=== PATIENT | male | born 1965 | race Caucasian/White ===

== ENCOUNTER → 2018-05-17 14:05 | Outpatient (CLI) | payer OTHER, MEDICAID, SELFPAY ==
--- NOTE | 2018-05-17 | DI.RAD.S_ITS ---
PROCEDURE: XR KNEE RT 3V INDICATIONS: R KNEE EFFUSION TECHNIQUE: 3 views of the knee were acquired. COMPARISON: None. FINDINGS: Bones: No fractures or dislocations. No suspicious bony lesions. Posterior patellar marginal spurs. Soft tissues: Mild joint effusion. No suspicious soft tissue calcifications. IMPRESSION: 1. Early degenerative changes femoral patellar joint. 2. Small knee joint effusion. Dictated by: Álvaro Blanton M.D. on 05/17/2018 at 15:03 Approved by: Álvaro Blanton M.D. on 05/17/2018 at 15:04
== END ==
PROVIDERS: Visit Provider Nurse Practitioner
DX: M25.461 Effusion, right knee (principal)
CPT/HCPCS: 73562

== ENCOUNTER → 2018-06-08 15:26 | Outpatient (CLI) | payer OTHER, MEDICAID, SELFPAY ==
--- NOTE | 2018-06-08 | DI.RAD.S_ITS ---
PROCEDURE: XR KNEE LT 3V INDICATIONS: LEFT KNEE PAIN TECHNIQUE: 3 views of the knee were acquired. COMPARISON: None. FINDINGS: Bones: No fractures or dislocations. No suspicious bony lesions. Soft tissues: Possible small joint effusion. No suspicious soft tissue calcifications. IMPRESSION: Possible small knee joint effusion. Dictated by: Cuco Rene M.D. on 06/08/2018 at 16:13 Approved by: Cuco Rene M.D. on 06/08/2018 at 16:15
== END ==
PROVIDERS: Family Provider Physical Medicine & Rehabilitation; PCP Physical Medicine & Rehabilitation; Visit Provider Nurse Practitioner
DX: M25.562 Pain in left knee (principal)
CPT/HCPCS: 73562

== ENCOUNTER → 2020-01-30 11:02 | Outpatient (CLI) | payer OTHER, MEDICAID, SELFPAY ==
--- NOTE | 2020-01-30 11:06 | DIET.PN ---
Dietary Progress Note Assessment: 54y M here for 50# wt gain over past year and concerns for preDM wanting nutrition advice to lose weight and lower A1c. 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 Labs/meds: pre-DM, takes testosterone, once daily protonix, HTN med BP reported as 120/70 HT: 5'11 WT: 310# UBW: gained 40-50# in past year BMI: 43.2 Usual Day: wakes 4-7am-doesn't sleep well B: [employer] Energy drink (Bang-apple, rain) 930: grape nuts c 2% and banana, Lithuanian muffin c butter or bagel sandwich c thai, ham 2pm: Progresso soup c saltines, aged cheddar, or bagel sandwich 6pm: Has dinner c Mom: homemade pizza on naan, split pea soup, chicken soup, freezer chicken pot pie evening snack: ice cream- Breyers vanilla villar c a cookie (4-5 servings out of a quart) avoids high fructose corn syrup Physical Activity: currently no planned activity, wants to start swimming once he gets a job and a regular schedule. Impression: Pt hx includes competitive athletic training c ability to consume thousands of calories per day. Pt diet is carbohydrate heavy (~90g for breakfast) with moderate protein and low in fruits and veggies along with large portion size. This disproportion along with sedentary lifestyle has led to accelerated weight gain along with aggravation of LE edema, sleep apnea, poor sleep, and GERD breakthrough sx. Nutrition Diagnosis:obesity r/t undesirable food choices and physical inactivity aeb pt food recall shows high carb, low F/V, and excessive kcals, pt has no current planned physical activity, weight gain of 50# in past year, and BMI 43.2. Interventions: 1. Discussed overall diet imbalance, brain stormed strategies to balance meals and snacks. 2. Discussed weight loss options including carb controlled diet, intermittent fasting, ketogenic diet, [employer], and bariatric surgery with a focus on lifestyle change being a consistent factor in being able to sustain weight loss. Pt expressed frustration in wanting to lose weight but not wanting to do the work to get there, hoping a quick fix diet would cause sustained weight loss. Pt interested in meal delivery system like [employer], however, this RD expressed portions were small and overall food quality low. Pt received carb counting information and recc limiting carbs to 45g per meal and 30g per snack as well as a food group balance sheet to encourage pt to increase F/V. Monitoring/Evaluations: Pt may schedule f/u once he is employed and has started working out
== END ==
PROVIDERS: Family Provider Physical Medicine & Rehabilitation; PCP Nurse Practitioner Family; Referring Provider Nurse Practitioner Family; Visit Provider Nurse Practitioner Family
DX: E66.9 Obesity, unspecified (principal); Z68.41 Body mass index [BMI] 40.0-44.9, adult; Z71.3 Dietary counseling and surveillance
CPT/HCPCS: 97802

== ENCOUNTER 2020-10-01 09:04 | Outpatient (RCR) | payer OTHER, MEDICAID, SELFPAY ==
--- NOTE | 2020-10-01 09:28 | PT-OP ANOTE ---
Pt arrives late to evaluation. Upon bringing pt back to room, he reports agitation about having to wear mask. He states that he cannot tolerate wearing a mask and asks to leave. Will d/c PT eval and appointments.
--- NOTE | 2020-10-01 09:37 | PT.OPDS ---
Pt does not tolerate mask wearing and states that he cannot do PT if he has to wear a mask, leaves clinic. Current Diagnoses Low back pain (10/01/20) Other symptoms and signs involving the musculoskeletal system (10/01/20) Visit Care Team Role Provider Type ALEKS Darling Family Provider Non-Staff Specialty: Medical Address: [address] [place] [address] [place], [address] Email: Cristian Landon MD Attending Provider Non-Staff Primary Care Provider Referring Provider Specialty: General Surgery Address: [address] [place] [address], [id number] Email:
== END 2020-10-06 08:37 ==
LOC: PHYS 09:04
PROVIDERS: Family Provider Nurse Practitioner Family; PCP Surgery; Referring Provider Surgery; Visit Provider Surgery
DX: M54.5 Low back pain (principal); R29.898 Other symptoms and signs involving the musculoskeletal system

== ENCOUNTER → 2020-10-01 09:47 | Outpatient (CLI) | payer OTHER, MEDICAID, SELFPAY ==
[2020-10-01 11:34] LABS: Prostate Specific Antigen 3.45 ng/mL (0.10-4.00)
== END ==
PROVIDERS: Family Provider Nurse Practitioner Family; PCP Nurse Practitioner Family; Referring Provider Urology; Visit Provider Urology
DX: Z12.5 Encounter for screening for malignant neoplasm of prostate (principal)
CPT/HCPCS: 36415; 84153

== ENCOUNTER 2021-03-10 09:44 | Emergency (ER) | payer OTHER, MEDICAID, SELFPAY ==
[2021-03-10 09:45] VITALS: BP 140/68; PULSE 98; RESP 18; TEMP 36.6; O2SAT 100; BMI 18.8
--- NOTE | 2021-03-10 09:47 | ED_ITS ---
HPI - SOB/Dyspnea General Chief Complaint: Chest Pain Stated Complaint: See if he has Blood clots in lungs, per his DR. Time Seen by Provider: 03/10/21 09:47 Source: patient Mode of arrival: Ambulatory Limitations: no limitations History of Present Illness HPI Narrative: 55-year-old male nonsmoker with history of BPH presents with a chief complaint of a reproducible sharp and stabbing area of pain in his right lateral chest. He states it started a few days ago when he was bending over lifting something. His pain is worse with motion and palpation. He denies any squeezing, heaviness or exertional component. Denies shortness of breath, nausea, vomiting or unexplained diaphoresis. He denies worsening with short of breath and no cough or hemoptysis. He denies any history of cancer or blood clot nor any recent travel. MD Complaint: chest pain Onset (ago): day(s) Context: other Severity: mild Consistency/Duration: intermittent Relieving factors: rest Exacerbating factors: movement Associated symptoms: denies other symptoms Treatment prior to arrival: none Related Data Home oxygen amount: none Home Medications Medication Instructions Recorded Confirmed doxazosin 8 mg tablet 8 mg PO DAILY 12/12/20 12/17/20 losartan 100 mg tablet 100 mg PO DAILY 12/12/20 12/17/20 pantoprazole 20 mg tablet,delayed 20 mg PO DAILY 12/12/20 12/17/20 release testosterone 50 mg/5 gram (1 %) 1 packet TRANSDERMAL DAILY 12/12/20 12/17/20 transdermal gel Previous Rx's Medication Instructions Recorded ketorolac 10 mg PO Q6H PRN #14 tab 03/10/21 lidocaine [Lidoderm] 1 patch TOP DAILY #15 each 03/10/21 Allergies Allergy/AdvReac Type Severity Reaction Status Date / Time No Known Drug Allergies Allergy Verified 03/10/21 10:02 Review of Systems Constitutional Constitutional: Denies chills, Denies fatigue, Denies fever(s), Denies frequent falls, Denies lethargy and Denies weakness Eyes Eyes: Denies change in vision, Denies eye discharge, Denies irritation and Denie s loss of vision ENT Ears, Nose, Mouth, and Throat: Denies change in voice, Denies dizziness, Denies neck pain, Denies sore throat and Denies throat swelling Cardiovascular Cardiovascular: Denies chest pain, Denies irregular heart rhythm, Denies lightheadedness, Denies palpitations, Denies dyspnea, Denies dyspnea on exertion and Denies orthopnea Comments: Sharp and stabbing reproducible chest pain right lateral ribs Respiratory Respiratory: Denies cough, Denies dyspnea, Denies dyspnea on exertion and Denies wheezing Gastrointestinal Gastrointestinal: Denies abdominal pain, Denies change in bowel habits, Denies diarrhea, Denies nausea and Denies vomiting Musculoskeletal Musculoskeletal: Denies neck pain and Denies numbness Integumentary/Breasts Skin/Breast: Denies pruritus, Denies erythema, Denies rash and Denies wounds Neurologic Neurologic: Denies behavioral changes, Denies confusion, Denies dizziness, Denies frequent falls, Denies loss of vision, Denies numbness and Denies weakness Psychiatric Psychiatric: Denies anxiety, Denies behavioral changes, Denies confusion, Denies depression, Denies homicidal ideation and Denies suicidal ideation Endocrine Endocrine: Denies fatigue, Denies flushing and Denies palpitations Hematologic/Lymphatic Hematologic/Lymphatic: Denies easy bruising Allergic/Immunologic Allergic/Immunologic: Denies urticaria, Denies throat swelling and Denies wheezing Patient History Medical History (Updated 03/10/21 @ 11:22 by Alvarez Elizalde DO) BPH w urinary obs/LUTS GERD (gastroesophageal reflux disease) Hypertension Surgical History History of carpal tunnel surgery History of knee replacement History of lumbar discectomy History of tonsillectomy Social History marital status: occupational status: employed Smoking Status: Never smoker alcohol intake: never caffeine: Yes Smoking Status: Never smoker Exam Narrative Exam Narrative: GENERAL: [55] year old patient appears stated age. Well- nourished, well-developed patient, in mild distress. HEAD: Atraumatic. Normocephalic. EYES: Pupils equal round and reactive. Extraocular motions intact. No scleral icterus. No injection or drainage. ENT: Nose without bleeding, purulent drainage. Throat without erythema, tonsillar hypertrophy or exudate. Airway patent. NECK: Trachea midline. Non tender CARDIOVASCULAR: Regular rate and rhythm without murmurs, gallops, or rubs. Reproducible, pinpoint tenderness on the right lateral rib worse with palpation and range of motion of right upper extremity. This is the pain that brought him in. Skin is exposed and no erythema, vesicles or other abnormal finding RESPIRATORY: Clear to auscultation. Breath sounds equal bilaterally. No wheezes, rales, or rhonchi. GASTROINTESTINAL: Abdomen soft, non-tender, nondistended. EXTREMITIES: No edema or joint tenderness. BACK: Nontender without deformity or crepitance. No flank tenderness. NEURO: AOx3. SKIN: No rash or erythema of visible areas Initial Vital Signs Initial Vital Signs: Vital Signs Temperature 97.9 F 03/10/21 09:45 Pulse Rate 98 H 03/10/21 09:45 Respiratory Rate 18 03/10/21 09:45 Blood Pressure 140/68 03/10/21 09:45 Pulse Oximetry 100 03/10/21 09:45 Scores HEART Score Heart Score history: Slightly Suspicious Heart Score EKG: Normal Heart Score Age: 45-64 years old Heart Score risk factors: No known risk factors Heart Score troponin: < or = to normal limit Heart Score Total: 1 Course Orders Ordered: ED Orders 03/10/21 09:50 XR chest 1V Stat EKG-12 Lead Stat 03/10/21 10:18 Complete Blood Count AUTO DIFF Stat Comprehensive Metabolic Panel Stat D Dimer Stat Lipase Stat NT-proBNP (BNP-Adult 18+) Stat Troponin & CK Cardiac Panel Stat Discontinued Medications Sodium Chloride (Normal Saline 0.9%) 1,000 mls @ 150 mls/hr IV CONT REGGIE Last Admin: 03/10/21 11:16 Dose: 150 mls/hr Documented by: CRUZ Ketorolac Tromethamine (Ketorolac 60 Mg/2 Ml Vial) 15 mg IV NOW ONE Stop: 03/10/21 11:21 Last Admin: 03/10/21 11:31 Dose: 15 mg Documented by: CRUZ Vital Signs Vital signs: Vital Signs - 8 hr 03/10/21 09:45 03/10/21 11:52 Temperature 97.9 F Pulse Rate 98 H 75 Respiratory Rate 18 18 Blood Pressure 140/68 145/77 H Pulse Oximetry 100 95 MDM - SOB/Dyspnea Lab Data Result diagrams: 03/10/21 10:18 03/10/21 10:18 Labs: Lab Results 03/10/21 03/10/21 03/10/21 Range/Units 10:18 10:18 10:18 WBC 8.9 (4.5-11.0) X10^3/uL RBC 5.01 (4.5-5.9) X10^6/uL Hgb 14.3 (13.5-17.5) g/dL Hct 44.1 (41-53) % MCV 88.1 (80-100) fL MCH 28.6 (26-34) PG MCHC 32.5 (30-36) % RDW 15.1 H (11.6-14.8) % Plt Count 187 (150-400) X10^3/uL Neut % (Auto) 80.1 H (50-75) % Lymph % (Auto) 8.0 L (25-40) % [place] % (Auto) 8.9 (3-14) % Eos % (Auto) 2.1 (2-4) % Baso % (Auto) 0.9 (0-2) % Neut # (Auto) 7100 H (4039-0442) /uL Lymph # (Auto) 700 L (0093-4985) /uL [place] # (Auto) 800 (0-900) /uL Eos # (Auto) 200 (0-450) /uL Baso # (Auto) 100 (0-100) /uL D-Dimer 383 H (<230) ng/mL Sodium (137-145) mmol/L Potassium (3.4-5.1) mmol/L Chloride (98-107) mmol/L Carbon Dioxide (22-32) mmol/L BUN (9-20) mg/dL Creatinine (0.66-1.25) mg/dL Estimated GFR (>60) mL/min BUN/Creatinine Ratio (6-22) Glucose (70-100) mg/dL Calcium (8.4-10.2) mg/dL Total Bilirubin (0.2-1.3) mg/dL AST (17-59) IU/L ALT (<50) IU/L Alkaline Phosphatase (38-126) U/L Total Creatine Kinase (55-170) U/L CK-MB (CK-2) (<2.37) ng/mL CK-MB (CK-2) Rel Index (1.5-5.0) % Troponin I (0.01-0.034) ng/mL NT-Pro-B Natriuret Pep 39 (<125) pg/mL Total Protein (6.3-8.2) g/dL Albumin (3.5-5.0) g/dL Globulin (1.7-4.1) g/dL Albumin/Globulin Ratio (1.0-2.8) Lipase (23-300) U/L 03/10/ Range/Units 10:18 WBC (4.5-11.0) X10^3/uL RBC (4.5-5.9) X10^6/uL Hgb (13.5-17.5) g/dL Hct (41-53) % MCV (80-100) fL MCH (26-34) PG MCHC (30-36) % RDW (11.6-14.8) % Plt Count (150-400) X10^3/uL Neut % (Auto) (50-75) % Lymph % (Auto) (25-40) % [place] % (Auto) (3-14) % Eos % (Auto) (2-4) % Baso % (Auto) (0-2) % Neut # (Auto) (9405-4093) /uL Lymph # (Auto) (2167-3028) /uL [place] # (Auto) (0-900) /uL Eos # (Auto) (0-450) /uL Baso # (Auto) (0-100) /uL D-Dimer (<230) ng/mL Sodium 138 (137-145) mmol/L Potassium 4.1 (3.4-5.1) mmol/L Chloride 100 (98-107) mmol/L Carbon Dioxide 30 (22-32) mmol/L BUN 16 (9-20) mg/dL Creatinine 0.88 (0.66-1.25) mg/dL Estimated GFR > 60.0 (>60) mL/min BUN/Creatinine Ratio 18.2 (6-22) Glucose 157 H (70-100) mg/dL Calcium 9.2 (8.4-10.2) mg/dL Total Bilirubin 0.5 (0.2-1.3) mg/dL AST 30 (17-59) IU/L ALT 36 (<50) IU/L Alkaline Phosphatase 75 (38-126) U/L Total Creatine Kinase 308 H (55-170) U/L CK-MB (CK-2) 7.20 H (<2.37) ng/mL CK-MB (CK-2) Rel Index 2.3 (1.5-5.0) % Troponin I < 0.012 (0.01-0.034) ng/mL NT-Pro-B Natriuret Pep (<125) pg/mL Total Protein 6.5 (6.3-8.2) g/dL Albumin 3.9 (3.5-5.0) g/dL Globulin 2.6 (1.7-4.1) g/dL Albumin/Globulin Ratio 1.5 (1.0-2.8) Lipase 33 (23-300) U/L MDM Narrative Medical decision making narrative: Multiple causes of chest pain considered including KS, PE, pneumothorax, pneumonia, aortic dissection, and pleurisy. Patient reports no radiation, no diaphoresis, no provocation with exertion, and no vomiting Patient's symptoms improved over duration of stay with above-stated therapies. Findings and discharge diagnosis discussed with patient/family followed by verbalization of understanding Return precautions discussed with patient/family whom verbalize understanding. Discharge Plan Departure Patient Disposition: Home Clinical Impression: Atypical chest pain Instructions: DI for Atypical Chest Pain Activity Restrictions/Additional Instructions: *You have been diagnosed with [chest wall pain consistent with inflammation or spasm. Your lab work, EKG, chest x-ray are very reassuring] *What to do: *Take medications as directed *Follow up with your primary care provider in 2-3 days, call for an appointment. Let them know you were seen in the Emergency Department and that we ask that you be seen in follow up *Return to ER if you should have any new, worsening or concerning symptoms, such as [increasing pain, shortness of breath, fever greater than 101 or other bothersome symptoms] Prescriptions: New ketorolac 10 mg tablet 10 mg PO Q6H PRN (Reason: pain) Qty: 14 RF: 0 lidocaine [Lidoderm] 5 % adhesive patch,medicated 1 patch TOP DAILY Qty: 15 RF: 0 No Action doxazosin 8 mg tablet 8 mg PO DAILY RF: 0 testosterone 50 mg/5 gram (1 %) gel 1 packet transdermal DAILY RF: 0 pantoprazole 20 mg tablet,delayed release (DR/EC) 20 mg PO DAILY RF: 0 losartan 100 mg tablet 100 mg PO DAILY RF: 0 Referrals: [place],Jennifer, GARMENT PRESSER [Primary Care Provider] -
--- NOTE | 2021-03-10 09:50 | DI.RAD.S_ITS ---
PROCEDURE: XR CHEST 1V INDICATIONS: severe right sided chest pain TECHNIQUE: One view of the chest was acquired. COMPARISON: None. FINDINGS: Surgical changes and devices: None. Lungs and pleura: Lungs are clear. No pleural effusions or pneumothorax. Mediastinum: Mediastinal contours appear normal. Heart size is normal. Bones and chest wall: No suspicious bony lesions. Overlying soft tissues appear unremarkable. IMPRESSION: No acute cardiopulmonary disease process. Dictated by: Debbi Barnhart MD, PhD on 03/10/2021 at 10:42 Approved by: Debbi Barnhart MD, PhD on 03/10/2021 at 10:43
[2021-03-10 10:31] LABS: Add Manual Diff / Slide Review NO; Basophils Absolute Auto 100 /uL (0-100); Basophils Percent Auto 0.9 % (0-2); Eosinophils Absolute Auto 200 /uL (0-450); Eosinophils Percent Auto 2.1 % (2-4); Hematocrit 44.1 % (41-53); Hemoglobin 14.3 g/dL (13.5-17.5); Lymphocytes Absolute Auto 700 /uL (1100-4500); Mean Corpuscular HGB Conc 32.5 % (30-36); Mean Corpuscular Hemoglobin 28.6 PG (26-34); Mean Corpuscular Volume 88.1 fL (80-100); Monocytes Absolute Auto 800 /uL (0-900); Monocytes Percent Auto 8.9 % (3-14); Neutrophils Absolute Auto 7100 /uL (1500-7000); Neutrophils Percent Auto 80.1 % (50-75); Platelet Count 187 X10^3/uL (150-400); Red Blood Cell Count 5.01 X10^6/uL (4.5-5.9); Red Cell Distribution Width 15.1 % (11.6-14.8); White Blood Cell Count 8.9 X10^3/uL (4.5-11.0)
[2021-03-10 10:42] LABS: Alanine Aminotransferase 36 IU/L (<50); Albumin 3.9 g/dL (3.5-5.0); Albumin Globulin Ratio 1.5 (1.0-2.8); Alkaline Phosphatase 75 U/L (38-126); Aspartate Aminotransferase 30 IU/L (17-59); BUN Creatinine Ratio 18.2 (6-22); Bilirubin Total 0.5 mg/dL (0.2-1.3); Blood Urea Nitrogen 16 mg/dL (9-20); Calcium 9.2 mg/dL (8.4-10.2); Carbon Dioxide 30 mmol/L (22-32); Chloride 100 mmol/L (98-107); Creatine Kinase 308 U/L (55-170); Estimated Glomerular Filt Rate > 60.0 mL/min (>60); Globulin 2.6 g/dL (1.7-4.1); Glucose 157 mg/dL (70-100); HEMOLYSIS < 15 (0-50); Lipase 33 U/L (23-300); Potassium 4.1 mmol/L (3.4-5.1); Sodium 138 mmol/L (137-145); Total Protein 6.5 g/dL (6.3-8.2)
[2021-03-10 10:44] LABS: D Dimer 383 ng/mL (<230)
[2021-03-10 10:51] LABS: NT-proBNP (BNP-Adult 18+) 39 pg/mL (<125)
[2021-03-10 10:54] LABS: Troponin I < 0.012 ng/mL (0.01-0.034)
[2021-03-10 10:57] LABS: CKMB % Relative Index 2.3 % (1.5-5.0)
[2021-03-10] MEDS: SODIUM CHLORIDE 0.9% 1,000 ML 150 ML IV (11:16)
[2021-03-10] MEDS: KETOROLAC 60 MG/2 ML VIAL 15 MG IV (11:31)
[2021-03-10 11:52] VITALS: BP 145/77; PULSE 75; RESP 18; O2SAT 95
--- NOTE | 2021-03-16 09:25 | PC.NURSE ---
IV NS d/c at 1140 hrs.
--- NOTE | 2022-05-27 16:18 | PC.NURSE ---
Late entry: IV fluids/ NACL stopped at 1152 (03/10/21)
== END 2021-03-10 11:54 | disposition home or self-care (01) ==
PROVIDERS: Emergency Provider Emergency Medicine; Family Provider Nurse Practitioner Family; PCP Nurse Practitioner Family; Referring Provider Emergency Medicine
DX: R07.89 Other chest pain (principal)
CPT/HCPCS: 36415; 71045; 80053; 82550; 82553; 83690; 83880; 84484; 85025; 85379; 93005; 93010; 96374; 99284; J1885

== ENCOUNTER → 2021-06-23 12:08 | Outpatient (CLI) | payer OTHER, MEDICAID, SELFPAY ==
--- NOTE | 2021-06-23 | DI.RAD.S_ITS ---
PROCEDURE: XR RIBS RT 2V INDICATIONS: RIGHT SIDED CHEST WALL PAIN AT MIDAXILLARY LINE TECHNIQUE: 2 views of the right lower lateral ribs were acquired. COMPARISON: None. FINDINGS: Surgical changes and devices: None. Bones and chest wall: No dislocations. There are a total of 2 lateral rib fracture, 8 and 9th rib area. No suspicious bony lesions. Overlying soft tissues appear unremarkable. Lungs and pleura: The visualized lung appears clear. No pleural effusions or pneumothorax are visible. IMPRESSION: Lateral right 8th and 9th rib fractures. The clinical history indicates no known trauma. Nuclear medicine bone scan may be warranted to determine whether additional osseous lesions are present elsewhere. Dictated by: Jonathan James M.D. on 06/23/2021 at 15:14 Approved by: Jonathan James M.D. on 06/23/2021 at 15:17
== END ==
PROVIDERS: Family Provider Nurse Practitioner Family; PCP Nurse Practitioner Family; Referring Provider Nurse Practitioner Family; Visit Provider Nurse Practitioner Family
DX: R07.89 Other chest pain (principal); S22.41XA Multiple fractures of ribs, right side, initial encounter for closed fracture
CPT/HCPCS: 71100

== ENCOUNTER → 2021-07-21 08:29 | Outpatient (CLI) | payer OTHER, MEDICAID, SELFPAY ==
[2021-07-21 09:40] LABS: Prostate Specific Antigen 3.84 ng/mL (0.10-4.00)
== END ==
PROVIDERS: Family Provider Nurse Practitioner Family; PCP Nurse Practitioner Family; Referring Provider Specialist; Visit Provider Specialist
DX: R97.20 Elevated prostate specific antigen [PSA] (principal)
CPT/HCPCS: 36415; 84153

== ENCOUNTER → 2021-09-14 10:23 | Outpatient (CLI) | payer OTHER, MEDICAID, SELFPAY ==
[2021-09-14 11:48] LABS: Prostate Specific Antigen 3.15 ng/mL (0.10-4.00)
== END ==
PROVIDERS: Family Provider Nurse Practitioner Family; PCP Nurse Practitioner Family; Referring Provider Specialist; Visit Provider Specialist
DX: N40.1 Benign prostatic hyperplasia with lower urinary tract symptoms (principal); N13.8 Other obstructive and reflux uropathy
CPT/HCPCS: 36415; 84153

== ENCOUNTER → 2021-11-05 08:16 | Outpatient (CLI) | payer OTHER, MEDICAID, SELFPAY | PROVIDERS: Family Provider Nurse Practitioner Family; PCP Nurse Practitioner Family; Referring Provider Nurse Practitioner Family; Visit Provider Nurse Practitioner Family | DX: M25.531 Pain in right wrist (principal) | CPT/HCPCS: 95886; 95909 ==

== ENCOUNTER → 2022-04-21 12:42 | Outpatient (CLI) | payer OTHER, MEDICAID, SELFPAY ==
--- NOTE | 2022-04-21 | DI.RAD.S_ITS ---
PROCEDURE: XR LUMBAR SPINE 2-3V INDICATIONS: Low back pain, unspecified TECHNIQUE: 3 views of the lumbar spine were acquired. COMPARISON: None. FINDINGS: Bones: There are 5 [id number] lumbar vertebral bodies. There is loss of the expected lumbar lordosis. There is diffuse intervertebral disc space narrowing, endplate sclerosis, osteophytosis, and facet sclerosis throughout the lumbar spine. Mild anterior wedging is present throughout the lumbar spine. Soft tissues: Overlying bowel gas pattern is normal. No suspicious soft tissue calcifications. IMPRESSION: Severe degenerative change throughout the lumbar spine. Mild anterior wedging is likely chronic in nature. Dictated by: Carmen Junior M.D. on 04/21/2022 at 17:10 Approved by: Carmen Junior M.D. on 04/21/2022 at 17:12
== END ==
PROVIDERS: Family Provider Nurse Practitioner Family; PCP Nurse Practitioner Family; Referring Provider Naturopath; Visit Provider Naturopath
DX: M47.816 Spondylosis without myelopathy or radiculopathy, lumbar region (principal); M54.50 Low back pain, unspecified
CPT/HCPCS: 72100

== ENCOUNTER → 2022-09-14 09:08 | Outpatient (CLI) | payer OTHER, MEDICAID, SELFPAY ==
[2022-09-14 11:13] LABS: Prostate Specific Antigen 2.41 ng/mL (0.10-4.00)
== END ==
PROVIDERS: Family Provider Nurse Practitioner Family; PCP Nurse Practitioner Family; Referring Provider Specialist; Visit Provider Specialist
DX: N13.8 Other obstructive and reflux uropathy (principal); N40.1 Benign prostatic hyperplasia with lower urinary tract symptoms
CPT/HCPCS: 36415; 84153

== ENCOUNTER → 2023-01-05 11:37 | Outpatient (CLI) | payer OTHER, SELFPAY ==
--- NOTE | 2023-01-05 11:41 | DI.RAD.S_ITS ---
PROCEDURE: XR LUMBAR SPINE 2-3V INDICATIONS: OTHER INTERVERTEBRAL DISC DEGENERATION TECHNIQUE: 3 views of the lumbar spine were acquired. COMPARISON: [facility], CR, XR CHEST 1V, 03/10/2021, 10:26. [facility], CR, XR LUMBAR SPINE 2-3V, 04/21/2022, 12:50. FINDINGS: Bones: 5 [id number] vertebrae are present. There is a transitional S1. There is mild levoscoliosis. Grade 1 anterolisthesis of L5 on S1. No vertebral body compression fractures. No suspicious bony lesions. Degenerative disc disease is present, severe at L3-L4 and L4-L5, moderate at L1-L2, L2-L3 and L5-S1. Severe facet arthropathy at L4-L5 and L5-S1. Soft tissues: Overlying bowel gas pattern is normal. No suspicious soft tissue calcifications. IMPRESSION: 1. Scoliosis and severe degenerative disc and facet disease in lumbar spine. 2. Transitional anatomy is present. Dictated by: Cuco Rene M.D. on 01/05/2023 at 16:46 Approved by: Cuco Rene M.D. on 01/05/2023 at 16:50
--- NOTE | 2023-01-05 11:42 | DI.RAD.S_ITS ---
PROCEDURE: XR KNEE RT 3V INDICATIONS: PAIN IN RIGHT HIP TECHNIQUE: 3 views of the knee were acquired. COMPARISON: [facility], , XR KNEE RT 3V, 05/17/2018, 14:24. FINDINGS: Bones: No fractures or dislocations. No suspicious bony lesions. Mild tricompartmental osteoarthritic changes. Soft tissues: Trace joint effusion. No suspicious soft tissue calcifications. IMPRESSION: 1. Mild osteoarthritis. 2. Trace knee joint effusion. Dictated by: Cuco Rene M.D. on 01/05/2023 at 16:43 Approved by: Cuco Rene M.D. on 01/05/2023 at 16:44
--- NOTE | 2023-01-05 11:42 | DI.RAD.S_ITS ---
PROCEDURE: XR HIP W PEL IF DONE RT 2V INDICATIONS: PAIN TECHNIQUE: AP pelvis with lateral view(s) of the right hip(s). COMPARISON: [facility], , XR LUMBAR SPINE 2-3V, 01/05/2023, 11:57. FINDINGS: Bones: No fractures or dislocations. Pelvic ring appears intact. No suspicious bony lesions. Severe osteoarthritis of the right hip with joint space narrowing and subchondral cyst formation. There is deformity of the right femoral head. Mild arthritic changes are seen in left hip and both sacroiliac joints. [id number] degenerative disc disease in the lower lumbar spine. There is transitional anatomy with partial sacralization of L5. Soft tissues: The visualized bowel gas pattern is normal. No suspicious soft tissue calcifications. IMPRESSION: Severe osteoarthritis. Dictated by: Cuco Rene M.D. on 01/05/2023 at 16:38 Approved by: Cuco Rene M.D. on 01/05/2023 at 16:39
== END ==
PROVIDERS: Family Provider Nurse Practitioner Family; PCP Nurse Practitioner Family; Referring Provider Nurse Practitioner Family; Visit Provider Nurse Practitioner Family
DX: M51.36 Other intervertebral disc degeneration, lumbar region (principal); M47.817 Spondylosis without myelopathy or radiculopathy, lumbosacral region; M47.816 Spondylosis without myelopathy or radiculopathy, lumbar region; M51.37 Other intervertebral disc degeneration, lumbosacral region; M16.11 Unilateral primary osteoarthritis, right hip; M17.11 Unilateral primary osteoarthritis, right knee; M25.551 Pain in right hip
CPT/HCPCS: 72100; 73502; 73562

== ENCOUNTER 2024-01-29 17:11 | Observation (INO) | payer OTHER, MEDICAID, SELFPAY ==
[2024-01-29] VITALS (32 sets, daily range): BP systolic 87–178; BP diastolic 53–123; PULSE 61–114; RESP 0–38; TEMP 35.7–37.5; O2SAT 90–97; BMI 41.3
--- NOTE | 2024-01-29 17:15 | DI.RAD.S_ITS ---
PROCEDURE: XR CHEST 1V INDICATIONS: respiratory failure TECHNIQUE: One view of the chest was acquired. COMPARISON: [facility], CR, XR CHEST 1V, 03/10/2021, 10:26. FINDINGS: Surgical changes and devices: None. Lungs and pleura: Elevated left hemidiaphragm. Left basilar atelectasis. Mediastinum: Mediastinal contours appear normal. Heart size is normal. Bones and chest wall: No suspicious bony lesions. Overlying soft tissues appear unremarkable. IMPRESSION: No acute cardiopulmonary abnormality is seen. Approved by: Charanjit Oakes M.D. on 01/29/2024 at 17:30
--- NOTE | 2024-01-29 17:16 | ED.GENADULT ---
HPI - General Adult <Maxwell Mesa MD - Last Filed: 01/29/24 19:17> General Chief complaint: Shortness of Breath/Dyspnea Stated complaint: SOB Time Seen by Provider: 01/29/24 17:15 History of Present Illness HPI narrative: 58-year-old male with history of diabetes, BPH, substance use presents with shortness of breath. Patient arrives critically ill, in substantial respiratory distress in setting of reported COPD. He states he has been getting more short of breath for 2 days, with no fever or pain but with cough, though has difficulty providing history beyond this due to shortness of breath. EMS gave nebs which appeared to be starting to help. Patient is also able to note he smokes opiates, though additional history limited at this time. Related Data Home Medications Medication Instructions Recorded Confirmed losartan 100 mg tablet 100 mg PO DAILY 12/12/20 11/15/23 testosterone 50 mg/5 gram (1 %) 1 packet transdermal DAILY 12/12/20 11/15/23 transdermal gel acetylcysteine 600 mg capsule (NAC) 600 mg PO BID 11/15/23 11/15/23 metformin 500 mg tablet,extended 500 mg PO DAILY 11/15/23 11/15/23 release 24 hr Previous Rx's Medication Instructions Recorded doxazosin 8 mg tablet 8 mg PO BEDTIME #90 tabs 09/03/22 Allergies Allergy/AdvReac Type Severity Reaction Status Date / Time No Known Drug Allergies Allergy Verified 01/29/24 17:27 Review of Systems <Maxwell Mesa MD - Last Filed: 01/29/24 19:17> Review of Systems Narrative: Available history as above. Patient critically ill. Patient History <Maxwell Mesa MD - Last Filed: 01/29/24 19:17> Medical History (Updated 01/29/24 @ 22:39 by Miguel Angel Bland DO) Nocturia Diabetes Obesity BPH w urinary obs/LUTS Hypertension GERD (gastroesophageal reflux disease) Surgical History History of lumbar discectomy History of tonsillectomy History of carpal tunnel surgery History of knee replacement Social History marital status: occupational status: employed Smoking Status: Never smoker alcohol intake: never caffeine: Yes Smoking Status: Never smoker alcohol intake frequency: 0-2 drinks per day Substance Use Type: does not use Exam <Maxwell Mesa MD - Last Filed: 01/29/24 19:17> Narrative Exam Narrative: Const: Patient in severe respiratory distress, able to hold the fingers to answer questions and speak in one-word intermittently; he appears nontoxic Eyes: PERRLA, EOMI ENT: mucous membranes moist Neck: supple, non-tender Resp: Poor aeration bilaterally with faint expiratory wheezes Card: regular rate and rhythm, no murmurs Abd: non tender diffusely, no rigidity or rebound or guarding Back: no T or L spine tenderness, no CVA tenderness bilaterally Extrem: no deformities, no swelling bilateral lower extremities, 2+ distal pulses all extremities Neuro: ANOx4, voice professor grossly intact, grossly intact sensation and strength all extremities Skin: no rash, warm and dry Initial Vital Signs Initial Vital Signs: Vital Signs Pulse Rate 114 H 01/29/24 17:15 Pulse Oximetry 97 01/29/24 17:15 Oxygen Delivery Method Nasal Cannula 01/29/24 17:15 Oxygen Flow Rate 5 01/29/24 17:15 <Miguel Angel Bland DO - Last Filed: 01/29/24 23:14> Initial Vital Signs Initial Vital Signs: Vital Signs Pulse Rate 114 H 01/29/24 17:15 Pulse Oximetry 97 01/29/24 17:15 Oxygen Delivery Method Nasal Cannula 01/29/24 17:15 Oxygen Flow Rate 5 01/29/24 17:15 Course <Maxwell Mesa MD - Last Filed: 01/29/24 19:17> Course Course Narrative: This patient presents critically ill with what seems most consistent with respiratory failure from COPD, and I am immediately initiating broad and aggressive treatment and workup with BiPAP, Versed 2 mg IV for anxiety during this, steroids, nebulizers, broad-spectrum antibiotics. We are obtaining blood cultures, VBG, respiratory swab, CBC, CMP, EKG, labs as above, chest x-ray and closely reassessing. CBC with leukocytosis, no anemia or thrombocytopenia. Chemistry grossly reassuring. EKG shows sinus tachycardia without acute ischemia or immediately concerning interval prolongation. VBG does not currently show respiratory acidosis, however this is after substantial treatment. Patient's respiratory function is clearly improving, with improved aeration and now more clear wheezing, consistent with improvement. He refused further BiPAP though appears to be tolerating nasal cannula and is now speaking in full sentences. Preceding aspiration is also possible. Regardless, he is receiving antibiotics, aggressive care here and will be admitted pending remainder of workup. Radiology review of CXR below, which I agree with on my independent review: FINDINGS: Surgical changes and devices: None. Lungs and pleura: Elevated left hemidiaphragm. Left basilar atelectasis. Mediastinum: Mediastinal contours appear normal. Heart size is normal. Bones and chest wall: No suspicious bony lesions. Overlying soft tissues appear unremarkable. IMPRESSION: No acute cardiopulmonary abnormality is seen. Approved by: Charanjit Oakes M.D. on 01/29/2024 at 17:30 At this juncture, while I think COPD is most likely, I do feel patient now merits CT angio chest to rule out pulmonary embolism or assess for pneumonia or aspiration. I am signing out to Dr. Bland with plan to follow up this CT then admit. Patient continues to improve, though remains on nasal cannula. He has been updated and agrees with plan. CRITICAL CARE: I spent 45min minutes assessing, resuscitating, reassessing this patient, interpreting studies, speaking with family consultants, outside of procedures, in the setting of respiratory failure requiring BiPAP. Orders Ordered: ED Orders 01/29/24 17:15 XR chest 1V Stat EKG-12 Lead Stat 01/29/24 17:20 CBC Auto Diff [Complete Blood Count AUTO DIFF] Stat CMP [Comprehensive Metabolic Panel] Stat Troponin I Stat 01/29/24 17:30 Covid-19 + FLU A/B + RSV - PCR Stat 01/29/24 18:05 Blood Culture Stat 01/29/24 18:09 VBG [Venous Blood Gas] Stat 01/29/24 18:58 CT angio chest PE protocol Stat Albuterol (Albuterol 2.5 Mg/3 Ml Neb (Adult)) 2.5 mg INH [id number] PRN PRN Reason: Shortness Of Breath Albuterol/Ipratropium (Albuterol/Ipratropium 3 Ml Ampul) 3 ml INH RTQ4HR PRN PRN Reason: Shortness Of Breath Last Admin: 01/29/24 17:47 Dose: 3 ml Documented By: DUNG Discontinued Medications Piperacillin Sod/Tazobactam (Sod 4.5 gm/ Sodium Chloride) 100 mls @ 200 mls/hr IV NOW ONE Stop: 01/29/24 17:21 Last Infusion: 01/29/24 18:22 Dose: Infused Documented By: Admin: 01/29/24 17:48 Dose: 200 mls/hr Documented By: DUNG Lorazepam (Lorazepam 2 Mg/Ml Inj) 1 mg IV NOW ONE Stop: 01/29/24 20:08 Last Admin: 01/29/24 20:10 Dose: 1 mg Documented By: TANA Methylprednisolone (Methylprednisolone 125 Mg/2 Ml Vial) 125 mg IV NOW ONE Stop: 01/29/24 17:21 Last Admin: 01/29/24 17:48 Dose: 125 mg Documented By: DUNG Midazolam HCl (Midazolam 2 Mg/2 Ml Vial) 2 mg IV NOW ONE Stop: 01/29/24 17:30 Last Admin: 01/29/24 19:05 Dose: Not Given Documented By: DUNG Vital Signs Vital signs: Vital Signs - 8 hr 01/29/24 17:15 01/29/24 17:18 01/29/24 17:18 Temperature Pulse Rate 114 H 109 H Respiratory Rate 38 H Blood Pressure 178/123 H Pulse Oximetry 97 95 Oxygen Delivery Method Nasal Cannula Nasal Cannula Nasal Cannula Oxygen Flow Rate 5 5 5 01/29/24 17:20 01/29/24 17:23 01/29/24 17:23 Temperature 99.5 F Pulse Rate 113 H 109 H Respiratory Rate 30 H 31 H Blood Pressure 178/123 H 160/73 H Pulse Oximetry 97 93 Oxygen Delivery Method Aerosol Mask Nasal Cannula Nasal Cannula Oxygen Flow Rate 5 5 01/29/24 17:30 01/29/24 17:31 01/29/24 17:31 Temperature Pulse Rate 107 H 102 H Respiratory Rate 31 H 36 H Blood Pressure 157/67 H Pulse Oximetry 96 94 Oxygen Delivery Method Nasal Cannula Nasal Cannula Oxygen Flow Rate 5 5 01/29/24 17:46 01/29/24 17:46 01/29/24 18:00 Temperature Pulse Rate 100 H 101 H Respiratory Rate 31 H 33 H Blood Pressure 129/58 L Pulse Oximetry 93 93 Oxygen Delivery Method Nasal Cannula Nasal Cannula Oxygen Flow Rate 5 5 01/29/24 18:11 01/29/24 18:11 01/29/24 18:15 Temperature Pulse Rate 100 H Respiratory Rate 27 H Blood Pressure 104/59 L 87/53 L Pulse Oximetry 91 Oxygen Delivery Method Nasal Cannula Oxygen Flow Rate 5 01/29/24 18:15 01/29/24 18:17 01/29/24 18:17 Temperature Pulse Rate 101 H 99 H Respiratory Rate 24 22 Blood Pressure 110/67 Pulse Oximetry 93 94 Oxygen Delivery Method Nasal Cannula Nasal Cannula Oxygen Flow Rate 5 5 01/29/24 18:30 01/29/24 18:30 01/29/24 18:41 Temperature Pulse Rate 99 H 107 H Respiratory Rate 24 20 Blood Pressure 110/62 Pulse Oximetry 94 93 Oxygen Delivery Method Nasal Cannula Nasal Cannula Oxygen Flow Rate 5 5 01/29/24 18:45 01/29/24 18:45 01/29/24 19:00 Temperature Pulse Rate 100 H 98 H Respiratory Rate 30 H 30 H Blood Pressure 111/63 Pulse Oximetry 94 94 Oxygen Delivery Method Nasal Cannula Nasal Cannula Oxygen Flow Rate 5 5 01/29/24 19:01 01/29/24 19:01 01/29/24 19:16 Temperature Pulse Rate 98 H Respiratory Rate 25 H Blood Pressure 111/72 116/63 Pulse Oximetry 94 Oxygen Delivery Method Nasal Cannula Oxygen Flow Rate 5 01/29/24 19:16 01/29/24 19:30 01/29/24 19:31 Temperature Pulse Rate 93 H 87 Respiratory Rate 20 30 H Blood Pressure 143/90 H Pulse Oximetry 93 91 Oxygen Delivery Method Nasal Cannula Nasal Cannula Oxygen Flow Rate 5 5 01/29/24 19:31 01/29/24 19:46 01/29/24 20:01 Temperature Pulse Rate 85 96 H Respiratory Rate 30 H 20 Blood Pressure 164/75 H Pulse Oximetry 91 92 Oxygen Delivery Method Nasal Cannula Nasal Cannula Oxygen Flow Rate 5 5 01/29/24 20:01 01/29/24 20:30 01/29/24 20:54 Temperature Pulse Rate 87 Respiratory Rate Blood Pressure 161/89 H 130/69 Pulse Oximetry 90 L Oxygen Delivery Method Oxygen Flow Rate 01/29/24 20:54 01/29/24 21:00 01/29/24 21:00 Temperature Pulse Rate 84 83 Respiratory Rate 0 L 34 H Blood Pressure 137/65 Pulse Oximetry 93 91 Oxygen Delivery Method Oxygen Flow Rate 01/29/24 21:15 01/29/24 21:15 01/29/24 21:30 Temperature Pulse Rate 81 Respiratory Rate 23 Blood Pressure 144/86 H 143/80 H Pulse Oximetry 92 Oxygen Delivery Method Oxygen Flow Rate 01/29/24 21:30 01/29/24 21:46 01/29/24 21:46 Temperature Pulse Rate 76 79 Respiratory Rate 11 L 24 Blood Pressure 152/76 H Pulse Oximetry 91 94 Oxygen Delivery Method Oxygen Flow Rate 01/29/24 21:59 01/29/24 22:00 01/29/24 22:00 Temperature Pulse Rate 61 85 Respiratory Rate 18 24 Blood Pressure 177/79 H Pulse Oximetry 94 90 L Oxygen Delivery Method Nasal Cannula Oxygen Flow Rate 5 01/29/24 22:16 01/29/24 22:16 01/29/24 22:30 Temperature Pulse Rate 88 Respiratory Rate 16 Blood Pressure 138/67 149/85 H Pulse Oximetry 94 Oxygen Delivery Method Nasal Cannula Oxygen Flow Rate 5 01/29/24 22:30 Temperature Pulse Rate 82 Respiratory Rate 20 Blood Pressure Pulse Oximetry Oxygen Delivery Method Oxygen Flow Rate <Miguel Angel Bland, DO - Last Filed: 01/29/24 23:14> Orders Ordered: ED Orders 01/29/24 17:15 XR chest 1V Stat EKG-12 Lead Stat 01/29/24 17:20 CBC Auto Diff [Complete Blood Count AUTO DIFF] Stat CMP [Comprehensive Metabolic Panel] Stat Troponin I Stat 01/29/24 17:30 Covid-19 + FLU A/B + RSV - PCR Stat 01/29/24 18:05 Blood Culture Stat 01/29/24 18:09 VBG [Venous Blood Gas] Stat 01/29/24 18:58 CT angio chest PE protocol Stat Albuterol (Albuterol 2.5 Mg/3 Ml Neb (Adult)) 2.5 mg INH [id number] PRN PRN Reason: Shortness Of Breath Albuterol/Ipratropium (Albuterol/Ipratropium 3 Ml Ampul) 3 ml INH RTQ4HR PRN PRN Reason: Shortness Of Breath Last Admin: 01/29/24 17:47 Dose: 3 ml Documented By: DUNG Discontinued Medications Piperacillin Sod/Tazobactam (Sod 4.5 gm/ Sodium Chloride) 100 mls @ 200 mls/hr IV NOW ONE Stop: 01/29/24 17:21 Last Infusion: 01/29/24 18:22 Dose: Infused Documented By: Admin: 01/29/24 17:48 Dose: 200 mls/hr Documented By: DUNG Lorazepam (Lorazepam 2 Mg/Ml Inj) 1 mg IV NOW ONE Stop: 01/29/24 20:08 Last Admin: 01/29/24 20:10 Dose: 1 mg Documented By: TANA Methylprednisolone (Methylprednisolone 125 Mg/2 Ml Vial) 125 mg IV NOW ONE Stop: 01/29/24 17:21 Last Admin: 01/29/24 17:48 Dose: 125 mg Documented By: DUNG Midazolam HCl (Midazolam 2 Mg/2 Ml Vial) 2 mg IV NOW ONE Stop: 01/29/24 17:30 Last Admin: 01/29/24 19:05 Dose: Not Given Documented By: DUNG Vital Signs Vital signs: Vital Signs - 8 hr 01/29/24 17:15 01/29/24 17:18 01/29/24 17:18 Temperature Pulse Rate 114 H 109 H Respiratory Rate 38 H Blood Pressure 178/123 H Pulse Oximetry 97 95 Oxygen Delivery Method Nasal Cannula Nasal Cannula Nasal Cannula Oxygen Flow Rate 5 5 5 01/29/24 17:20 01/29/24 17:23 01/29/24 17:23 Temperature 99.5 F Pulse Rate 113 H 109 H Respiratory Rate 30 H 31 H Blood Pressure 178/123 H 160/73 H Pulse Oximetry 97 93 Oxygen Delivery Method Aerosol Mask Nasal Cannula Nasal Cannula Oxygen Flow Rate 5 5 01/29/24 17:30 01/29/24 17:31 01/29/24 17:31 Temperature Pulse Rate 107 H 102 H Respiratory Rate 31 H 36 H Blood Pressure 157/67 H Pulse Oximetry 96 94 Oxygen Delivery Method Nasal Cannula Nasal Cannula Oxygen Flow Rate 5 5 01/29/24 17:46 01/29/24 17:46 01/29/24 18:00 Temperature Pulse Rate 100 H 101 H Respiratory Rate 31 H 33 H Blood Pressure 129/58 L Pulse Oximetry 93 93 Oxygen Delivery Method Nasal Cannula Nasal Cannula Oxygen Flow Rate 5 5 01/29/24 18:11 01/29/24 18:11 01/29/24 18:15 Temperature Pulse Rate 100 H Respiratory Rate 27 H Blood Pressure 104/59 L 87/53 L Pulse Oximetry 91 Oxygen Delivery Method Nasal Cannula Oxygen Flow Rate 5 01/29/24 18:15 01/29/24 18:17 01/29/24 18:17 Temperature Pulse Rate 101 H 99 H Respiratory Rate 24 22 Blood Pressure 110/67 Pulse Oximetry 93 94 Oxygen Delivery Method Nasal Cannula Nasal Cannula Oxygen Flow Rate 5 5 01/29/24 18:30 01/29/24 18:30 01/29/24 18:41 Temperature Pulse Rate 99 H 107 H Respiratory Rate 24 20 Blood Pressure 110/62 Pulse Oximetry 94 93 Oxygen Delivery Method Nasal Cannula Nasal Cannula Oxygen Flow Rate 5 5 01/29/24 18:45 01/29/24 18:45 01/29/24 19:00 Temperature Pulse Rate 100 H 98 H Respiratory Rate 30 H 30 H Blood Pressure 111/63 Pulse Oximetry 94 94 Oxygen Delivery Method Nasal Cannula Nasal Cannula Oxygen Flow Rate 5 5 01/29/24 19:01 01/29/24 19:01 01/29/24 19:16 Temperature Pulse Rate 98 H Respiratory Rate 25 H Blood Pressure 111/72 116/63 Pulse Oximetry 94 Oxygen Delivery Method Nasal Cannula Oxygen Flow Rate 5 01/29/24 19:16 01/29/24 19:30 01/29/24 19:31 Temperature Pulse Rate 93 H 87 Respiratory Rate 20 30 H Blood Pressure 143/90 H Pulse Oximetry 93 91 Oxygen Delivery Method Nasal Cannula Nasal Cannula Oxygen Flow Rate 5 5 01/29/24 19:31 01/29/24 19:46 01/29/24 20:01 Temperature Pulse Rate 85 96 H Respiratory Rate 30 H 20 Blood Pressure 164/75 H Pulse Oximetry 91 92 Oxygen Delivery Method Nasal Cannula Nasal Cannula Oxygen Flow Rate 5 5 01/29/24 20:01 01/29/24 20:30 01/29/24 20:54 Temperature Pulse Rate 87 Respiratory Rate Blood Pressure 161/89 H 130/69 Pulse Oximetry 90 L Oxygen Delivery Method Oxygen Flow Rate 01/29/24 20:54 01/29/24 21:00 01/29/24 21:00 Temperature Pulse Rate 84 83 Respiratory Rate 0 L 34 H Blood Pressure 137/65 Pulse Oximetry 93 91 Oxygen Delivery Method Oxygen Flow Rate 01/29/24 21:15 01/29/24 21:15 01/29/24 21:30 Temperature Pulse Rate 81 Respiratory Rate 23 Blood Pressure 144/86 H 143/80 H Pulse Oximetry 92 Oxygen Delivery Method Oxygen Flow Rate 01/29/24 21:30 01/29/24 21:46 01/29/24 21:46 Temperature Pulse Rate 76 79 Respiratory Rate 11 L 24 Blood Pressure 152/76 H Pulse Oximetry 91 94 Oxygen Delivery Method Oxygen Flow Rate 01/29/24 21:59 01/29/24 22:00 01/29/24 22:00 Temperature Pulse Rate 61 85 Respiratory Rate 18 24 Blood Pressure 177/79 H Pulse Oximetry 94 90 L Oxygen Delivery Method Nasal Cannula Oxygen Flow Rate 5 01/29/24 22:16 01/29/24 22:16 01/29/24 22:30 Temperature Pulse Rate 88 Respiratory Rate 16 Blood Pressure 138/67 149/85 H Pulse Oximetry 94 Oxygen Delivery Method Nasal Cannula Oxygen Flow Rate 5 01/29/24 22:30 Temperature Pulse Rate 82 Respiratory Rate 20 Blood Pressure Pulse Oximetry Oxygen Delivery Method Oxygen Flow Rate Medical Decision Making <Maxwell Mesa MD - Last Filed: 01/29/24 19:17> Lab Data 01/29/24 17:20 01/29/24 17:20 Labs: Lab Results 01/29/24 01/29/24 01/29/24 Range/Units 17:20 17:30 18:09 WBC 12.1 H (4.5-11.0) X10^3/uL RBC 4.91 (4.5-5.9) X10^6/uL Hgb 14.3 (13.5-17.5) g/dL Hct 43.2 (41-53) % MCV 88.1 (80-100) fL MCH 29.2 (26-34) PG MCHC 33.1 (30-36) % RDW 14.0 (11.6-14.8) % Plt Count 256 (150-400) X10^3/uL Neut % (Auto) 59.7 (50-75) % Lymph % (Auto) 15.7 L (25-40) % Barton % (Auto) 7.3 (3-14) % Eos % (Auto) 16.2 H (2-4) % Baso % (Auto) 1.1 (0-2) % Neut # (Auto) 7200 H (1993-5436) /uL Lymph # (Auto) 1900 (0316-7298) /uL Barton # (Auto) 900 (0-900) /uL Eos # (Auto) 2000 H (0-450) /uL Baso # (Auto) 100 (0-100) /uL VBG pH 7.38 (7.33-7.43) VBG pCO2 43.1 L (45-50) mmHg VBG pO2 44 (35-45) mmHg VBG HCO3 25 (24-28) mmol/L VBG Total CO2 27 (24-29) mmol/L VBG O2 Saturation 78 H (70-75) % VBG Base Excess 0.0 (0-4) mmol/L FiO2 32 Sodium 139 (137-145) mmol/L Potassium 4.0 (3.4-5.1) mmol/L Chloride 103 (98-107) mmol/L Carbon Dioxide 30 (22-32) mmol/L BUN 23 H (9-20) mg/dL Creatinine 0.97 (0.66-1.25) mg/dL Estimated GFR > 60 (>60) mL/min BUN/Creatinine Ratio 23.7 H (6-22) Glucose 107 (80-110) mg/dL Calcium 9.5 (8.4-10.2) mg/dL Total Bilirubin 0.6 (0.2-1.3) mg/dL AST 33 (17-59) IU/L ALT 39 (<50) IU/L Alkaline Phosphatase 90 (38-126) U/L Troponin I < 0.012 (0.01-0.034) ng/mL Total Protein 7.9 (6.3-8.2) g/dL Albumin 4.4 (3.5-5.0) g/dL Globulin 3.5 (1.7-4.1) g/dL Albumin/Globulin Ratio 1.3 (1.0-2.8) SARS-CoV-2 (PCR) Negative (Negative) Influenza A (RT-PCR) Flu a negative (NEGATIVE) Influenza B (RT-PCR) Flu b negative (NEGATIVE) RSV (PCR) Negative (Negative) <Miguel Angel Bland, - Last Filed: 01/29/24 23:14> Lab Data Labs: Lab Results 01/29/24 01/29/24 01/29/24 Range/Units 17:20 17:30 18:09 WBC 12.1 H (4.5-11.0) X10^3/uL RBC 4.91 (4.5-5.9) X10^6/uL Hgb 14.3 (13.5-17.5) g/dL Hct 43.2 (41-53) % MCV 88.1 (80-100) fL MCH 29.2 (26-34) PG MCHC 33.1 (30-36) % RDW 14.0 (11.6-14.8) % Plt Count 256 (150-400) X10^3/uL Neut % (Auto) 59.7 (50-75) % Lymph % (Auto) 15.7 L (25-40) % Barton % (Auto) 7.3 (3-14) % Eos % (Auto) 16.2 H (2-4) % Baso % (Auto) 1.1 (0-2) % Neut # (Auto) 7200 H (3634-6720) /uL Lymph # (Auto) 1900 (6324-0596) /uL Barton # (Auto) 900 (0-900) /uL Eos # (Auto) 2000 H (0-450) /uL Baso # (Auto) 100 (0-100) /uL VBG pH 7.38 (7.33-7.43) VBG pCO2 43.1 L (45-50) mmHg VBG pO2 44 (35-45) mmHg VBG HCO3 25 (24-28) mmol/L VBG Total CO2 27 (24-29) mmol/L VBG O2 Saturation 78 H (70-75) % VBG Base Excess 0.0 (0-4) mmol/L FiO2 32 Sodium 139 (137-145) mmol/L Potassium 4.0 (3.4-5.1) mmol/L Chloride 103 (98-107) mmol/L Carbon Dioxide 30 (22-32) mmol/L BUN 23 H (9-20) mg/dL Creatinine 0.97 (0.66-1.25) mg/dL Estimated GFR > 60 (>60) mL/min BUN/Creatinine Ratio 23.7 H (6-22) Glucose 107 (80-110) mg/dL Calcium 9.5 (8.4-10.2) mg/dL Total Bilirubin 0.6 (0.2-1.3) mg/dL AST 33 (17-59) IU/L ALT 39 (<50) IU/L Alkaline Phosphatase 90 (38-126) U/L Troponin I < 0.012 (0.01-0.034) ng/mL Total Protein 7.9 (6.3-8.2) g/dL Albumin 4.4 (3.5-5.0) g/dL Globulin 3.5 (1.7-4.1) g/dL Albumin/Globulin Ratio 1.3 (1.0-2.8) SARS-CoV-2 (PCR) Negative (Negative) Influenza A (RT-PCR) Flu a negative (NEGATIVE) Influenza B (RT-PCR) Flu b negative (NEGATIVE) RSV (PCR) Negative (Negative) Imaging Data CT scan - chest: Radiologist's Impression: PROCEDURE: CT ANGIO CHEST PE PROTOCOL INDICATIONS: rule out PE, PNA; possible COPD TECHNIQUE: After the administration of intravenous contrast, 2 mm thick sections acquired from the pulmonary apices to the posterior costophrenic angles. 3-dimensional maximum intensity projection (MIP) coronal and sagittal reformats were then acquired through the thorax. For radiation dose reduction, the following was used: automated exposure control, adjustment of mA and/or kV according to patient size. COMPARISON: None. FINDINGS: Image quality: Diagnostic. Pulmonary arteries: Pulmonary arteries are normal in size, and demonstrate no intraluminal filling defects to suggest central pulmonary embolism. Lower Neck: No enlarged lymph nodes. Thyroid: No thyroid nodules which require sonographic follow up, per consensus guidelines. Axillae: No enlarged lymph nodes. Chest Wall: Unremarkable. Bones: Subacute to chronic appearing right lateral 9th and 10th rib fractures are seen. Lungs and Pleura: No pneumothorax or pleural effusions. No consolidation or suspicious nodules. Heart: Heart size is normal. No pericardial effusion. Thoracic Vessels: No aortic aneurysm. 2 vessel coronary artery atherosclerotic calcifications are seen. Mediastinum and Rosa: No enlarged lymph nodes. Small lymph nodes are seen scattered in mediastinum measures up to 7 mm in size in right paratracheal space. Esophagus: No wall thickening. There is a small hiatal hernia. Upper Abdomen: Visualized upper abdomen solid organs and bowel loops appear normal. IMPRESSION: 1. No pulmonary embolus. 2. No focal infiltrate, pleural effusion or pneumothorax. 3. No mediastinal or hilar lymphadenopathy. 2 vessel coronary artery calcifications. 4. Subacute to chronic appearing right lateral 9th and 10th rib fractures MDM Narrative Medical decision making narrative: Dr bland: Received turned over. Review patient's history and physical. Patient is still requiring oxygen to maintain saturations greater than 90%. This is achieved by nasal cannula. CT scan of the chest shows no pulmonary embolism. Does not appear to be an infectious source. He was received antibiotics and steroids nebulizers. Given his need for oxygen does require admission to the hospital. Discussed the case with Dr. Dash hospitalist on-call who will admit for further evaluation and treatment. Discharge Plan Departure Patient Disposition: Admitted As Inpatient Clinical Impression: Respiratory failure, COPD (chronic obstructive pulmonary disease), Hypoxia Admit Date/Time: 01/29/24 22:39 Admit Provider: Luis Dash
[2024-01-29 17:30] LABS: Add Manual Diff / Slide Review NO; Basophils Absolute Auto 100 /uL (0-100); Basophils Percent Auto 1.1 % (0-2); Eosinophils Absolute Auto 2000 /uL (0-450); Eosinophils Percent Auto 16.2 % (2-4); Hematocrit 43.2 % (41-53); Hemoglobin 14.3 g/dL (13.5-17.5); Lymphocytes Absolute Auto 1900 /uL (1100-4500); Lymphocytes Percent Auto 15.7 % (25-40); Mean Corpuscular HGB Conc 33.1 % (30-36); Mean Corpuscular Hemoglobin 29.2 PG (26-34); Mean Corpuscular Volume 88.1 fL (80-100); Monocytes Absolute Auto 900 /uL (0-900); Monocytes Percent Auto 7.3 % (3-14); Neutrophils Absolute Auto 7200 /uL (1500-7000); Neutrophils Percent Auto 59.7 % (50-75); Platelet Count 256 X10^3/uL (150-400); Red Blood Cell Count 4.91 X10^6/uL (4.5-5.9); White Blood Cell Count 12.1 X10^3/uL (4.5-11.0)
[2024-01-29 17:47] LABS: Alanine Aminotransferase 39 IU/L (<50); Albumin 4.4 g/dL (3.5-5.0); Albumin Globulin Ratio 1.3 (1.0-2.8); Alkaline Phosphatase 90 U/L (38-126); Aspartate Aminotransferase 33 IU/L (17-59); BUN Creatinine Ratio 23.7 (6-22); Bilirubin Total 0.6 mg/dL (0.2-1.3); Blood Urea Nitrogen 23 mg/dL (9-20); Calcium 9.5 mg/dL (8.4-10.2); Carbon Dioxide 30 mmol/L (22-32); Chloride 103 mmol/L (98-107); Estimated Glomerular Filt Rate > 60 mL/min (>60); Globulin 3.5 g/dL (1.7-4.1); Glucose 107 mg/dL (80-110); HEMOLYSIS < 15 (0-50); Sodium 139 mmol/L (137-145); Total Protein 7.9 g/dL (6.3-8.2)
[2024-01-29] MEDS: ALBUTEROL/IPRATROPIUM 3 ML AMPUL INH (17:47)
[2024-01-29] MEDS: methylPREDNISolone 125 MG/2 ML VIAL IV (17:48)
[2024-01-29] MEDS: PIPERACILLIN/TAZO 4.5 GM in SODIUM CHLORIDE 0.9% 100 ML IV (17:48)
--- NOTE | 2024-01-29 17:56 | PC.NURSE ---
Addendum entered by Karina Lindquist R.N. 01/29/24 19:14: Pt on 5L O2 @ 94%. Physician and charge aware. Original Note: Patient reports he smokes street opioids regularly. Arrives EMS, SOB, bi-pap ordered and set up by RT. Pt refused to use/wear the bi-pap machine that the physician ordered. Physician aware. Breathing tx given by RT. Pt on 4L nasal cannula. ABX running and solumedrol given.
[2024-01-29 17:59] LABS: Troponin I < 0.012 ng/mL (0.01-0.034)
[2024-01-29 18:13] LABS: Influenza A - CEPHEID Flu A NEGATIVE (NEGATIVE); Influenza B - CEPHEID Flu B NEGATIVE (NEGATIVE); Respiratory Syncytial Virus Negative (Negative)
[2024-01-29 18:53] LABS: Fractionated Inspired Oxygen 32; HCO3 VBG 25 mmol/L (24-28); Oxygen Saturation VBG 78 % (70-75); PCO2 VBG 43.1 mmHg (45-50); PO2 VBG 44 mmHg (35-45); Total CO2 VBG 27 mmol/L (24-29); pH VBG 7.38 (7.33-7.43)
[2024-01-29 18:57] LABS: COVID-19 CEPHEID 4-PLEX PCR Negative (Negative)
--- NOTE | 2024-01-29 18:58 | DI.CT.S_ITS ---
PROCEDURE: CT ANGIO CHEST PE PROTOCOL INDICATIONS: rule out PE, PNA; possible COPD TECHNIQUE: After the administration of intravenous contrast, 2 mm thick sections acquired from the pulmonary apices to the posterior costophrenic angles. 3-dimensional maximum intensity projection (MIP) coronal and sagittal reformats were then acquired through the thorax. For radiation dose reduction, the following was used: automated exposure control, adjustment of mA and/or kV according to patient size. COMPARISON: None. FINDINGS: Image quality: Diagnostic. Pulmonary arteries: Pulmonary arteries are normal in size, and demonstrate no intraluminal filling defects to suggest central pulmonary embolism. Lower Neck: No enlarged lymph nodes. Thyroid: No thyroid nodules which require sonographic follow up, per consensus guidelines. Axillae: No enlarged lymph nodes. Chest Wall: Unremarkable. Bones: Subacute to chronic appearing right lateral 9th and 10th rib fractures are seen. Lungs and Pleura: No pneumothorax or pleural effusions. No consolidation or suspicious nodules. Heart: Heart size is normal. No pericardial effusion. Thoracic Vessels: No aortic aneurysm. 2 vessel coronary artery atherosclerotic calcifications are seen. Mediastinum and Rosa: No enlarged lymph nodes. Small lymph nodes are seen scattered in mediastinum measures up to 7 mm in size in right paratracheal space. Esophagus: No wall thickening. There is a small hiatal hernia. Upper Abdomen: Visualized upper abdomen solid organs and bowel loops appear normal. IMPRESSION: 1. No pulmonary embolus. 2. No focal infiltrate, pleural effusion or pneumothorax. 3. No mediastinal or hilar lymphadenopathy. 2 vessel coronary artery calcifications. 4. Subacute to chronic appearing right lateral 9th and 10th rib fractures. Dictated by: Kev Frausto M.D. on 01/29/2024 at 21:16 Approved by: Kev Frausto M.D. on 01/29/2024 at 21:24
[2024-01-29] MEDS: LORazepam 2 MG/ML INJ 1 MG IV (20:10)
[2024-01-30 04:01] VITALS: BP 178/88; PULSE 80; RESP 17; TEMP 36.6; O2SAT 96
--- NOTE | 2024-01-30 04:07 | P.HP_ITS ---
History of Present Illness History of Present Illness Date Patient Seen: 01/29/24 Time Patient Seen: 23:40 Chief complaint: SOB Narrative: 58 years old male with a past medical history of hypertension, diabetes, BPH, chronic hip pain smoking opiates and other medical issues presented emergency room for worsening shortness of breath with cough activities for the past 2 days. Not sure if she had fever but denies any chest pain palpitation dizziness. Does appear to be short of breath even while speaking with active wheezing. Noted to be hypoxic and EMS gave nebulizers with some relief but he had persistent shortness of breath. Denies any nausea vomiting or abdominal pain. Noted to be tachycardic and tachypneic in the ED with respirations in the 30s. Subsequent workup showed a white count of 12.1 with a hemoglobin of 14.3 VBG showed a pH of 7.38 with a pCO2 of 43.1. Sodium was 139. Influenza RSV and COVID was negative. CT angio was negative for pulm embolism and no acute infiltrate. Chronic appearing rib fractures noted on the ninth and 10th ribs right side. Patient was persistently hypoxemic needing 5 L of oxygen compared to no oxygen requirement at his baseline. He was admitted for further evaluation [facility] Medical History (Updated 01/29/24 @ 22:39 by Miguel Angel Bland DO) Nocturia Diabetes Obesity BPH w urinary obs/LUTS Hypertension GERD (gastroesophageal reflux disease) Surgical History History of lumbar discectomy History of tonsillectomy History of carpal tunnel surgery History of knee replacement Social History marital status: household members: family occupational status: employed Smoking Status: Never smoker alcohol intake: never caffeine: Yes Meds Home Medications and Allergies Home Medications Medication Instructions Recorded Confirmed Type testosterone 50 mg/5 gram (1 %) 1 packet transdermal DAILY 12/12/20 01/29/24 History transdermal gel metformin 500 mg tablet,extended 500 mg PO DAILY 11/15/23 01/29/24 History release 24 hr exenatide microspheres 2 mg/0.85 2 mg SUBCUT QWEEK 01/29/24 01/29/24 History mL subcutaneous auto-injector ([employer] olmesartan 20 mg tablet 20 mg PO DAILY 01/29/24 01/29/24 History Allergies Allergy/AdvReac Type Severity Reaction Status Date / Time No Known Drug Allergies Allergy Verified 01/29/24 17:27 Review of Systems Review of Systems Narrative: 12 point review of system is negative unless otherwise stated in the history of present illness Exam Vital Signs (past 8 hours): - 01/29/24 20:30 01/29/24 20:54 01/29/24 20:54 Temperature Pulse Rate 87 84 Respiratory Rate 0 L Blood Pressure 130/69 Pulse Oximetry 90 L 93 Oxygen Delivery Method Oxygen Flow Rate 01/29/24 21:00 01/29/24 21:00 01/29/24 21:15 Temperature Pulse Rate 83 Respiratory Rate 34 H Blood Pressure 137/65 144/86 H Pulse Oximetry 91 Oxygen Delivery Method Oxygen Flow Rate 01/29/24 21:15 01/29/24 21:30 01/29/24 21:30 Temperature Pulse Rate 81 76 Respiratory Rate 23 11 L Blood Pressure 143/80 H Pulse Oximetry 92 91 Oxygen Delivery Method Oxygen Flow Rate 01/29/24 21:46 01/29/24 21:46 01/29/24 21:59 Temperature Pulse Rate 79 61 Respiratory Rate 24 18 Blood Pressure 152/76 H Pulse Oximetry 94 94 Oxygen Delivery Method Oxygen Flow Rate 01/29/24 22:00 01/29/24 22:00 01/29/24 22:16 Temperature Pulse Rate 85 Respiratory Rate 24 Blood Pressure 177/79 H 138/67 Pulse Oximetry 90 L Oxygen Delivery Method Nasal Cannula Oxygen Flow Rate 5 01/29/24 22:16 01/29/24 22:30 01/29/24 22:30 Temperature Pulse Rate 88 82 Respiratory Rate 16 20 Blood Pressure 149/85 H Pulse Oximetry 94 Oxygen Delivery Method Nasal Cannula Oxygen Flow Rate 5 01/29/24 22:51 01/29/24 22:51 01/30/24 00:00 Temperature 96.2 F L Pulse Rate 99 H 66 Respiratory Rate 22 17 Blood Pressure 151/82 H 131/79 Pulse Oximetry 93 95 Oxygen Delivery Method Nasal Cannula Nasal Cannula Oxygen Flow Rate 5 5 Oxygen Delivery Method Nasal Cannula Oxygen Flow Rate 5 Narrative Exam Narrative: Patient appears to be short of breath. Air entry decreased bilaterally at the midlung region and at the base Objective Labs 01/29/24 17:20 01/29/24 17:20 Labs: Laboratory Results - last 24 hr 01/29/24 01/29/24 01/29/24 17:20 17:30 18:09 WBC 12.1 H RBC 4.91 Hgb 14.3 Hct 43.2 MCV 88.1 MCH 29.2 MCHC 33.1 RDW 14.0 Plt Count 256 Neut % (Auto) 59.7 Lymph % (Auto) 15.7 L [place] % (Auto) 7.3 Eos % (Auto) 16.2 H Baso % (Auto) 1.1 Neut # (Auto) 7200 H Lymph # (Auto) 1900 [place] # (Auto) 900 Eos # (Auto) 2000 H Baso # (Auto) 100 VBG pH 7.38 VBG pCO2 43.1 L VBG pO2 44 VBG HCO3 25 VBG Total CO2 27 VBG O2 Saturation 78 H VBG Base Excess 0.0 FiO2 32 Sodium 139 Potassium 4.0 Chloride 103 Carbon Dioxide 30 BUN 23 H Creatinine 0.97 Estimated GFR > 60 BUN/Creatinine Ratio 23.7 H Glucose 107 Calcium 9.5 Total Bilirubin 0.6 AST 33 ALT 39 Alkaline Phosphatase 90 Troponin I < 0.012 Total Protein 7.9 Albumin 4.4 Globulin 3.5 Albumin/Globulin Ratio 1.3 SARS-CoV-2 (PCR) Negative Influenza A (RT-PCR) Flu a negative Influenza B (RT-PCR) Flu b negative RSV (PCR) Negative Assessment & Plan Assessment & Plan narrative: 58 years old male with a past medical history of hypertension, diabetes, BPH, chronic hip pain smoking opiates and other medical issues presented emergency room for worsening shortness of breath with cough activities for the past 2 days. Not sure if she had fever but denies any chest pain palpitation dizziness. Does appear to be short of breath even while speaking with active wheezing. Noted to be hypoxic and EMS gave nebulizers with some relief but he had persistent shortness of breath. Denies any nausea vomiting or abdominal pain. Noted to be tachycardic and tachypneic in the ED with respirations in the 30s. Subsequent workup showed a white count of 12.1 with a hemoglobin of 14.3 VBG showed a pH of 7.38 with a pCO2 of 43.1. Sodium was 139. Influenza RSV and COVID was negative. CT angio was negative for pulm embolism and no acute infiltrate. Chronic appearing rib fractures noted on the ninth and 10th ribs right side. Patient was persistently hypoxemic needing 5 L of oxygen compared to no oxygen requirement at his baseline. He was admitted for further evaluation 1. Acute hypoxemic respiratory failure likely secondary to acute COPD exacerbation with chronic smoking. Maintain the oxygen supplementation to keep the O2 saturation above 89% with nebulizers and IV Solu-Medrol. Advised to quit smoking and trend closely. Did receive a dose of IV Zosyn in the ED but will hold off on further IV antibiotics for now. Trend closely 2 diabetes mellitus type 2. Watch the blood sugar ACHS with insulin sliding scale. Hold metformin for the next 24 hours given the recent use of contrast 3 hypertension resume the home olmesartan and watch the blood pressure closely 4 GI prophylaxis will be with Protonix 5 DVT prophylaxis will be with Lovenox 6 chronic smoker of opiates. Advised to quit smoking. Declined patch for now since not smoking nicotine at this time Patient is a full code for now Patient will be admitted under inpatient status. Given the concern for acute hypoxemic respiratory failure in the setting of acute COPD exacerbation needing IV steroids/oxygen supplementation, patient meets criteria for inpatient with expected length of stay greater than 2 midnights
[2024-01-30 05:08] LABS: Add Manual Diff / Slide Review NO; Basophils Absolute Auto 100 /uL (0-100); Basophils Percent Auto 0.9 % (0-2); Eosinophils Absolute Auto 0 /uL (0-450); Eosinophils Percent Auto 0.1 % (2-4); Hematocrit 42.3 % (41-53); Hemoglobin 14.1 g/dL (13.5-17.5); Lymphocytes Absolute Auto 500 /uL (1100-4500); Lymphocytes Percent Auto 6.3 % (25-40); Mean Corpuscular HGB Conc 33.4 % (30-36); Mean Corpuscular Hemoglobin 29.2 PG (26-34); Mean Corpuscular Volume 87.4 fL (80-100); Monocytes Absolute Auto 300 /uL (0-900); Monocytes Percent Auto 3.6 % (3-14); Neutrophils Absolute Auto 6700 /uL (1500-7000); Neutrophils Percent Auto 89.1 % (50-75); Platelet Count 226 X10^3/uL (150-400); Red Blood Cell Count 4.84 X10^6/uL (4.5-5.9); Red Cell Distribution Width 13.9 % (11.6-14.8); White Blood Cell Count 7.5 X10^3/uL (4.5-11.0)
[2024-01-30 05:23] LABS: Lactate (Lactic Acid) 1.9 mmol/L (0.7-2.1)
[2024-01-30 05:24] LABS: Alanine Aminotransferase 36 IU/L (<50); Albumin 4.1 g/dL (3.5-5.0); Albumin Globulin Ratio 1.3 (1.0-2.8); Alkaline Phosphatase 76 U/L (38-126); Aspartate Aminotransferase 28 IU/L (17-59); BUN Creatinine Ratio 30.3 (6-22); Bilirubin Total 0.4 mg/dL (0.2-1.3); Blood Urea Nitrogen 23 mg/dL (9-20); Calcium 9.8 mg/dL (8.4-10.2); Carbon Dioxide 29 mmol/L (22-32); Chloride 103 mmol/L (98-107); Estimated Glomerular Filt Rate > 60 mL/min (>60); Globulin 3.1 g/dL (1.7-4.1); Glucose 171 mg/dL (80-110); HEMOLYSIS < 15 (0-50); Magnesium 1.9 mg/dL (1.6-2.3); Phosphorous 3.4 mg/dL (2.3-3.7); Potassium 4.9 mmol/L (3.4-5.1); Sodium 139 mmol/L (137-145); Total Protein 7.2 g/dL (6.3-8.2)
[2024-01-30 05:33] LABS: NT-proBNP (BNP-Adult 18+) 64 pg/mL (<125)
[2024-01-30 05:35] LABS: Troponin I < 0.012 ng/mL (0.01-0.034)
[2024-01-30 05:55] LABS: TSH w/ Reflex to FT4 0.44 uIU/mL (0.47-4.68)
[2024-01-30] MEDS: PANTOPRAZOLE DR 40 MG TABLET PO (06:12)
--- NOTE | 2024-01-30 06:35 | PC.NURSE ---
Pt admitted with shortness of breath, wheezing throughout, unable to ambulate to the bathroom. Using the bedside commode to stand and urinate. Pt on 5 L NC, pt states he smokes Opiates, when this nurse asked him to clarify he said I smoke opium not fentanyl. Pt is hoping to go home today, this nurse tried to explain to pt that it would not be in his interest to go home when he is still using oxygen and short of breath with any activity.
[2024-01-30 06:56] LABS: Free T4, Direct Thyroxine 1.26 ng/dL (0.78-2.19)
--- NOTE | 2024-01-30 07:23 | PM.PN.1 ---
Exam Vital Signs (past 8 hours): - 01/30/24 00:00 01/30/24 04:01 Temperature 97.8 F Pulse Rate 80 Respiratory Rate 17 Blood Pressure 178/88 H Pulse Oximetry 96 Oxygen Delivery Method Nasal Cannula Oxygen Flow Rate 5 Oxygen Delivery Method Nasal Cannula Oxygen Flow Rate 5 Narrative Exam Narrative: GEN: no acute distress HEENT: moist mucous membranes, PERRL NECK: trachea midline, no JVD CV: regular rate and rhythm, no murmurs PULM: clear bilaterally ABD: soft, nontender, nondistended, no organomegaly EXT: warm and well perfused with no edema NEURO: awake, alert, oriented, no focal deficits Objective Labs 01/30/24 04:45 01/30/24 04:45 Labs: Laboratory Results - last 24 hr 01/29/24 01/29/24 01/29/24 17:20 17:30 18:09 WBC 12.1 H RBC 4.91 Hgb 14.3 Hct 43.2 MCV 88.1 MCH 29.2 MCHC 33.1 RDW 14.0 Plt Count 256 Neut % (Auto) 59.7 Lymph % (Auto) 15.7 L [place] % (Auto) 7.3 Eos % (Auto) 16.2 H Baso % (Auto) 1.1 Neut # (Auto) 7200 H Lymph # (Auto) 1900 [place] # (Auto) 900 Eos # (Auto) 2000 H Baso # (Auto) 100 VBG pH 7.38 VBG pCO2 43.1 L VBG pO2 44 VBG HCO3 25 VBG Total CO2 27 VBG O2 Saturation 78 H VBG Base Excess 0.0 FiO2 32 Sodium 139 Potassium 4.0 Chloride 103 Carbon Dioxide 30 BUN 23 H Creatinine 0.97 Estimated GFR > 60 BUN/Creatinine Ratio 23.7 H Glucose 107 Hemoglobin A1c Lactate Calcium 9.5 Phosphorus Magnesium Total Bilirubin 0.6 AST 33 ALT 39 Alkaline Phosphatase 90 Troponin I < 0.012 NT-Pro-B Natriuret Pep Total Protein 7.9 Albumin 4.4 Globulin 3.5 Albumin/Globulin Ratio 1.3 TSH Free T4 SARS-CoV-2 (PCR) Negative Influenza A (RT-PCR) Flu a negative Influenza B (RT-PCR) Flu b negative RSV (PCR) Negative 01/30/24 04:45 WBC 7.5 RBC 4.84 Hgb 14.1 Hct 42.3 MCV 87.4 MCH 29.2 MCHC 33.4 RDW 13.9 Plt Count 226 Neut % (Auto) 89.1 H D Lymph % (Auto) 6.3 L [place] % (Auto) 3.6 Eos % (Auto) 0.1 L Baso % (Auto) 0.9 Neut # (Auto) 6700 Lymph # (Auto) 500 L [place] # (Auto) 300 Eos # (Auto) 0 Baso # (Auto) 100 VBG pH VBG pCO2 VBG pO2 VBG HCO3 VBG Total CO2 VBG O2 Saturation VBG Base Excess FiO2 Sodium 139 Potassium 4.9 Chloride 103 Carbon Dioxide 29 BUN 23 H Creatinine 0.76 Estimated GFR > 60 BUN/Creatinine Ratio 30.3 H Glucose 171 H Hemoglobin A1c 6.0 Lactate 1.9 Calcium 9.8 Phosphorus 3.4 Magnesium 1.9 Total Bilirubin 0.4 AST 28 ALT 36 Alkaline Phosphatase 76 Troponin I < 0.012 NT-Pro-B Natriuret Pep 64 Total Protein 7.2 Albumin 4.1 Globulin 3.1 Albumin/Globulin Ratio 1.3 TSH 0.44 L Free T4 1.26 SARS-CoV-2 (PCR) Influenza A (RT-PCR) Influenza B (RT-PCR) RSV (PCR) [facility] Medical History (Updated 01/29/24 @ 22:39 by Miguel Angel Bland DO) Nocturia Diabetes Obesity BPH w urinary obs/LUTS Hypertension GERD (gastroesophageal reflux disease) Surgical History History of lumbar discectomy History of tonsillectomy History of carpal tunnel surgery History of knee replacement Social History marital status: household members: family occupational status: employed Smoking Status: Never smoker alcohol intake: never caffeine: Yes Assessment & Plan Assessment & Plan narrative: 1. Acute hypoxemic respiratory failure likely secondary to acute COPD exacerbation with chronic smoking. Maintain the oxygen supplementation to keep the O2 saturation above 89% with nebulizers and IV Solu-Medrol. Advised to quit smoking and trend closely. Did receive a dose of IV Zosyn in the ED but will hold off on further IV antibiotics for now. Trend closely 2 diabetes mellitus type 2. Watch the blood sugar ACHS with insulin sliding scale. Hold metformin for the next 24 hours given the recent use of contrast 3 hypertension resume the home olmesartan and watch the blood pressure closely 4 GI prophylaxis will be with Protonix 5 DVT prophylaxis will be with Lovenox 6 chronic smoker of opiates. Advised to quit smoking. Declined patch for now since not smoking nicotine at this time Patient is a full code
[2024-01-30 08:00] VITALS: BP 118/95; PULSE 64; RESP 18; TEMP 36.4; O2SAT 93
[2024-01-30 08:50] VITALS: BP 118/95; PULSE 64
[2024-01-30] MEDS: LOSARTAN 50 MG TABLET PO (08:50)
[2024-01-30] MEDS: ENOXAPARIN 40 MG/0.4 ML SYRINGE SUBCUT (08:52)
[2024-01-30] MEDS: SODIUM CHLORIDE 0.9% FLUSH 10 ML IV (08:53)
[2024-01-30] MEDS: BUDESONIDE 0.5 MG/2 ML NEB INH (09:09)
[2024-01-30] MEDS: ALBUTEROL 2.5 MG/3 ML NEB (ADULT) INH (09:09)
[2024-01-30 09:12] VITALS: O2SAT 92
--- NOTE | 2024-01-30 09:40 | P.DS_ITS ---
History of Present Illness History of Present Illness Chief complaint: SOB Narrative: 58 years old male with a past medical history of hypertension, diabetes, BPH, chronic hip pain smoking opiates and other medical issues presented emergency room for worsening shortness of breath with cough activities for the past 2 days. Not sure if she had fever but denies any chest pain palpitation dizziness. Does appear to be short of breath even while speaking with active wheezing. Noted to be hypoxic and EMS gave nebulizers with some relief but he had persistent shortness of breath. Denies any nausea vomiting or abdominal pain. Noted to be tachycardic and tachypneic in the ED with respirations in the 30s. Subsequent workup showed a white count of 12.1 with a hemoglobin of 14.3 VBG showed a pH of 7.38 with a pCO2 of 43.1. Sodium was 139. Influenza RSV and COVID was negative. CT angio was negative for pulm embolism and no acute infiltrate. Chronic appearing rib fractures noted on the ninth and 10th ribs right side. Patient was persistently hypoxemic needing 5 L of oxygen compared to no oxygen requirement at his baseline. He was admitted for further evaluation Discharge Providers Provider Date of admission: 01/29/24 22:39 Discharge Date: 01/30/24 Primary care physician: LIAM Darling- Consults: 01/29/24 23:31 Consult to [employer] Person Routine Comment: using opiates to help with pain management Discharge provider: Sarath Fernández DO Summary Hospital Course Discharge Diagnosis: 1. Acute hypoxemic respiratory failure likely secondary to acute COPD vs ashtma exacerbation. 2. diabetes mellitus type 2. A1c 6%. 3. hypertension. Continue olmesartan. 4. Morbid obesity. BMI 41. Hospital Course: Patient admitted for hypoxia, shortness of breath and wheezing due to likely asthma versus COPD exacerbation. However he denies any history of cigarette use making COPD less likely. He IV Solu-Medrol, nebulizer treatments and was weaned off oxygen to room air. He was sent home on 40 mg prednisone x5 days, albuterol inhaler and Singulair nightly. He will follow up with PCP PFT testing and pulmonology referral. Exam Vital Signs (past 8 hours): - 01/30/24 04:01 01/30/24 07:11 01/30/24 08:00 Temperature 97.8 F 97.5 F L Pulse Rate 80 64 Respiratory Rate 17 18 Blood Pressure 178/88 H 118/95 H Pulse Oximetry 96 93 Oxygen Delivery Method Nasal Cannula Oxygen Flow Rate 5 5 5 Fraction of Inspired Oxygen 40 01/30/24 08:50 01/30/24 09:12 Temperature Pulse Rate 64 Respiratory Rate Blood Pressure 118/95 H Pulse Oximetry 92 Oxygen Delivery Method Room Air Oxygen Flow Rate Fraction of Inspired Oxygen Fraction of Inspired Oxygen 40 Oxygen Delivery Method Room Air Oxygen Flow Rate 5 Narrative Exam Narrative: GEN: no acute distress, obese HEENT: moist mucous membranes, PERRL NECK: trachea midline, no JVD CV: regular rate and rhythm, no murmurs PULM: Diffuse expiratory wheezes ABD: soft, nontender, nondistended, no organomegaly EXT: warm and well perfused with no edema NEURO: awake, alert, oriented, no focal deficits Objective Labs 01/30/24 04:45 01/30/24 04:45 Labs: Laboratory Results - last 24 hr 01/29/24 01/29/24 01/29/24 17:20 17:30 18:09 WBC 12.1 H RBC 4.91 Hgb 14.3 Hct 43.2 MCV 88.1 MCH 29.2 MCHC 33.1 RDW 14.0 Plt Count 256 Neut % (Auto) 59.7 Lymph % (Auto) 15.7 L [place] % (Auto) 7.3 Eos % (Auto) 16.2 H Baso % (Auto) 1.1 Neut # (Auto) 7200 H Lymph # (Auto) 1900 [place] # (Auto) 900 Eos # (Auto) 2000 H Baso # (Auto) 100 VBG pH 7.38 VBG pCO2 43.1 L VBG pO2 44 VBG HCO3 25 VBG Total CO2 27 VBG O2 Saturation 78 H VBG Base Excess 0.0 FiO2 32 Sodium 139 Potassium 4.0 Chloride 103 Carbon Dioxide 30 BUN 23 H Creatinine 0.97 Estimated GFR > 60 BUN/Creatinine Ratio 23.7 H Glucose 107 Hemoglobin A1c Lactate Calcium 9.5 Phosphorus Magnesium Total Bilirubin 0.6 AST 33 ALT 39 Alkaline Phosphatase 90 Troponin I < 0.012 NT-Pro-B Natriuret Pep Total Protein 7.9 Albumin 4.4 Globulin 3.5 Albumin/Globulin Ratio 1.3 TSH Free T4 SARS-CoV-2 (PCR) Negative Influenza A (RT-PCR) Flu a negative Influenza B (RT-PCR) Flu b negative RSV (PCR) Negative 01/30/24 04:45 WBC 7.5 RBC 4.84 Hgb 14.1 Hct 42.3 MCV 87.4 MCH 29.2 MCHC 33.4 RDW 13.9 Plt Count 226 Neut % (Auto) 89.1 H D Lymph % (Auto) 6.3 L [place] % (Auto) 3.6 Eos % (Auto) 0.1 L Baso % (Auto) 0.9 Neut # (Auto) 6700 Lymph # (Auto) 500 L [place] # (Auto) 300 Eos # (Auto) 0 Baso # (Auto) 100 VBG pH VBG pCO2 VBG pO2 VBG HCO3 VBG Total CO2 VBG O2 Saturation VBG Base Excess FiO2 Sodium 139 Potassium 4.9 Chloride 103 Carbon Dioxide 29 BUN 23 H Creatinine 0.76 Estimated GFR > 60 BUN/Creatinine Ratio 30.3 H Glucose 171 H Hemoglobin A1c 6.0 Lactate 1.9 Calcium 9.8 Phosphorus 3.4 Magnesium 1.9 Total Bilirubin 0.4 AST 28 ALT 36 Alkaline Phosphatase 76 Troponin I < 0.012 NT-Pro-B Natriuret Pep 64 Total Protein 7.2 Albumin 4.1 Globulin 3.1 Albumin/Globulin Ratio 1.3 TSH 0.44 L Free T4 1.26 SARS-CoV-2 (PCR) Influenza A (RT-PCR) Influenza B (RT-PCR) RSV (PCR) [facility] Medical History (Updated 01/29/24 @ 22:39 by Miguel Angel Bland DO) Nocturia Diabetes Obesity BPH w urinary obs/LUTS Hypertension GERD (gastroesophageal reflux disease) Surgical History History of lumbar discectomy History of tonsillectomy History of carpal tunnel surgery History of knee replacement Social History marital status: household members: family occupational status: employed Smoking Status: Never smoker alcohol intake: never caffeine: Yes Discharge Plan Discharge Plan Patient Disposition: Home Provider Discharge Comment: You were admitted for likely asthma exacerbation. This improved with steroids and nebulizer treatments. I've sent prednisone, an inhaler and a pill at night to help with asthma. Please see your PCP for a PFT test to confirm asthma and pulmonology referral. Discharge orders & Medications Prescriptions: New prednisone 20 mg tablet 40 mg PO DAILY 5 Days Qty: 10 0RF albuterol sulfate 90 mcg/actuation HFA aerosol inhaler 1 inh inhalation QID PRN (Reason: shortness of breath or wheezing) Qty: 8.5 0RF montelukast [Singulair] 10 mg tablet 10 mg PO BEDTIME Qty: 30 0RF Continued testosterone 50 mg/5 gram (1 %) gel 1 packet transdermal DAILY olmesartan 20 mg tablet 20 mg PO DAILY Bydureon BCise 2 mg/0.85 mL auto-injector 2 mg SUBCUT QWEEK metformin 500 mg tablet extended release 24 hr 500 mg PO DAILY Follow up/Referrals: Ann Campbell FNP-BC [Primary Care Provider] - 1 Week Visit Report/Discharge Packet Stand Alone Forms: Patient Portal/API, Stroke Signs & Symptoms Discharge Data Primary Care Provider: Ann Campbell
--- NOTE | 2024-01-30 10:23 | CM.DANOTE ---
Patient is a 58 yo male who was admitted on 01/29/24 for SOB. Pt has [employer] for insurance and his PCP is Paola Garcia at [facility]. EMR was reviewed. Per MD, pt with hx of diabetes and chronic back and hip pain and admits to self medicating with smoking opium. Pt admitted for Respiratory Failure secondary to COPD exac and on 5LO2. Per RT, pt non compliant with oxygen but was able to tolerate room air and given breathing treatment which helped to improve his wheezing. SW met bedside with pt and explained role and pt confirms he lives in [place] with his mom and family and works at [employer] at baseline and is independent with ADLs. Pt stating that he wants to discharge today and inquired about AMA pwk. Pt willing to stay to discuss medical recommendations from MD. SW updated MD who met bedside with pt and willing to discharge pt with outpt meds and recommendations and pt appreciative. SW met bedside with pt again and he confirms his preference is to discharge home today and states he has family that can transport him at any time, could arrive within five minutes of him calling them. SW provided MAT [facility]ESS resources to review for medication assisted tx to get off Opium and pt confirms that he has a long hx of chronic pain and has been established with a Pain Clinic in the past with success for his back but then states the Opioid Crisis hit and he found many barriers to getting his pain needs met. Pt then also developed hip pain and also attempted Opiate Assisted Tx without success of adequately managing his pain needs. Pt states he has used the same dealer for years for my Opium, he is very reliable and safe and a secure source and pt states he plans to continue self medicating at this time as it has been meeting his chronic pain needs. Pt declines any other resourced at this time. RN updated and will get pt's discharge instructions ready to present to the patient for discharge this morning. Plan: Patient to d/c home today with new Rx and outpt f/u and pt declines any further resources at this time and no further SW needs. ALBIN Irwin Discharge Planning/Care Management CM Discharge Assessment Start: 01/30/24 09:30 Freq: Status: Active Protocol: Document 01/30/24 09:30 BF (Rec: 01/30/24 09:38 BF [id number]) Discharge Planning Assessment Assigned Orthopedic Assistant ALBIN Prasad DPOA/Assigned Designee Name informally mother Chloe Contact Information [phone] Advance Directives? No Advance Directives on File No History Provided By Patient,Medical Record Has Patient been admitted in last 30 No days? Prior Living Arrangements House Household Members family Comment Lives with mother Type of transporation used prior to Drives own vehicle admit Independent with ADL's Yes Is patient alert and oriented? Yes Caregiver for Another No Barriers to Discharge Yes Comment Considering leaving AMA, opiate abuse at baseline Discharge Plan Drug Rehabilitation Transportation Arrangement Pt has been on the phone with his mom, she can likely transport Referrals Initiated Other Additional Comment Pt could benefit from NESS resources but likely will decline resources Whiteboard Updated in Patient Room with Yes name and ext. # of Orthopedic Assistant Review Status In Process Please Provide Date Initial DC 01/30/24 Assessment Was Performed Next Review Type Continued Stay Review
--- NOTE | 2024-01-30 10:36 | PC.NURSE ---
Patient is A&OX4, VSS, afebrile. He takes his 02 off this a.m. and on RA is 89-90% berfore neb treatment. He tolerates breakfast well and calls for assistance appropriately. Noted expiratory wheezes and chest congestion as well as SOB with exertion and activity intolerance. He continues to repeat that he is going home today. MD evaluated and discussed plan of care with patient and clears him to discharge home today. He verbalizes understanding of medications, and follow up recommendations. He is escorted by [employer] to private vehicle with a friend for discharge at 1030 a.m.
== END 2024-01-30 10:30 | disposition home or self-care (01) ==
LOC: ED 22:39 → AC 01-30 07:38
PROVIDERS: Emergency Medicine; Admitting Provider Internal Medicine; Emergency Provider Emergency Medicine; Family Provider Nurse Practitioner Family; PCP Nurse Practitioner Family; Referring Provider Emergency Medicine; Visit Provider Internal Medicine
DX: J96.01 Acute respiratory failure with hypoxia (principal); J44.1 Chronic obstructive pulmonary disease with (acute) exacerbation; E11.9 Type 2 diabetes mellitus without complications; I10 Essential (primary) hypertension; E66.01 Morbid (severe) obesity due to excess calories; Z68.41 Body mass index [BMI] 40.0-44.9, adult; F11.10 Opioid abuse, uncomplicated; Z79.84 Long term (current) use of oral hypoglycemic drugs; Z11.52 Encounter for screening for COVID-19
CPT/HCPCS: 0241U; 36415; 71045; 71275; 80053; 82805; 82962; 83036; 83605; 83735; 83880; 84100; 84439; 84443; 84484; 85025; 87040; 93005; 93010; 94640; 96365; 96372; 96375; 96376; 99285; G0378; J1650; J1815; J2060; J2543; J2919; J7613; Q9967

== ENCOUNTER → 2024-02-23 10:30 | Outpatient (CLI) | payer OTHER, MEDICAID, SELFPAY ==
[2024-01-29 23:16] VITALS: BMI 41.3
== END ==
PROVIDERS: Family Provider Nurse Practitioner Family; PCP Registered Nurse; Referring Provider Internal Medicine Critical Care Medicine; Visit Provider Internal Medicine Critical Care Medicine
DX: R06.02 Shortness of breath (principal); J98.8 Other specified respiratory disorders
CPT/HCPCS: 94060; 94726; 94729

== ENCOUNTER 2024-05-03 08:47 | Day surgery (SDC) | payer OTHER, MEDICAID, SELFPAY ==
[2024-01-29 23:16] VITALS: BMI 41.3
[2024-04-25 09:29] VITALS: BMI 39.3
[2024-05-03] VITALS (12 sets, daily range): BP systolic 94–136; BP diastolic 55–92; PULSE 55–91; RESP 12–26; TEMP 36.1–36.8; O2SAT 93–99; BMI 39.4; BMI 40.8
--- NOTE | 2024-05-03 | DI.RAD.S_ITS ---
PROCEDURE: XR PELVIS 1-2V INDICATIONS: intra op right hip TECHNIQUE: Intra-operative view of the pelvis and hip acquired. COMPARISON: None. FINDINGS: Bones: Intraoperative devices prior to placement of arthroplasty prostheses are in expected positions. No fractures or suspicious bony lesions. Soft tissues: Overlying surgical retractors are present, along with other intraoperative changes. IMPRESSION: Intraoperative support for right total hip arthroplasty. Please see separate procedure note for further details. Dictated by: Ashutosh Mcguire M.D. on 05/03/2024 at 15:22 Approved by: Ashutosh Mcguire M.D. on 05/03/2024 at 15:22
[2024-05-03] MEDS: LACTATED RINGERS 1,000 ML 42 ML IV ×2 (09:21→12:19)
[2024-05-03] MEDS: ACETAMINOPHEN 325 MG TABLET 975 MG PO (09:21)
[2024-05-03] MEDS: VANCOMYCIN 1,000 MG/200 ML PIGGYBACK 200 MG IV ×2 (09:52→10:55)
--- NOTE | 2024-05-03 09:52 | DI.RAD.S_ITS ---
PROCEDURE: XR HIP W PEL IF DONE RT 2V INDICATIONS: zeny right TECHNIQUE: AP pelvis and lateral view of the hip acquired. COMPARISON: [facility], CR, XR HIP W PEL IF DONE RT 2V, 01/05/2023, 11:57. FINDINGS: Bones: Patient is status post right hip arthroplasty, with hardware components in expected positions. The hip joint appears congruent. The visualized bony structures appear intact. Soft tissues: Overlying postoperative changes are noted. No suspicious soft tissue densities. IMPRESSION: Expected post-operative appearance of a hip arthroplasty. Dictated by: Carmen Junior M.D. on 05/03/2024 at 14:57 Approved by: Carmen Junior M.D. on 05/03/2024 at 14:57
--- NOTE | 2024-05-03 09:52 | PM.PREOP ---
Pre-operative Note Interval Note History & Physical reviewed/Exam performed by Physician: Yes Changes to H&P: No
--- NOTE | 2024-05-03 09:53 | PM.OP.1 ---
Operative Date/Time/Diagnoses Date of procedure: 05/03/24 Time of procedure: 10:30 Pre-op diagnosis: Severe right hip avascular necrosis Post-op diagnosis: same Procedure & Clinicians Procedure: Right total hip arthroplasty posterior approach Same procedure as scheduled: Yes Indications: The patient has had progressively worsening right hip pain with radiographic changes consistent with right hip avascular necrosis and hip arthritis. Non-operative management has failed and the patient has requested total hip replacement. The risks, benefits and alternatives to surgery were discussed with the patient prior to proceeding. Risks discussed included, but were not limited to, failure to relieve pain, leg length discrepancy, dislocation, stiffness, infection, nerve damage, deep venous thrombosis, pulmonary embolism, stroke, coma, heart attack, permanent paralysis and , as well as the potential need for eventual revision of the prosthetic. Surgeon: Katerin Chen Media Planner / Buyer: Marty Galvin Anesthesia Type: General and Spinal Operative Notes Findings: Severe right hip about gross and osteoarthritis, adequate stability Closure Type: primary Specimen(s): none sent Prosthetic devices, grafts, tissues, transplants, or devices: Chen and Nephew R3 size 56, neutral poly liner, two 6.5 mm screw, Synergy high offset size 12, 36 by +4 Oxinium femoral head Estimated Blood Loss (mL): 250 Blood products transfused: none Procedure in detail: The patient was seen in the pre-operative area, where the patient identified the right hip as the operative site and this was marked with my initials. The patient received pre-operative antibiotics and was taken to the operating room and placed on the operative table in the left lateral decubitus position after satisfactory anesthesia. A multimedia technician out was performed. The right leg was prepared from the ankle to the iliac crest with ChloroPrep in the usual fashion and draped through sterile drapes. A PA was used during the procedure was essential for in the upper intraoperative retraction and safe implantation of the components. Extra effort was required for intraoperative retraction due to the patient's anatomy and high BMI. The hip was approached through an approximately 24 cm incision centered over the greater trochanter and curving gently posteriorly as it went proximally. This was carried sharply to the fascia garth, which was divided and retracted with a self retaining retractor. The trochanteric bursa was excised with care being taken to avoid the sciatic nerve, which was identified and protected throughout the case. The short external rotators were incised and the capsulomuscular flap was raised and tagged for later repair. The hip was dislocated, and a femoral neck osteotomy performed approximately 15 mm above the lesser trochanter. Retractors were placed around the femur. The canal was opened with a box cutting osteotome, followed by a T handled reamer and a lateralizing reamer. The chili pepper broach was then used, followed by sequential broaching until there was good stability of the broach in the femur. Retractors were placed to expose the acetabulum. The labrum and central soft tissues were removed. Reaming was performed initially going up in 2 mm increments, then 1 mm increments until good bite was obtained with an odd sized reamer. The cup 1 mm larger than the last reamer was then inserted using the appropriate anteversion guides. It was further stabilized with two screws. A trial neutral liner was placed. The broach was placed in the canal. A trial head and neck were then placed and the hip relocated and checked for leg length and stability. An intraoperative film confirmed the component position and no evidence of fracture. The patient had less than optimal stability. Even with a high offset the hip was initially only stable to about 40? of internal rotation. I meticulously checked the positioning of the cup and the x-rays and felt that I should adjust the cup position. The trial components were removed. The screws were removed and the cup was repositioned with slightly more anteversion and initially it was a little bit too horizontal. A better position was achieved. New screws were placed. Neutral poly liner was placed. And a repeat trial reduction with a high offset size 12 and a +4 head showed better range motion and stability. The patient was stable in the position of sleep, of squatting, and could be put through a range of motion with 45 degrees internal rotation without dislocation. At 90 degrees flexion, internal rotation to 60-70 was possible before dislocation. An additional x-ray was taken. This was felt to be satisfactory and the appropriate components were opened, and the trials were removed. The acetabular liner was impacted into position. I meticulously also checked along the anterior rim and did remove some soft tissue and a little bit of osteophyte. The final stem was then impacted into the prepared femoral canal. A brief Betadine soak was performed while trialing with head options. The hip was meticulously irrigated with normal saline. Finally the femoral head was impacted onto the stem. The acetabulum was cleared of all material and the hip relocated one final time. The capsulomuscular flap was then repaired to the greater trochanter though an awl hole using the tag sutures. The short external rotators were repaired with a nonabsorbable suture. The fascia garth was closed with Vicryl. The subcutaneous layer was closed with barbed sutures and skin dennis. A washington dressing was applied and the patient was taken to recovery having tolerated the procedure well. Complications: none Post-operative Condition: stable Disposition: Acute Care Plan for aftercare: The patient will be maintained on a standard total hip replacement protocol with weight bearing as tolerated and posterior hip precautions. The patient will receive Aspirin and sequential compression devices for DVT prophylaxis. The patient will be discharged home when safe for the home environment.
[2024-05-03] MEDS: CEFAZOLIN VIAL 3 GM in SODIUM CHLORIDE 0.9% 100 ML IV ×2 (10:30→19:01)
--- NOTE | 2024-05-03 10:51 | SUR.OPER ---
Lateral on padded OR bed. Gel axillary roll. Arms secured on padded armboard with pillow supporting top arm. Padded hip positioner braces x4 - anterior and posterior chest and pelvis. Additional gel pad used anterior pelvis. Gel pad under bottom leg from knee to foot and secured with tape over sheet.
[2024-05-03] MEDS: BUPIVACAINE LIPOSOME 266 MG/20 ML VIAL INJ (10:56)
[2024-05-03] MEDS: TRANEXAMIC ACID 1,000 MG VIAL 1000 MG INJ ×2 (10:56→13:45)
[2024-05-03] MEDS: BUPIVACAINE 0.25% (PF) 60 ML, EPINEPHrine 0.3 MG INJ (10:57)
[2024-05-03] MEDS: SODIUM CHLORIDE IRRIG SOLUTION 250 ML, EPINEPHrine 1 MG IRR (11:27)
[2024-05-03] MEDS: LACTATED RINGERS 1,000 ML 100 ML IV ×2 (14:30→20:16)
--- NOTE | 2024-05-03 16:48 | OT.IP.EVAL ---
Current Diagnoses Idiopathic aseptic necrosis of right femur (05/03/24) Surgery Performed Operation Date: 05/03/24 10:45 Actual Procedures p Total Hip Arthroplasty(Right) - Katerin Chen MD Past Medical History (Last Reviewed 05/03/24 @ 09:31 by Kirstie Funes, RN) BPH w urinary obs/LUTS Diabetes GERD (gastroesophageal reflux disease) History of COVID-19 (2020) Hypertension Idiopathic aseptic necrosis of femur Nocturia Obesity SUNDAY (obstructive sleep apnea) Surgical History (Last Reviewed 05/03/24 @ 09:31 by Kirstie Funes, RN) History of carpal tunnel surgery History of lumbar discectomy History of tonsillectomy Hx of arthroscopy of right knee Hx of hernia repair Occupational Therapy Inpatient Evaluation/Re-Eval M1 PT/OT-IP Prior Functional Status Start: 05/03/24 17:05 Freq: NEEDED Status: Active Protocol: Document 05/03/24 17:05 [facility] (Rec: 05/03/24 17:22 [facility] [id number]) Medical Review Prior Functional Status Medical History Reviewed Yes Communication Independent Mobility and Gait Pt used a FWW inside and 4ww outside. Activities of Daily Living and IADL's Pt's elderly mom assist to help with his socks and shoes. Prior Functional Level (Other details) Pt states his sister to come and stay with him for a few days. Social History Household Members family Living Arrangements House Number of Floors (Floors) Two Floors Number of Stairs To Enter/Railing? No steps to enter to the main floor. The kitchen is up 7 steps with left rail and right wall, landing and another 8 steps with left rail and 1/2 right wall. Home Environment High Toilet,Tub/Shower Home Equipment Front Wheel Walker,Four Wheel Walker,Shower Seat with Backrest,Hand Held Shower,Sock Aid,Grab Bars Near Toilet, Grab Bars In Shower M2 OT-IP Current Condition Start: 05/03/24 17:05 Freq: Status: Active Protocol: Document 05/03/24 17:05 [facility] (Rec: 05/03/24 17:22 [facility] [id number]) Occupational Therapy Current Condition Current Condition Evaluation Date 05/03/24 Treatment Diagnosis S/P R MARIAM posterior approach Diagnosis Onset Date 05/03/24 Post Operative Precautions Posterior Hip Precautions No Hip Flexion > 90 degrees,No Hip Internal Rotation,No Hip Adduction M3 OT- IP Subjective and Pain Start: 05/03/24 17:05 Freq: Status: Active Protocol: Document 05/03/24 17:05 [facility] (Rec: 05/03/24 17:22 [facility] [id number]) OT- Subjective Occupational Therapy Visit Type Type Initial Evaluation Visit Start Time 16:08 Visit Stop Time 16:48 Occupational Therapy Visit Comments Patient Comments Pt agreed to try to get up. Patient/Caregiver Goals To go home. OT Pain Assessment Pain When Pain Assessed During Mobility Pain Present Pain Present Pain Reported Location hip Intensity 6 Scale Used Numeric (0 - 10) M4 OT- IP ADL's Start: 05/03/24 17:05 Freq: Status: Active Protocol: Document 05/03/24 17:05 [facility] (Rec: 05/03/24 17:22 [facility] [id number]) OT [id number] Comments OT Self-Feeding Comments Not at meal time. OT ADL-Grooming Comments OT Grooming Comments Not performed. OT ADL-Oral Care Comments Oral Care Comments Not performed. OT ADL-Dressing General Eval Lower Body Dressing Ability Maximum Assistance Areas Needing Assistance Socks OT ADL-Toileting Comments OT Toileting Comments Pt able to urinate a little after assist to get to the edge of the bed. OT ADL-Bathing Comments OT Bathing Comments Pt will benefit from a tub bench to use at home. Pt states uses the tub bench in front of the sink at this time and shower chair for inside the tub. Educated best to use the tub bench for showering needs to best follow his hip precautions. M5 OT- IP IADL's Start: 05/03/24 17:05 Freq: Status: Active Protocol: Document 05/03/24 17:05 [facility] (Rec: 05/03/24 17:22 [facility] [id number]) OT-Instrumental Activities of Daily Living Deficits IADL Deficits Identified Deficits Home Safety Awareness Awareness of Need for Assistance at Home Good Awareness Home Safety Comments Pt a bit groggy at this time and will need assist for most ADl and mobility needs at this time. Meal Preparation Meal Preparation Caregiver Provides Assist Tobacco Dipper Tobacco Dipper Caregiver Provides Assist M6 OT- IP Functional Cognition Start: 05/03/24 17:05 Freq: Status: Active Protocol: Document 05/03/24 17:05 [facility] (Rec: 05/03/24 17:22 [facility] [id number]) Cognitive Factors Limiting Selfcare Function Cognitive Ability Level of Alertness Alert,Drowsy Patient Orientation Name,Place,Situation Attention Span Ability Capable of Focused Attention, Capable of Sustained Attention Ability to Follow Commands Able to Follow One Step Commands with Increased Time, Able to Follow One Step Commands with Repetition Safety Awareness Decreased Ability to Apply Precautions Cognitive Comments Cognitive Assessment Comments Pt did not have any PT prior to surgery and also no outpt PT appointment set-up at this time. Pt having to be educated about his hip precautions. At this time pt needing step by step commands to follow as still groggy from just having surgery earlier. OT- Vision and Hearing OT- Hearing Assessment OT- Hearing Assessment WFL OT- Vision Assessment Visual Acuity Glasses All The Time Visual Attentiveness WFL Occular Pursuits WFL M7 OT- IP Mobility and Balance Start: 05/03/24 17:05 Freq: Status: Active Protocol: Document 05/03/24 17:05 [facility] (Rec: 05/03/24 17:22 [facility] [id number]) OT- Bed Mobility Assessment Rolling Level of Assistance Moderate Assistance,Bedrails Supine to Sit Supine to Sit Assist Moderate Assistance,Bedrails Sit to Supine Sit to Supine Assist Moderate Assistance,Bedrails OT-Transfer Assessment Sit to and From Stand Sit to and from Stand Moderate Assistance,Maximum Assistance,2 Person Assistance Technique Transfer Destination Bed Transfer Technique Stand Step Pivot Devices Transfer Assistive Devices Gait Belt,Front Wheeled Walker Comments Mobility Comments Assist to help move his RLE to the edge of the bed as pt gets in and out of bed on the left side at home. Able to educate use of gait belt to assist with his RLE. Spoke on sleeping positioning while following his hip precautions. MOD/MAX A x2 to stand. Pt needing cues to tighten his right quads and noted buckling and able to take a couple side steps with MAX AX 2 and heavy use of his hands on the FWW to move. OT- Balance Assessment Sitting Balance and Reactions Static Sitting Balance Ability Good Dynamic Sitting Balance Ability Fair Standing Balance and Reactions Static Standing Balance Ability Poor Dynamic Standing Balance Ability Poor M8 OT- IP Objective Assessments Start: 05/03/24 17:05 Freq: Status: Active Protocol: Document 05/03/24 17:05 [facility] (Rec: 05/03/24 17:22 [facility] [id number]) OT Gross Range of Motion Upper Extremity Range of Motion Assessment Within Functional Limits OT Strength Upper Extremity Strength Assessment Within Functional Limits M9 OT- IP Assessment and Plan Start: 05/03/24 17:05 Freq: Status: Active Protocol: Document 05/03/24 17:05 [facility] (Rec: 05/03/24 17:22 [facility] [id number]) OT Summary Assessment and Plan Potential Rehabilitation Potential Good Analytic Complexity at Evaluation Low Summary OT Impairments Pain,Strength,Balance, Functional Mobility,Grooming, Dressing,Toileting,Bathing, Toilet Transfers,Shower Transfers,Activity Tolerance Progress Towards Goals Slow Progress due to Pain,Slow Progress due to Medical Issues Assessment Summary Pt low complexity and main barriers are pain, still numb from surgery and having difficulty to keep his right leg from buckling while standing. Pt lives with an elderly mom at home and able to assist for socks/shoes and meals. Pt 's sister to come and stay for a few days. Pending progress and recover , at this time of OT eval, pt would benefit from skilled rehab. However, as pt progresses and recover, hopeful that pt will be moving better . Pt therefore would benefit from 20/06 assist and home health. Goals Grooming Goal Independent Dressing Goal Minimal Assistance,Long Handled Shoe Horn,Project Control Officer,Sock Aid Toileting Goal Independent Bathing Goal Minimal Assistance Toilet Transfer Goal Independent Shower Transfer Goal Contact Guard Assistance Days to Meet Goals 10 Frequency of Treatment Frequency Of Treatment Once a Day Treatment Plan OT Treatment Plan ADL Training,Functional Mobility,Patient/Family Education,Discharge Planning Other Treatment Recommendations and Next Practice equipment for ADL Treatment Focus needs. Discharge Recommendations OT Discharge Recommendations SNF as of current level right after OT eval. Home with / Assist Available,Home Health,SNF Rehab,Home vs SNF Home Equipment Needs LB dressing equipment Transportation Needs at Discharge Wheelchair/Cabulance
[2024-05-03] MEDS: OXYCODONE IR 5 MG TABLET PO ×2 (16:57→16:59)
--- NOTE | 2024-05-03 18:56 | PC.NURSE ---
Dayshift: Pain not adequately managed with 10mg of oxycodone. Pt reports taking 15mg of oxy TID at home. Notified MD Chen at 1845 who stated she will update pain medication orders. OOB with Ness WYNNE, legs buckled and pt unable to ambulate safely. For now pt remains in bed or 2PA/FWW to stand only. Will continue to monitor.
[2024-05-03] MEDS: hydrOXYzine HCL 25 MG TABLET PO (19:27)
[2024-05-03] MEDS: HYDROMORPHONE 2 MG TABLET PO ×2 (19:27→21:58)
[2024-05-03] MEDS: OXYCODONE IR 10 MG TABLET PO (20:11)
[2024-05-03] MEDS: ASPIRIN EC 81 MG TABLET PO (20:11)
[2024-05-03] MEDS: DOCUSATE 100 MG CAPSULE PO (20:11)
[2024-05-03] MEDS: IBUPROFEN 400 MG TABLET PO (21:52)
[2024-05-03] MEDS: ACETAMINOPHEN 325 MG TABLET 650 MG PO (21:59)
[2024-05-04] MEDS: CEFAZOLIN VIAL 3 GM in SODIUM CHLORIDE 0.9% 100 ML IV (01:47)
[2024-05-04] MEDS: HYDROMORPHONE 2 MG TABLET PO ×5 (06:37→22:09)
--- NOTE | 2024-05-04 07:11 | PM.PNPO.1 ---
Subjective Subjective Date Patient Seen: 05/04/24 Time Patient Seen: 07:11 Interval history: Pt awake in bed, has not been OOB yet. Pain about 6/10 w/ oral meds and IV dilaudid. Voiding without difficulty, denies N/V. Exam Vital Signs (past 8 hours): Oxygen Delivery Method Room Air Oxygen Flow Rate 0 Narrative Exam Narrative: 3/5 strength in hip flexors, quadriceps, hamstrings; 5/5 DF, PF, EHL on right. Sensation to light touch intact throughout RLE; calf soft and compressible. MAURO functioning, CDI. Objective Labs 05/04/24 06:45 [facility] Medical History History of COVID-19 (2020) Idiopathic aseptic necrosis of femur SUNDAY (obstructive sleep apnea) Nocturia Diabetes Obesity BPH w urinary obs/LUTS Hypertension GERD (gastroesophageal reflux disease) Surgical History (Updated 05/04/24 @ 07:12 by Connie Nichols PA-C) Hx of hernia repair Hx of arthroscopy of right knee History of lumbar discectomy History of tonsillectomy History of carpal tunnel surgery Social History marital status: household members: family occupational status: employed Smoking Status: Never smoker alcohol intake: former caffeine: Yes Assessment & Plan Post-op Assessment and plan (1) S/P total hip arthroplasty: Assessment and Plan narrative: Pt denies need for SNF rehab; has older sister and 91 yo mother who says will help care for him at home. Possible d/c home today pending PT eval and pain control with oral meds only. WBAT to RLE; posterior hip precautions. Good glycemic control; fingersticks < 200 since admission. Postoperative Procedures: Procedures Operation Date: 05/03/24 10:45 Actual Procedure Side Surgeon p Total Hip Arthroplasty Right Katerin Chen MD Postoperative day: 1 Quality VTE Deep Vein Thrombosis/Pulmonary Embolism Present on Admission: No
[2024-05-04 07:13] LABS: Hematocrit 38.7 % (41-53); Hemoglobin 12.8 g/dL (13.5-17.5)
[2024-05-04] MEDS: IBUPROFEN 400 MG TABLET PO ×2 (07:57→14:56)
[2024-05-04] MEDS: ASPIRIN EC 81 MG TABLET PO ×2 (07:57→20:37)
[2024-05-04] MEDS: hydrOXYzine HCL 25 MG TABLET PO ×2 (07:58→14:57)
[2024-05-04] MEDS: OXYCODONE IR 10 MG TABLET PO ×4 (07:58→20:37)
[2024-05-04] MEDS: ACETAMINOPHEN 325 MG TABLET 650 MG PO ×2 (07:58→14:56)
[2024-05-04 08:00] VITALS: BP 118/65; PULSE 93; RESP 19; TEMP 36.1; O2SAT 97
[2024-05-04] MEDS: METFORMIN XR 500 MG TABLET 1000 MG PO (09:48)
[2024-05-04] MEDS: LOSARTAN 50 MG TABLET PO (09:49)
[2024-05-04] MEDS: DOCUSATE 100 MG CAPSULE PO (09:49)
--- NOTE | 2024-05-04 11:00 | CM.DANOTE ---
DCP Assessment Note: Pt is a 58yo male, resident of [place], is here POD1 Right MARIAM. Pt lives in a house with his 91yo mother, Chloe. Pt has support from his sister, Rayna, who lives in [place]. Pt's sister is able to support pt and mother over the weekend. Pt's Primary Care Provider is Dr. Paola Vargas and insurance is [employer] and Medicaid. Reviewed chart and team rounds for pt's medical status and initial discharge needs. DCP met w/patient at bedside; introduced self and role. Present in the room is pt's sister, Rayna. Pt was found in bed, alert and oriented, cooperative with assessment. Pt confirmed living situation and slight anxiety around dispo. Pt reports that he was told at pre-op that he would most likely be denied for SNF placement due to his insurance. Pt expressed preference in SNF placement for rehab as he has very little physical support at home (mom is older and frail and sister is only visiting and has her own medical issues). SECURITY INCIDENT HANDLER discussed plan of care and that this is all pending pt's evaluation with therapies. Pt verbalized understanding that his insurance limits his options for SNF placement. SECURITY INCIDENT HANDLER discussed two plans pending therapy recommendations -- Plan A) SNF Rehab placement at [facility] or [facility] [only SNF confirmed to accept pt's insurance] Plan B) Home with home health [would need special authorizations with home health agencies], pt requests that if this were the plan, that he dc when he is able to ambulate 15-20feet from his bedroom to the bathroom. Plan: Awaiting PT/OT evaluations and recommendation for evolving discharge plans. CM team will plan to follow clinical course closely for assessment of need and coordination of discharge plan. LIDYA Lagunas Discharge Planning/Care Management CM Discharge Assessment Start: 05/04/24 10:55 Freq: Status: Active Protocol: Document 05/04/24 10:55 MW (Rec: 05/04/24 11:00 [facility] [id number]) Discharge Planning Assessment Assigned Lye Treater ALBIN Andrews DPOA/Assigned Designee Name Mother Corona Contact Information [phone] Advance Directives? No Advance Directives on File No History Provided By Patient,Family Member,Medical Record Has Patient been admitted in last 30 No days? Prior Living Arrangements House Comment Pt lives in a two story house with two flights of stairs. Pt 's bedroom is on the first floor but kitchen and main living area is on the second floor. Household Members family Comment Pt lives with his 91yo mother. Pt's sister, Rayna, is here for the weekend, to assist with cooking, cleaning if pt were to dc home over the weekend. Type of transporation used prior to Drives own vehicle admit Independent with ADL's Yes Is patient alert and oriented? Yes Caregiver for Another No DME Already Rented / Owned FWW / Walker Patient/Family Preference Shelter Facility Comment Pt is hoping to be admitted at SNF at discharge from hospital. Barriers to Discharge Yes Comment Pt's insurance limits referrals to SNF. Pt's Medicaid insurance is only [facility] at [facility]. Discharge Plan Shelter Facility Transportation Arrangement Mom or sister will be able to transport. Has Agency SNF been contacted Yes Comment This DCP confirmed pt can be [facility] at [facility]. Referral pending PT/OT recommendations. Whiteboard Updated in Patient Room with Yes name and ext. # of Lye Treater Comment [phone] Please Provide Date Initial DC 05/04/24 Assessment Was Performed Next Review Type Continued Stay Review
--- NOTE | 2024-05-04 11:30 | PT.IIE ---
Current Diagnoses Idiopathic aseptic necrosis of right femur (05/03/24) Presence of unspecified artificial hip joint (05/03/24) Surgery Performed Operation Date: 05/03/24 10:45 Actual Procedures p Total Hip Arthroplasty(Right) - Katerin Chen MD Surgical History (Last Reviewed 05/03/24 @ 09:31 by Kirstie Funes, RN) History of carpal tunnel surgery History of lumbar discectomy History of tonsillectomy Hx of arthroscopy of right knee Hx of hernia repair Medical History (Last Reviewed 05/03/24 @ 09:31 by Kirstie Funes, CARLOS) BPH w urinary obs/LUTS Diabetes GERD (gastroesophageal reflux disease) History of COVID-19 (2020) Hypertension Idiopathic aseptic necrosis of femur Nocturia Obesity SUNDAY (obstructive sleep apnea) Physical Therapy Inpatient Evaluation/Re-Eval M1 PT/OT-IP Prior Functional Status Start: 05/04/24 09:42 Freq: NEEDED Status: Active Protocol: Document 05/04/24 11:30 AB (Rec: 05/04/24 12:58 AB [id number]) Medical Review Prior Functional Status Medical History Reviewed Yes Communication able to make needs known Mobility and Gait pt stated that he was modified independent with all mobilities and ambulation wusing a 4WW Social History Household Members family Living Arrangements House Number of Floors (Floors) Two Floors Number of Stairs To Enter/Railing? no steps to enter the house but has 7 steps L rail + landing + 8 steps L rail to get to kitchen/dining room area ( pt usually uses L rail + tripod cane with stairs) Home Environment High Toilet,Tub/Shower Home Equipment Front Wheel Walker,Four Wheel Walker,Tub Transfer Bench,Hand Held Shower,Grab Bars Near Toilet,Grab Bars In Shower Additional Social History Comment pt lives with his 90 y/o mom and will not be able to assist him much at home; pt's sister plans to stay with them for 2 days to assist pt has a tripod cane M2 PT-IP Current Condition Start: 05/04/24 09:42 Freq: NEEDED Status: Active Protocol: Document 05/04/24 11:30 AB (Rec: 05/04/24 12:58 AB [id number]) Physical Therapy Current Condition Current Condition Evaluation Date 05/04/24 Treatment Diagnosis s/p R MARIAM posterior; difficulty in walking Onset Date 05/03/24 M3 PT-IP Subjective Start: 05/04/24 09:42 Freq: NEEDED Status: Active Protocol: Document 05/04/24 11:30 AB (Rec: 05/04/24 12:58 AB [id number]) Subjective Physical Therapy Visit Type Type Initial Evaluation Visit Start Time 11:30 Visit Stop Time 12:35 Number of CHRISTIAN SCIENCE READER Visits 0 Physical Therapy Visit Comments Patient Comments c/o increase pain; agreed to do PT Therapy Pain Assessment Pain When Pain Assessed At Rest Pain Present Pain Present Pain Reported Location hip Intensity 6 Scale Used 7/10 with mobility Description Pulling,Sharp Pain Behaviors Calling Out,Facial Grimacing, Guarding,Holding Area,Wincing Pain Management Techniques Apply Cold,Distraction, Modification of Treatment,Re- positioning,Timing of Activity with Medications M4 PT-IP Mobility and Gait Start: 05/04/24 09:42 Freq: NEEDED Status: Active Protocol: Document 05/04/24 11:30 AB (Rec: 05/04/24 12:58 AB [id number]) PT-Bed Mobility Assessment Supine to Sit Supine to Sit Maximum Assistance,1 Person Assistance,2 Person Assistance ,Head of Bed Elevated,Bedrails Sit to Supine Sit to Supine Maximum Assistance,2 Person Assistance,Bedrails PT-Transfer Assessment Sit to and From Stand Sit to and from Stand Maximum Assistance,1 Person Assistance,2 Person Assistance ,Use of Upper Extremities Equipment Transfer Assistive Device Gait Belt,Front Wheeled Walker Orthotic/Prosthetic Devices or Brace: No Comments Mobility Comments pt supine in bed and agreeable to do PT. obtained pLOF and home set up from pt. reviewed R hip posterior precautions with pt. pt requiring cues to recall. BP in supien: 137/78. completed supine to sit max Ax 1-2 and max cues. initially attempted to get up from a flat surface but pt unable and c/o increase R hip pain. elevated HOB up to assist and pt completed supine to sit max A x 1-2 and max cues. pt able to sit on EOB min A and cues. completed sit to stand max A x 1-2 and max cues. refused to transfer to the chair. instructed to take steps towards HOB and completed 2 steps using FWW max A x 1-2 and max cues and pt sat down on EOB. c/o increase pain. informed pt importance of getting out of the bed but c/o increase pain and stated that he needs the pain under control. nurse in room and is aware. pt agreed to stand again and completed requiring max A x1-2 and max cues. pt again refused to transfer to the chair. instructed to take side steps again towards HOB and completed requirind max A x 1- 2 and max cues using fWW. pt requires max cues to adhere to hip precautions. pt completed sit to supine max A x 2 and max cues positioned pt in bed . call light and table placed within reach. informed pt regarding current assistance level and recommendation for SNF rehab and pt agreed. Gait Assessment Comments Gait Comments able to take side steps towards HOB using FWW max A x 1-2 and max cues. PT-Balance Assessment Sitting Balance and Reactions Static Sitting Balance Ability Good Dynamic Sitting Balance Ability Fair Standing Balance and Reactions Static Standing Balance Ability Poor Dynamic Standing Balance Ability Poor Device Used FWW M5 PT-IP Objective Assessments Start: 05/04/24 09:42 Freq: NEEDED Status: Active Protocol: Document 05/04/24 11:30 AB (Rec: 05/04/24 12:58 [id number]) Orientation Orientation/Cognition Level of Alertness Alert Orientation Name,Place,Situation Language Function Ability No Deficits Noted Safety Awareness Decreased Safety Awareness Memory Description Short Term Impaired Gross Range of Motion Lower Extremity ROM Assessment Within Functional Limits Strength Lower Extremity Strength Assessment Right Impaired Hip 2+/5 Knee 3+/5 Sensation Assessment Sensation Sensation Description Numbness Comments Sensation Comments has neuropathy on B feet per pt Muscle Tone Muscle Tone WNL Yes M6 PT-IP Treatment Start: 05/04/24 09:42 Freq: NEEDED Status: Active Protocol: Document 05/04/24 11:30 AB (Rec: 05/04/24 12:58 AB [id number]) Physical Therapy Treatment Exercises Exercises Heel Slides Education Education Provided Precautions,Weight Bearing Status,Post-Op Packet,Safety M7 PT-IP Assessment and Plan Start: 05/04/24 09:42 Freq: NEEDED Status: Active Protocol: Document 05/04/24 11:30 AB (Rec: 05/04/24 12:58 [id number]) PT Summary Assessment and Plan Potential Rehabilitation Potential Fair Status of Condition at Evaluation Evolving Summary Impairments Pain,ROM,Strength,Balance, Coordination,Sensation,Tone, Cognition,Bed Mobility, Transfers,Gait,Activity Tolerance Assessment Summary pt is a 58 y/o M s/p R MARIAM posterior approach POD 1. pt has R hip posterior precautions and is WBAT on RLE . pt requiring max A x 1-2 and max cues. pt will require 24 /7 assistance and will require SNF rehab to improve overall strength and mobility independence. Goals Bed Mobility Goal Standby Assistance Transfer Goal Standby Assistance,Front Wheeled Walker Gait Goal Standby Assistance,Front Wheel Walker Gait Distance 50 Other Goals improve bed mobility, transfers and ambulation using FWW ~ 100 ft mod I up/down 16 steps L rail + tripod cane SBA Days to Meet Goals 10 Frequency of Treatment Frequency Of Treatment Twice a Day Treatment Plan Physical Therapy Treatment Plan Bed Mobility Training,Transfer Training,Gait Training, Therapeutic Exercise,Balance Retraining,Post Op Education, Discharge Planning,Hot or Cold Pack,Neuromuscular Re-ed, Coordination Retraining,Manual Therapy Precautions Posterior Hip Precautions No Hip Flexion > 90 degrees,No Hip Internal Rotation,No Hip Adduction Weight Bearing Status Weight Bearing Status Weight Bear as Tolerated Allowed Weight Bearing Amount (enter % RLE WBAT or #) (%) Recommendations To Nursing Amount of Assist Needed 2 Person Assist Discharge Recommendations PT Discharge Recommendations SNF Rehab Transportation Needs at Discharge Wheelchair/Cabulance
[2024-05-04 12:00] VITALS: BP 130/87; PULSE 92; RESP 20; TEMP 36.4; O2SAT 96
[2024-05-04] MEDS: DOCUSATE 100 MG CAPSULE 200 MG PO ×2 (14:56→20:37)
[2024-05-04] MEDS: polyethylene glycoL 3350 17 GM POWD.PACK PO (14:57)
--- NOTE | 2024-05-04 15:37 | PT.IPTN ---
Current Diagnoses Idiopathic aseptic necrosis of right femur (05/03/24) Presence of unspecified artificial hip joint (05/03/24) Surgery Performed Operation Date: 05/03/24 10:45 Actual Procedures p Total Hip Arthroplasty(Right) - Katerin Chen MD Physical Therapy Treatment Note M2 PT-IP Current Condition Start: 05/04/24 09:42 Freq: NEEDED Status: Active Protocol: Document 05/04/24 11:30 AB (Rec: 05/04/24 12:58 AB [id number]) Physical Therapy Current Condition Current Condition Evaluation Date 05/04/24 Treatment Diagnosis s/p R MARIAM posterior; difficulty in walking Onset Date 05/03/24 M3 PT-IP Subjective Start: 05/04/24 09:42 Freq: NEEDED Status: Active Protocol: Document 05/04/24 16:14 TS (Rec: 05/04/24 16:28 TS [id number]) Subjective Physical Therapy Visit Type Type Treatment Note Visit Start Time 15:37 Visit Stop Time 16:13 Number of LETTER OF CREDIT CLERK Visits 1 Physical Therapy Visit Comments Patient Comments Pt found with OT in room, pt reports high pain with movement, pt is agreeable to PT. Therapy Pain Assessment Pain When Pain Assessed At Rest Pain Present Pain Present Pain Reported M4 PT-IP Mobility and Gait Start: 05/04/24 09:42 Freq: NEEDED Status: Active Protocol: Document 05/04/24 16:14 TS (Rec: 05/04/24 16:28 TS [id number]) PT-Bed Mobility Assessment Supine to Sit Supine to Sit Maximum Assistance,2 Person Assistance,Head of Bed Elevated Scooting Scooting to Edge of Bed Maximum Assistance PT-Transfer Assessment Sit to and From Stand Sit to and from Stand Moderate Assistance,1 Person Assistance,2 Person Assistance Equipment Transfer Assistive Device Gait Belt,Front Wheeled Walker Orthotic/Prosthetic Devices or Brace: No Transfers Transfer Destination Chair Transfer Technique Stand Step Pivot Transfer Ability Level of Assist Minimal Assistance,2 Person Assistance Comments Mobility Comments Pt performed ther-ex of heel slides and quad sets prior to mobility. Supine to sit MaxA x2 with HOB elevated, pt required assist with RLE to EOB and uprighting trunk. He scooted to EOB MaxA with use of transfer pad, provided cues for sequencing. He performed STS x2 ModA x1-2 with FWW, pt hyperextends R knee. Stand step pivot to chair Cruz x2 with use of FWW. Pt was left in chair, all needs met. Gait Assessment Comments Gait Comments Stand step pivot to chair. PT-Balance Assessment Sitting Balance and Reactions Static Sitting Balance Ability Good Dynamic Sitting Balance Ability Fair Standing Balance and Reactions Static Standing Balance Ability Fair Dynamic Standing Balance Ability Fair Device Used FWW M5 PT-IP Objective Assessments Start: 05/04/24 09:42 Freq: NEEDED Status: Active Protocol: Document 05/04/24 11:30 AB (Rec: 05/04/24 12:58 AB [id number]) Orientation Orientation/Cognition Level of Alertness Alert Orientation Name,Place,Situation Language Function Ability No Deficits Noted Safety Awareness Decreased Safety Awareness Memory Description Short Term Impaired Gross Range of Motion Lower Extremity ROM Assessment Within Functional Limits Strength Lower Extremity Strength Assessment Right Impaired Hip 2+/5 Knee 3+/5 Sensation Assessment Sensation Sensation Description Numbness Comments Sensation Comments has neuropathy on B feet per pt Muscle Tone Muscle Tone WNL Yes M6 PT-IP Treatment Start: 05/04/24 09:42 Freq: NEEDED Status: Active Protocol: Document 05/04/24 16:14 TS (Rec: 05/04/24 16:28 TS [id number]) Physical Therapy Treatment Exercises Exercises Gluteal Sets,Quad Sets,Heel Slides Education Education Provided Precautions,Weight Bearing Status,Post-Op Packet,Safety M7 PT-IP Assessment and Plan Start: 05/04/24 09:42 Freq: NEEDED Status: Active Protocol: Document 05/04/24 16:14 TS (Rec: 05/04/24 16:28 TS [id number]) PT Summary Assessment and Plan Potential Rehabilitation Potential Fair Summary Impairments Pain,ROM,Strength,Balance, Coordination,Sensation,Tone, Cognition,Bed Mobility, Transfers,Gait,Activity Tolerance Progress Towards Goals Slow Progress due to Pain Assessment Summary Louisa made some progress this afternoon with his mobility but remains limited by pain. He continues to be MaxA x2 for bed mobility. He required decreased assist for STS from bed x2 with ModA. He performed stand step pivot to chair Cruz x2 for safety and use of FWW. Pt tends to hyperextend knee with gait and in standing . PT will continue to recommend SNF at this time. Goals Bed Mobility Goal Standby Assistance Transfer Goal Standby Assistance,Front Wheeled Walker Gait Goal Standby Assistance,Front Wheel Walker Gait Distance 50 Other Goals improve bed mobility, transfers and ambulation using FWW ~ 100 ft mod I up/down 16 steps L rail + tripod cane SBA Days to Meet Goals 10 Frequency of Treatment Frequency Of Treatment Twice a Day Treatment Plan Physical Therapy Treatment Plan Bed Mobility Training,Transfer Training,Gait Training, Therapeutic Exercise,Balance Retraining,Post Op Education, Discharge Planning,Hot or Cold Pack,Neuromuscular Re-ed, Coordination Retraining,Manual Therapy Precautions Posterior Hip Precautions No Hip Flexion > 90 degrees,No Hip Internal Rotation,No Hip Adduction Weight Bearing Status Weight Bearing Status Weight Bear as Tolerated Allowed Weight Bearing Amount (enter % RLE WBAT or #) (%) Recommendations To Nursing Amount of Assist Needed 2 Person Assist Discharge Recommendations PT Discharge Recommendations SNF Rehab Transportation Needs at Discharge Wheelchair/Cabulance
--- NOTE | 2024-05-04 16:10 | OT.IP.TRT ---
Current Diagnoses Idiopathic aseptic necrosis of right femur (05/03/24) Presence of unspecified artificial hip joint (05/03/24) Surgery Performed Operation Date: 05/03/24 10:45 Actual Procedures p Total Hip Arthroplasty(Right) - Katerin Chen MD Occupational Therapy Treatment Note M2 OT-IP Current Condition Start: 05/03/24 17:05 Freq: Status: Active Protocol: Document 05/03/24 17:05 [facility] (Rec: 05/03/24 17:22 [facility] [id number]) Occupational Therapy Current Condition Current Condition Evaluation Date 05/03/24 Treatment Diagnosis S/P R MARIAM posterior approach Diagnosis Onset Date 05/03/24 Post Operative Precautions Posterior Hip Precautions No Hip Flexion > 90 degrees,No Hip Internal Rotation,No Hip Adduction M3 OT- IP Subjective and Pain Start: 05/03/24 17:05 Freq: Status: Active Protocol: Document 05/04/24 17:38 [facility] (Rec: 05/04/24 17:46 [facility] [id number]) OT- Subjective Occupational Therapy Visit Type Type Treatment Note Visit Start Time 15:30 Visit Stop Time 16:10 Occupational Therapy Visit Comments Patient Comments Pt having lots of pain however open to getting up. Patient/Caregiver Goals To go to skilled rehab. OT Pain Assessment Pain When Pain Assessed During Mobility Pain Present Pain Present Pain Reported Location hip Intensity 8 Scale Used Numeric (0 - 10) M4 OT- IP ADL's Start: 05/03/24 17:05 Freq: Status: Active Protocol: Document 05/04/24 17:38 [facility] (Rec: 05/04/24 17:46 [facility] [id number]) OT [id number] Comments OT Self-Feeding Comments Not at meal time. OT ADL-Grooming Comments OT Grooming Comments Not performed. OT ADL-Oral Care Comments Oral Care Comments Not performed. OT ADL-Dressing General Eval Lower Body Dressing Ability Maximum Assistance Areas Needing Assistance Socks OT ADL-Toileting Comments OT Toileting Comments Not performed. Educated pt on toilet paper aid and will be easier to stand, wipe and obtain use of toilet paper aid to assist. OT ADL-Bathing Comments OT Bathing Comments Educated use of shower spray or long thin towel to assist between his legs for hygiene needs while showering. M5 OT- IP IADL's Start: 05/03/24 17:05 Freq: Status: Active Protocol: Document 05/03/24 17:05 [facility] (Rec: 05/03/24 17:22 [facility] [id number]) OT-Instrumental Activities of Daily Living Deficits IADL Deficits Identified Deficits Home Safety Awareness Awareness of Need for Assistance at Home Good Awareness Home Safety Comments Pt a bit groggy at this time and will need assist for most ADl and mobility needs at this time. Meal Preparation Meal Preparation Caregiver Provides Assist Director It Director It Caregiver Provides Assist M6 OT- IP Functional Cognition Start: 05/03/24 17:05 Freq: Status: Active Protocol: Document 05/04/24 17:38 [facility] (Rec: 05/04/24 17:46 [facility] [id number]) Cognitive Factors Limiting Selfcare Function Cognitive Ability Level of Alertness Alert Patient Orientation Name,Place,Situation Attention Span Ability Capable of Focused Attention, Capable of Sustained Attention Ability to Follow Commands Able to Follow One Step Commands Cognitive Comments Cognitive Assessment Comments Pt able to state and follow his hip precautions. Pt having lots of pain and able to talk to pt about his pain and able to open up a little emotionally as pt states his hip pain has limited him for doing thing and getting out of the house. M7 OT- IP Mobility and Balance Start: 05/03/24 17:05 Freq: Status: Active Protocol: Document 05/04/24 17:38 [facility] (Rec: 05/04/24 17:46 [facility] [id number]) OT- Bed Mobility Assessment Supine to Sit Supine to Sit Assist Maximum Assistance,2 Person Assistance OT-Transfer Assessment Sit to and From Stand Sit to and from Stand Moderate Assistance Transfers Transfer Ability Moderate Assistance,2 Person Assistance Technique Transfer Destination Bed,Chair Transfer Technique Stand Step Pivot Devices Transfer Assistive Devices Gait Belt,Front Wheeled Walker Comments Mobility Comments MAX AX 2 to get to the edge of the bed . Assist to scoot forwards and MODA X2 to stand to the bariatric FWW and transfer to the recliner. Pt tends to hyperextend his right knee and needing tactile cues to tighten his quads. OT- Balance Assessment Sitting Balance and Reactions Static Sitting Balance Ability Good Dynamic Sitting Balance Ability Fair Standing Balance and Reactions Static Standing Balance Ability Poor Dynamic Standing Balance Ability Poor M8 OT- IP Objective Assessments Start: 05/03/24 17:05 Freq: Status: Active Protocol: Document 05/03/24 17:05 [facility] (Rec: 05/03/24 17:22 [facility] [id number]) OT Gross Range of Motion Upper Extremity Range of Motion Assessment Within Functional Limits OT Strength Upper Extremity Strength Assessment Within Functional Limits M9 OT- IP Assessment and Plan Start: 05/03/24 17:05 Freq: Status: Active Protocol: Document 05/04/24 17:38 [facility] (Rec: 05/04/24 17:46 [facility] [id number]) OT Summary Assessment and Plan Potential Rehabilitation Potential Good Analytic Complexity at Evaluation Low Summary OT Impairments Pain,Strength,Balance, Functional Mobility,Grooming, Dressing,Toileting,Bathing, Toilet Transfers,Shower Transfers,Activity Tolerance Progress Towards Goals Progressing Toward Goals,Slow Progress due to Pain Assessment Summary Pt still having lots of pain. Pt able to transfer with MODA x2 with FWW to the recliner but tends to hyperextend with right knee due to weakness. Pt will greatly benefit from skilled rehab. Goals Grooming Goal Independent Dressing Goal Minimal Assistance,Long Handled Shoe Horn,Lift Supervisor,Sock Aid Toileting Goal Independent Bathing Goal Minimal Assistance Toilet Transfer Goal Independent Shower Transfer Goal Contact Guard Assistance Days to Meet Goals 20 Frequency of Treatment Frequency Of Treatment Once a Day Treatment Plan OT Treatment Plan ADL Training,Functional Mobility,Patient/Family Education,Discharge Planning Discharge Recommendations OT Discharge Recommendations SNF Rehab Transportation Needs at Discharge Wheelchair/Cabulance
[2024-05-04] MEDS: HYDROMORPHONE 2 MG TABLET 4 MG PO (17:59)
--- NOTE | 2024-05-04 18:46 | PC.NURSE ---
Pt had accidentally received his tray prior to glucose being checked. Post meal cbg was 222. He will be rechecked tonight.
[2024-05-04] MEDS: KETOROLAC 30 MG/ML VIAL 15 MG IV (21:22)
[2024-05-05] MEDS: HYDROMORPHONE 2 MG TABLET 4 MG PO ×6 (03:44→22:25)
[2024-05-05] MEDS: ACETAMINOPHEN 325 MG TABLET 650 MG PO ×3 (08:30→20:56)
[2024-05-05] MEDS: OXYCODONE IR 10 MG TABLET PO ×4 (08:30→20:57)
[2024-05-05] MEDS: ASPIRIN EC 81 MG TABLET PO ×2 (08:30→20:56)
[2024-05-05] MEDS: LOSARTAN 50 MG TABLET PO (08:30)
[2024-05-05] MEDS: METFORMIN XR 500 MG TABLET 1000 MG PO (08:30)
[2024-05-05] MEDS: IBUPROFEN 400 MG TABLET PO ×3 (10:30→18:52)
--- NOTE | 2024-05-05 16:35 | PC.NURSE ---
Computer downtime 05/04 1900 until 05/05 1600. See paper/scanned documentation
[2024-05-05 20:24] VITALS: BP 130/67; PULSE 70; RESP 17; TEMP 36.4; O2SAT 98
[2024-05-05] MEDS: DOCUSATE 100 MG CAPSULE 200 MG PO (20:56)
[2024-05-05] MEDS: hydrOXYzine HCL 25 MG TABLET PO (22:25)
--- NOTE | 2024-05-06 01:09 | PC.NURSE ---
Addendum entered by Liyah Lugo R.N. 05/06/24 04:47: Has been asleep for past several hours and stated pain is now 7/10 but appreciates being able to sleep. Medicated with Dilaudid 4mg + Ibuprofen. One of the Dilaudid pills (using 2 2mg pills) fell on floor so wasted with Allie, coordinator, and took another 2mg pill out of pyxis to complete dose. Original Note: Patient is alert and oriented. Breath sound diminished but CTA with RA sat of 98%. HRR. Denied nausea. BT present and is passing flatus; had BM 6/8. Voiding per urinal but has frequency which he states is chronic but does drink lots of water during noc shift. Is able to move himself in bed with use of trapeze. Has difficulty getting himself to edge of bed in sitting position but is able to do so without help except for trapeze. Is up with walker and 1 assist but is weak in right LE. MAURO dressing to right hip CDI and functioning. CMS is intact except for chronic neuropathy and decreased ROM. Bilateral calf SCD's applied at time of assessment. Pain still minimally controlled with use of Tylenol + oxycodone + dilaudid + vistaril so far this shift. When asked to rate severity it is always 5-7/10. Fall risk score is high and bed alarm is activated.
[2024-05-06] MEDS: IBUPROFEN 400 MG TABLET PO ×4 (04:38→20:36)
[2024-05-06] MEDS: HYDROMORPHONE 2 MG TABLET 4 MG PO ×6 (04:38→23:13)
[2024-05-06] MEDS: OXYCODONE IR 10 MG TABLET PO ×2 (06:09→10:09)
[2024-05-06] MEDS: ACETAMINOPHEN 325 MG TABLET 650 MG PO ×2 (06:10→11:57)
[2024-05-06 08:00] VITALS: BP 126/70; PULSE 86; RESP 18; TEMP 36.7; O2SAT 94
[2024-05-06 08:51] VITALS: BP 126/70; PULSE 87
[2024-05-06] MEDS: METFORMIN XR 500 MG TABLET 1000 MG PO (08:51)
[2024-05-06] MEDS: ASPIRIN EC 81 MG TABLET PO ×2 (08:51→20:36)
[2024-05-06] MEDS: LOSARTAN 50 MG TABLET PO (08:51)
[2024-05-06] MEDS: DOCUSATE 100 MG CAPSULE 200 MG PO ×2 (08:52→20:36)
--- NOTE | 2024-05-06 11:07 | PT.IPTN ---
Current Diagnoses Idiopathic aseptic necrosis of right femur (05/03/24) Presence of unspecified artificial hip joint (05/03/24) Surgery Performed Operation Date: 05/03/24 10:45 Actual Procedures p Total Hip Arthroplasty(Right) - Katerin Chen MD Physical Therapy Treatment Note M2 PT-IP Current Condition Start: 05/04/24 09:42 Freq: NEEDED Status: Active Protocol: Document 05/04/24 11:30 AB (Rec: 05/04/24 12:58 AB [id number]) Physical Therapy Current Condition Current Condition Evaluation Date 05/04/24 Treatment Diagnosis s/p R MARIAM posterior; difficulty in walking Onset Date 05/03/24 M3 PT-IP Subjective Start: 05/04/24 09:42 Freq: NEEDED Status: Active Protocol: Document 05/06/24 10:32 KS (Rec: 05/06/24 12:43 KS [id number]) Subjective Physical Therapy Visit Type Type Treatment Note Visit Start Time 10:32 Visit Stop Time 11:07 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 Therapy Pain Assessment Pain When Pain Assessed At Rest Pain Present Pain Present Pain Reported Location hip Scale Used not quantified Pain Behaviors Guarding,Wincing M4 PT-IP Mobility and Gait Start: 05/04/24 09:42 Freq: NEEDED Status: Active Protocol: Document 05/06/24 10:32 KS (Rec: 05/06/24 12:43 KS [id number]) PT-Bed Mobility Assessment Supine to Sit Supine to Sit Minimal Assistance,1 Person Assistance,Head of Bed Elevated,Bedrails Scooting Scooting to Edge of Bed Minimal Assistance PT-Transfer Assessment Sit to and From Stand Sit to and from Stand Contact Guard Assistance,1 Person Assistance,Use of Upper Extremities Equipment Transfer Assistive Device Gait Belt,Front Wheeled Walker Orthotic/Prosthetic Devices or Brace: No Transfers Transfer Destination Chair Transfer Technique ambulated Transfer Ability Level of Assist Minimal Assistance Comments Mobility Comments Pt in bed upon arrival, agreeable to work w/ PT. Pt now has trapeze over his bed to assist w/ sup<>sit which has been very helpful for him. Min A for scooting EOB, CGA for sit<>Stand w/ FWW. Pt amblated ~60 ft w/ FWW CGA to Min A for safety. Pt returned to room and chair and performed LE exercises, left w / all needs in reach. Gait Assessment Gait Gait Assistance Required: Contact Guard Assist,Minimum Assistance,1 Person Assist Distance (Feet) 60 Able to Maintain Weight Bearing Status Yes During Gait Assistive Devices Assistive Device Gait Belt,Front Wheeled Walker Orthotic/Prosthetic Devices or Brace: No Gait Deviations General Gait Pattern Antalgic,Decreased Stride Length,Decreased Feet Clearance,Flexed Trunk,Lateral Trunk Lean Factors Limiting Gait Function Factors Limiting Gait Function Decreased Activity Tolerance, Decreased Sensation,Decreased Strength,Incoordination, Limited Range of Motion,Pain, Poor Balance Comments Gait Comments See mobility section. Stair Climbing Assessment Comments Stair Climbing Comments Did not assess PT-Balance Assessment Sitting Balance and Reactions Static Sitting Balance Ability Good Dynamic Sitting Balance Ability Fair Standing Balance and Reactions Static Standing Balance Ability Fair Dynamic Standing Balance Ability Fair Device Used FWW M5 PT-IP Objective Assessments Start: 05/04/24 09:42 Freq: NEEDED Status: Active Protocol: Document 05/04/24 11:30 AB (Rec: 05/04/24 12:58 AB [id number]) Orientation Orientation/Cognition Level of Alertness Alert Orientation Name,Place,Situation Language Function Ability No Deficits Noted Safety Awareness Decreased Safety Awareness Memory Description Short Term Impaired Gross Range of Motion Lower Extremity ROM Assessment Within Functional Limits Strength Lower Extremity Strength Assessment Right Impaired Hip 2+/5 Knee 3+/5 Sensation Assessment Sensation Sensation Description Numbness Comments Sensation Comments has neuropathy on B feet per pt Muscle Tone Muscle Tone WNL Yes M6 PT-IP Treatment Start: 05/04/24 09:42 Freq: NEEDED Status: Active Protocol: Document 05/06/24 10:32 KS (Rec: 05/06/24 12:43 SD [id number]) Physical Therapy Treatment Exercises Exercises Ankle Pumps,Gluteal Sets,Quad Sets Education Education Provided Precautions,Weight Bearing Status,Post-Op Packet,Safety Other Treatments Other Treatment Performed Began caregiver training - demonstrated gait belt application, how to provide assistance w/ transfers and ambulation. Provided DME list to see about lift chair rental . M7 PT-IP Assessment and Plan Start: 05/04/24 09:42 Freq: NEEDED Status: Active Protocol: Document 05/06/24 10:32 KS (Rec: 05/06/24 12:43 SD [id number]) PT Summary Assessment and Plan Potential Rehabilitation Potential Fair Summary Impairments Pain,ROM,Strength,Balance, Coordination,Sensation,Tone, Cognition,Bed Mobility, Transfers,Gait,Activity Tolerance Progress Towards Goals Slow Progress due to Pain,Slow Progress due to Activity Tolerance Assessment Summary Pts main barrier at this time is bed mobility. He is unable to get out of bed on his own and needs assistance or trapeze which he does not have at home. Pt able to mbulate 60 ft w/ FWW reports fatigue and increased pain following. Pt would benefit from SNF as he has multiple chairs, no lift chair or adjustable bed or trapeze to assist him with getting out of bed and not enough help at home. Goals Bed Mobility Goal Standby Assistance Transfer Goal Standby Assistance,Front Wheeled Walker Gait Goal Standby Assistance,Front Wheel Walker Gait Distance 50 Other Goals improve bed mobility, transfers and ambulation using FWW ~ 100 ft mod I up/down 16 steps L rail + tripod cane SBA Days to Meet Goals 10 Frequency of Treatment Frequency Of Treatment Twice a Day Treatment Plan Physical Therapy Treatment Plan Bed Mobility Training,Transfer Training,Gait Training, Therapeutic Exercise,Balance Retraining,Post Op Education, Discharge Planning,Hot or Cold Pack,Neuromuscular Re-ed, Coordination Retraining,Manual Therapy Precautions Posterior Hip Precautions No Hip Flexion > 90 degrees,No Hip Internal Rotation,No Hip Adduction Weight Bearing Status Weight Bearing Status Weight Bear as Tolerated Allowed Weight Bearing Amount (enter % RLE WBAT or #) (%) Recommendations To Nursing Amount of Assist Needed 1 Person Assist Discharge Recommendations PT Discharge Recommendations SNF Rehab Transportation Needs at Discharge Wheelchair/Cabulance
[2024-05-06] MEDS: hydrOXYzine HCL 25 MG TABLET PO (11:57)
--- NOTE | 2024-05-06 12:30 | P.PN_ITS ---
Exam Vital Signs (past 8 hours): - 05/06/24 08:00 05/06/24 08:51 Temperature 98.0 F Pulse Rate 86 87 Respiratory Rate 18 Blood Pressure 126/70 126/70 Pulse Oximetry 94 Oxygen Flow Rate 0 Oxygen Delivery Method Room Air Oxygen Flow Rate 0 Objective Labs 05/04/24 06:45 [facility] Medical History History of COVID-19 (2020) Idiopathic aseptic necrosis of femur SUNDAY (obstructive sleep apnea) Nocturia Diabetes Obesity BPH w urinary obs/LUTS Hypertension GERD (gastroesophageal reflux disease) Surgical History (Updated 05/04/24 @ 07:12 by Connie Nichols PA-C) Hx of hernia repair Hx of arthroscopy of right knee History of lumbar discectomy History of tonsillectomy History of carpal tunnel surgery Social History marital status: household members: family occupational status: employed Smoking Status: Never smoker alcohol intake: former caffeine: Yes Assessment & Plan Assessment & Plan narrative: POD#3 s/p right MARIAM. Slow to progress with PT. On exam, his dressing is intact. His RLE is NVI w/o evidence of DVT. I discussed plans for discharge with him. He has limited help at home. His sister came today for assist training. Patient still required maximum assist to simply get out of bed. At this time, patient will continue PT/OT training IP. Care management is looking at possible disposition options. Will continue PT/OT and medical management. Possible d/c to rehab/SNF once patient is approved for disposition to a facility. Quality VTE Deep Vein Thrombosis/Pulmonary Embolism Present on Admission: No
--- NOTE | 2024-05-06 13:16 | PT.IPTN ---
Current Diagnoses Idiopathic aseptic necrosis of right femur (05/03/24) Presence of unspecified artificial hip joint (05/03/24) Surgery Performed Operation Date: 05/03/24 10:45 Actual Procedures p Total Hip Arthroplasty(Right) - Katerin Chen MD Physical Therapy Treatment Note M2 PT-IP Current Condition Start: 05/04/24 09:42 Freq: NEEDED Status: Active Protocol: Document 05/04/24 11:30 AB (Rec: 05/04/24 12:58 AB [id number]) Physical Therapy Current Condition Current Condition Evaluation Date 05/04/24 Treatment Diagnosis s/p R MARIAM posterior; difficulty in walking Onset Date 05/03/24 M3 PT-IP Subjective Start: 05/04/24 09:42 Freq: NEEDED Status: Active Protocol: Document 05/06/24 13:03 KS (Rec: 05/06/24 13:24 KS [id number]) Subjective Physical Therapy Visit Type Type Treatment Note Visit Start Time 13:03 Visit Stop Time 13:16 Number of BUTTER GRADER Visits 3 Physical Therapy Visit Comments Patient Comments Pt reporting increased pain and faitgue this PM. Therapy Pain Assessment Pain When Pain Assessed At Rest Pain Present Pain Present Pain Reported Location hip Scale Used not quantified Pain Behaviors Facial Grimacing,Guarding, Holding Area,Restlessness, Wincing Pain Management Techniques Distraction,Elevation, Modification of Treatment,Re- positioning M4 PT-IP Mobility and Gait Start: 05/04/24 09:42 Freq: NEEDED Status: Active Protocol: Document 05/06/24 13:03 KS (Rec: 05/06/24 13:24 KS [id number]) PT-Bed Mobility Assessment Sit to Supine Sit to Supine Maximum Assistance,1 Person Assistance,Head of Bed Elevated PT-Transfer Assessment Sit to and From Stand Sit to and from Stand Contact Guard Assistance,1 Person Assistance,Use of Upper Extremities Equipment Transfer Assistive Device Gait Belt,Front Wheeled Walker Orthotic/Prosthetic Devices or Brace: No Transfers Transfer Destination Bed Transfer Technique ambulated Transfer Ability Level of Assist Minimal Assistance Comments Mobility Comments Pt not able to improve gait distance due to high reported pain this afternoon. CGA for sit<>stand w/ FWW and CGA to Min A for 15 ft ambulation to other side of bed. Max A for sit<>sup. Pt left in bed w/ all needs in reach and alarm on. Gait Assessment Gait Gait Assistance Required: Contact Guard Assist,Minimum Assistance,1 Person Assist Distance (Feet) 15 Able to Maintain Weight Bearing Status Yes During Gait Assistive Devices Assistive Device Gait Belt,Front Wheeled Walker Orthotic/Prosthetic Devices or Brace: No Gait Deviations General Gait Pattern Antalgic,Decreased Stride Length,Decreased Feet Clearance,Flexed Trunk,Lateral Trunk Lean Factors Limiting Gait Function Factors Limiting Gait Function Decreased Activity Tolerance, Decreased Sensation,Decreased Strength,Incoordination, Limited Range of Motion,Pain, Poor Balance Comments Gait Comments See mobility section. Stair Climbing Assessment Comments Stair Climbing Comments Did not assess PT-Balance Assessment Sitting Balance and Reactions Static Sitting Balance Ability Good Dynamic Sitting Balance Ability Fair Standing Balance and Reactions Static Standing Balance Ability Fair Dynamic Standing Balance Ability Fair Device Used FWW M5 PT-IP Objective Assessments Start: 05/04/24 09:42 Freq: NEEDED Status: Active Protocol: Document 05/04/24 11:30 AB (Rec: 05/04/24 12:58 AB [id number]) Orientation Orientation/Cognition Level of Alertness Alert Orientation Name,Place,Situation Language Function Ability No Deficits Noted Safety Awareness Decreased Safety Awareness Memory Description Short Term Impaired Gross Range of Motion Lower Extremity ROM Assessment Within Functional Limits Strength Lower Extremity Strength Assessment Right Impaired Hip 2+/5 Knee 3+/5 Sensation Assessment Sensation Sensation Description Numbness Comments Sensation Comments has neuropathy on B feet per pt Muscle Tone Muscle Tone WNL Yes M6 PT-IP Treatment Start: 05/04/24 09:42 Freq: NEEDED Status: Active Protocol: Document 05/06/24 13:03 KS (Rec: 05/06/24 13:24 WA [id number]) Physical Therapy Treatment Education Education Provided Precautions,Weight Bearing Status,Post-Op Packet,Safety M7 PT-IP Assessment and Plan Start: 05/04/24 09:42 Freq: NEEDED Status: Active Protocol: Document 05/06/24 13:03 KS (Rec: 05/06/24 13:24 WA [id number]) PT Summary Assessment and Plan Potential Rehabilitation Potential Fair Summary Impairments Pain,ROM,Strength,Balance, Coordination,Sensation,Tone, Cognition,Bed Mobility, Transfers,Gait,Activity Tolerance Progress Towards Goals Slow Progress due to Pain,Slow Progress due to Activity Tolerance Assessment Summary Pt continues to be limited by pain and weakness w/ difficulty performing bed mobility. Treatment cut short this PM due to pain and fatigue. Pt still unable to get out of bed on his own and needs assistance or trapeze which he does not have at home . Pt would benefit from SNF as he has multiple stairs, no lift chair or adjustable bed or trapeze to assist him with getting out of bed and not enough help at home. Goals Bed Mobility Goal Standby Assistance Transfer Goal Standby Assistance,Front Wheeled Walker Gait Goal Standby Assistance,Front Wheel Walker Gait Distance 50 Other Goals improve bed mobility, transfers and ambulation using FWW ~ 100 ft mod I up/down 16 steps L rail + tripod cane SBA Days to Meet Goals 10 Frequency of Treatment Frequency Of Treatment Twice a Day Treatment Plan Physical Therapy Treatment Plan Bed Mobility Training,Transfer Training,Gait Training, Therapeutic Exercise,Balance Retraining,Post Op Education, Discharge Planning,Hot or Cold Pack,Neuromuscular Re-ed, Coordination Retraining,Manual Therapy Precautions Posterior Hip Precautions No Hip Flexion > 90 degrees,No Hip Internal Rotation,No Hip Adduction Weight Bearing Status Weight Bearing Status Weight Bear as Tolerated Allowed Weight Bearing Amount (enter % RLE WBAT or #) (%) Recommendations To Nursing Amount of Assist Needed 1 Person Assist Discharge Recommendations PT Discharge Recommendations SNF Rehab Transportation Needs at Discharge Wheelchair/Cabulance
--- NOTE | 2024-05-06 14:58 | CM.DPNOTE ---
DCP note INVESTOR RELATIONS ASSOCIATE reviewed EMR. Per PT, pt continues to struggle to get OOB. Recommended chair lift for if he were to dc home. INVESTOR RELATIONS ASSOCIATE lvm with Maryuri at [facility], no response. Hope to know more on bed availability/ins auth Tuesday. INVESTOR RELATIONS ASSOCIATE met with pt in room. If no rehab, pt open to HH. No preference on agency. Asked we coordinate with sister. INVESTOR RELATIONS ASSOCIATE called sister Rayna ([phone]). Reports the chair lift place not open on Tuesday. WIll wait to hear back about rehab acceptance before pursing chair. INVESTOR RELATIONS ASSOCIATE encouraged sister to pursue chair lift fist thing tuesday morning. P: Home with sister/friend support with HH (referral needed) vs DC to SNF pending acceptance/auth. CM team will continue to follow closely. ALBIN Pryor
[2024-05-06 19:00] VITALS: BP 103/59; PULSE 85; RESP 20; TEMP 36.7; O2SAT 97
--- NOTE | 2024-05-06 21:38 | PC.NURSE ---
Pt is very upset that he has to have his blood sugar checked ACHS. Educated pt on why he is having his blood sugar checked but is still very agitated and upset.
[2024-05-07] MEDS: ACETAMINOPHEN 325 MG TABLET 650 MG PO ×3 (02:24→15:14)
[2024-05-07] MEDS: HYDROMORPHONE 2 MG TABLET 4 MG PO ×5 (02:25→15:14)
--- NOTE | 2024-05-07 07:10 | P.DS_ITS ---
History of Present Illness History of Present Illness Date Patient Seen: 05/07/24 Time Patient Seen: 07:10 Chief complaint: Right Total Hip Arthroplasty Narrative: Operative Date/Time/Diagnoses Date of procedure: 05/03/24 Time of procedure: 10:30 Pre-op diagnosis: Severe right hip avascular necrosis Post-op diagnosis: same Procedure & Clinicians Procedure: Right total hip arthroplasty posterior approach Same procedure as scheduled: Yes Indications: The patient has had progressively worsening right hip pain with radiographic changes consistent with right hip avascular necrosis and hip arthritis. Non- operative management has failed and the patient has requested total hip replacement. The risks, benefits and alternatives to surgery were discussed with the patient prior to proceeding. Risks discussed included, but were not limited to, failure to relieve pain, leg length discrepancy, dislocation, stiffness, infection, nerve damage, deep venous thrombosis, pulmonary embolism, stroke, coma, heart attack, permanent paralysis and , as well as the potential need for eventual revision of the prosthetic. Surgeon: Katerin Chen Mill Manager: Marty Galvin Anesthesia Type: General and Spinal Operative Notes Findings: Severe right hip about gross and osteoarthritis, adequate stability Closure Type: primary Specimen(s): none sent Prosthetic devices, grafts, tissues, transplants, or devices: [employer] R3 size 56, neutral poly liner, two 6.5 mm screw, Synergy high offset size 12, 36 by +4 Oxinium femoral head Estimated Blood Loss (mL): 250 Blood products transfused: none Discharge Providers Provider Date of admission: 05/03/24 14:03 Discharge Date: 05/07/24 Primary care physician: CATHI Arvizu Consults: 04/25/24 10:33 Consult to Application Manager Routine Comment: Lives w/91 yr old mom - unable to assist w/care DC 05/03/24 09:49 Consult to Anesthesiology Routine Comment: Consulting Provider: Anesthesiologist Reason for consultation: Regional block for post operative pain control 05/03/24 14:29 Consult to Discharge Planning Routine Comment: Consult to Occupational Therapy Evaluate & Treat Comment: Physician Instructions: Evaluate and treat Consult to Physical Therapy Evaluate & Treat Comment: Physician Instructions: post op MARIAM protocol Discharge provider: Connie Nichols PA-C Summary Hospital Course Discharge Diagnosis: Right hip avascular necrosis, s/p right total hip arthroplasty Hospital Course: Mr Quiroz's hospital course was remarkable for poor pain control and slow progress w/ PT. On the morning of POD# 4, it was still unclear from DCP's notes as to whether pt would be going to SNF or home w/ HH services based on insurance auth. Pt was still requiring quite a bit of assistance just to get out of bed. He was eating and voidng without difficulty. His pain was well-controlled w/ APAP, IBPN, oxycodone, and oral hydromorphone. His blood glucose was well- controlled. Exam Vital Signs (past 8 hours): Oxygen Delivery Method Room Air Oxygen Flow Rate 0 Narrative Exam Narrative: 5/5 strength in hip flexors, quadriceps, hamstrings, DF, PF, EHL on right. Sensation to light touch intact throughout RLE. Calf soft and compressible. MAURO dressing functioning, CDI. Objective Labs 05/04/24 06:45 PFSH Medical History History of COVID-19 (2020) Idiopathic aseptic necrosis of femur SUNDAY (obstructive sleep apnea) Nocturia Diabetes Obesity BPH w urinary obs/LUTS Hypertension GERD (gastroesophageal reflux disease) Surgical History (Updated 05/04/24 @ 07:12 by Connie Nichols PA-C) Hx of hernia repair Hx of arthroscopy of right knee History of lumbar discectomy History of tonsillectomy History of carpal tunnel surgery Social History marital status: household members: family occupational status: employed Smoking Status: Never smoker alcohol intake: former caffeine: Yes Discharge Assessment & Plan Assessment and Plan Assessment: Right hip avascular necrosis, s/p right total hip arthroplasty Plan of Treatment: Discharge per CM pending auth. Multimodal pain control, outpt PT, f/u in office as scheduled. Discharge Plan Discharge Plan Patient Disposition: SNF Discharge orders & Medications Prescriptions: New aspirin 81 mg Tablet,Delayed Release (Dr/Ec) 81 mg PO BID Qty: 90 0RF docusate sodium 100 mg Capsule 200 mg PO BID PRN (Reason: constipation) Qty: 60 1RF hydromorphone 2 mg Tablet 4 mg PO Q3H PRN (Reason: Pain, Severe (7-10)) Qty: 20 0RF hydroxyzine HCl 25 mg Tablet 25 mg PO Q6H PRN (Reason: Spasms) Qty: 60 0RF ibuprofen 400 mg Tablet 400 mg PO Q4H PRN (Reason: Pain, Mild (1-3)) Qty: 120 0RF oxycodone 10 mg Tablet 10 mg PO Q4-6H PRN (Reason: pain, moderate) Qty: 30 0RF Continued testosterone 50 mg/5 gram (1 %) gel 1 packet transdermal DAILY olmesartan 20 mg tablet 20 mg PO DAILY Bydureon BCise 2 mg/0.85 mL auto-injector 2 mg SUBCUT QWEEK albuterol sulfate 90 mcg/actuation HFA aerosol inhaler 1 inh inhalation QID PRN (Reason: shortness of breath or wheezing) Qty: 8.5 0RF acetaminophen 500 mg Tablet 975 mg PO DAILY PRN (Reason: Pain) metformin 500 mg tablet extended release 24 hr 1,000 mg PO DAILY Follow up/Referrals: Paola Vargas ARNP [Primary Care Provider] - Katerin Chen MD [Physician] - 05/16/24 1:00 pm (Follow up w/ ANTHONY Barnes, at [facility] office in [place].) Diet/Activity/Treatments Diet: Diet as Tolerated Activity: Weightbearing as tolerated. Posterior hip precautions. Cold/Heat Therapy: Ice to hip as needed for pain. Skin/Wound/Dressing Care Report to your healthcare provider any signs of infection, such as:: chills, fever, night sweats, unusual drainage and unusual redness Dressing: May shower. Leave dressing in place until follow up in office. In 5- 7 days, batteries will , at which point you can cut off the battery pack and dispose of it, but leave the dressing in place. No bathing or otherwise soaking incision. Call the office if the dressing becomes saturated inside. [facility] Rehabilitation [facility] Reason for rehabilitation: Post-operative therapy Rehab type: Physical therapy and Occupational therapy Visit Report/Discharge Packet Instructions: DI for Hip Replacement, DI for Constipation, How to Prevent Falls, DI for Prescription Opioid Use Stand Alone Forms: Patient Portal/API, [facility] MAURO Drain, Surgery Discharge Discharge Data Primary Care Provider: Paola Vargas Quality VTE Deep Vein Thrombosis/Pulmonary Embolism Present on Admission: No
[2024-05-07 08:00] VITALS: BP 124/75; PULSE 75; RESP 16; TEMP 36.3; O2SAT 97
[2024-05-07] MEDS: METFORMIN XR 500 MG TABLET 1000 MG PO (08:28)
[2024-05-07] MEDS: IBUPROFEN 400 MG TABLET PO ×2 (08:29→15:15)
[2024-05-07 08:30] VITALS: BP 124/75; PULSE 75
[2024-05-07] MEDS: ASPIRIN EC 81 MG TABLET PO (08:30)
[2024-05-07] MEDS: LOSARTAN 50 MG TABLET PO (08:30)
[2024-05-07] MEDS: OXYCODONE IR 10 MG TABLET PO ×2 (10:57→16:29)
--- NOTE | 2024-05-07 12:23 | OT.IP.TRT ---
Current Diagnoses Idiopathic aseptic necrosis of right femur (05/03/24) Presence of unspecified artificial hip joint (05/03/24) Surgery Performed Operation Date: 05/03/24 10:45 Actual Procedures p Total Hip Arthroplasty(Right) - Katerin Chen MD Occupational Therapy Treatment Note M2 OT-IP Current Condition Start: 05/03/24 17:05 Freq: Status: Active Protocol: Document 05/03/24 17:05 CCC (Rec: 05/03/24 17:22 [facility] [id number]) Occupational Therapy Current Condition Current Condition Evaluation Date 05/03/24 Treatment Diagnosis S/P R MARIAM posterior approach Diagnosis Onset Date 05/03/24 Post Operative Precautions Posterior Hip Precautions No Hip Flexion > 90 degrees,No Hip Internal Rotation,No Hip Adduction M3 OT- IP Subjective and Pain Start: 05/03/24 17:05 Freq: Status: Active Protocol: Document 05/07/24 16:26 CGR (Rec: 05/07/24 16:33 CGR [id number]) OT- Subjective Occupational Therapy Visit Type Type Treatment Note Visit Start Time 11:49 Visit Stop Time 12:23 Notes partial co-treat with P.T. OT Pain Assessment Pain When Pain Assessed During Mobility Pain Present Pain Present Pain Reported Location right hip Intensity 7 Scale Used Numeric (0 - 10) Management Techniques Modification of Treatment,Re- positioning M4 OT- IP ADL's Start: 05/03/24 17:05 Freq: Status: Active Protocol: Document 05/07/24 16:26 CGR (Rec: 05/07/24 16:33 CGR [id number]) OT [id number] General Evaluation Self-Feeding Ability Independent Comments OT Self-Feeding Comments Pt eating lunch at end of session. OT ADL-Grooming Comments OT Grooming Comments pt declined OT ADL-Oral Care Comments Oral Care Comments pt declined OT ADL-Dressing General Eval Lower Body Dressing Ability Total Assistance Areas Needing Assistance Socks OT ADL-Toileting General Evaluation Toileting Ability Independent Comments OT Toileting Comments seated on toielt OT ADL-Bathing Comments OT Bathing Comments not performed M5 OT- IP IADL's Start: 05/03/24 17:05 Freq: Status: Active Protocol: Document 05/03/24 17:05 CCC (Rec: 05/03/24 17:22 CCC [id number]) OT-Instrumental Activities of Daily Living Deficits IADL Deficits Identified Deficits Home Safety Awareness Awareness of Need for Assistance at Home Good Awareness Home Safety Comments Pt a bit groggy at this time and will need assist for most ADl and mobility needs at this time. Meal Preparation Meal Preparation Caregiver Provides Assist Deckhand Maintenance Deckhand Maintenance Caregiver Provides Assist M6 OT- IP Functional Cognition Start: 05/03/24 17:05 Freq: Status: Active Protocol: Document 05/04/24 17:38 [facility] (Rec: 05/04/24 17:46 [facility] [id number]) Cognitive Factors Limiting Selfcare Function Cognitive Ability Level of Alertness Alert Patient Orientation Name,Place,Situation Attention Span Ability Capable of Focused Attention, Capable of Sustained Attention Ability to Follow Commands Able to Follow One Step Commands Cognitive Comments Cognitive Assessment Comments Pt able to state and follow his hip precautions. Pt having lots of pain and able to talk to pt about his pain and able to open up a little emotionally as pt states his hip pain has limited him for doing thing and getting out of the house. M7 OT- IP Mobility and Balance Start: 05/03/24 17:05 Freq: Status: Active Protocol: Document 05/07/24 16:26 CGR (Rec: 05/07/24 16:33 CGR [id number]) OT- Bed Mobility Assessment Rolling Type of Rolling Roll to Left Level of Assistance Standby Assistance Supine to Sit Supine to Sit Assist Standby Assistance Scooting Scooting to Edge of Bed Standby Assistance OT-Transfer Assessment Sit to and From Stand Sit to and from Stand Standby Assistance Transfers Transfer Ability Standby Assistance Technique Transfer Destination Bed,Chair,Toilet Transfer Technique Stand Step Pivot Devices Transfer Assistive Devices Gait Belt,Front Wheeled Walker Comments Mobility Comments Pt needed max encouragement to get out of the bed without assist. He was unable to get out to his right but was able to get out to his left with extra time. OT- Gait Assessment Gait Gait Assistance Required: Standby Assistance Assistive Devices Assistive Device Gait Belt,Front Wheeled Walker Comments Gait Ability Comments mobility around the room. OT- Balance Assessment Sitting Balance and Reactions Static Sitting Balance Ability Normal Dynamic Sitting Balance Ability Normal M8 OT- IP Objective Assessments Start: 05/03/24 17:05 Freq: Status: Active Protocol: Document 05/03/24 17:05 [facility] (Rec: 05/03/24 17:22 [facility] [id number]) OT Gross Range of Motion Upper Extremity Range of Motion Assessment Within Functional Limits OT Strength Upper Extremity Strength Assessment Within Functional Limits M9 OT- IP Assessment and Plan Start: 05/03/24 17:05 Freq: Status: Active Protocol: Document 05/07/24 16:26 CGR (Rec: 05/07/24 16:33 CGR [id number]) OT Summary Assessment and Plan Potential Rehabilitation Potential Good Analytic Complexity at Evaluation Low Summary OT Impairments Pain,Strength,Balance, Functional Mobility,Grooming, Dressing,Toileting,Bathing, Toilet Transfers,Shower Transfers,Activity Tolerance Progress Towards Goals Progressing Toward Goals,Slow Progress due to Pain Assessment Summary Pt with increased abilities on this date. Pt was able to perform bed mobility with max encouragement and SBA using the gait belt to assist with his RLE going towards his L. Pt then ambulates with SBA around the room and bathroom. Discussed at length with pt and pt's sister that a recliner would be better for sleeping than the bed given the pt's difficulty with getting in and out of the bed. Pt states his mother will be able to bring him food if it is put in the down stairs refrigerator. Pt can stay on the first level. Educated on home safety and use of shower chair. Discussed case with CM requesting home health OT and shower aid. Goals Grooming Goal Independent Dressing Goal Minimal Assistance,Long Handled Shoe Horn,[employer],Sock Aid Toileting Goal Independent Bathing Goal Minimal Assistance Toilet Transfer Goal Independent Shower Transfer Goal Contact Guard Assistance Days to Meet Goals 20 Frequency of Treatment Frequency Of Treatment Once a Day Treatment Plan OT Treatment Plan ADL Training,Functional Mobility,Patient/Family Education,Discharge Planning Other Treatment Recommendations and Next Practice equipment for ADL Treatment Focus needs. Discharge Recommendations OT Discharge Recommendations SNF Rehab Transportation Needs at Discharge Wheelchair/Cabulance
--- NOTE | 2024-05-07 12:49 | PT.IPTN ---
Current Diagnoses Idiopathic aseptic necrosis of right femur (05/03/24) Presence of unspecified artificial hip joint (05/03/24) Surgery Performed Operation Date: 05/03/24 10:45 Actual Procedures p Total Hip Arthroplasty(Right) - Katerin Chen MD Physical Therapy Treatment Note M2 PT-IP Current Condition Start: 05/04/24 09:42 Freq: NEEDED Status: Active Protocol: Document 05/04/24 11:30 AB (Rec: 05/04/24 12:58 AB [id number]) Physical Therapy Current Condition Current Condition Evaluation Date 05/04/24 Treatment Diagnosis s/p R MARIAM posterior; difficulty in walking Onset Date 05/03/24 M3 PT-IP Subjective Start: 05/04/24 09:42 Freq: NEEDED Status: Active Protocol: Document 05/07/24 11:55 MB (Rec: 05/07/24 12:49 MB [id number]) Subjective Physical Therapy Visit Type Type Treatment Note Visit Start Time 11:55 Visit Stop Time 12:05 Number of PAPER DELIVERER Visits 0 Physical Therapy Visit Comments Patient Comments Pt with ongoing c/o increased right hip pain. Therapy Pain Assessment Pain When Pain Assessed During Mobility Pain Present Pain Present Pain Reported Location right hip Intensity 7 M4 PT-IP Mobility and Gait Start: 05/04/24 09:42 Freq: NEEDED Status: Active Protocol: Document 05/07/24 11:55 MB (Rec: 05/07/24 12:49 MB [id number]) PT-Bed Mobility Assessment Supine to Sit Supine to Sit Standby Assistance,1 Person Assistance Scooting Scooting to Edge of Bed Standby Assistance PT-Transfer Assessment Sit to and From Stand Sit to and from Stand Standby Assistance,1 Person Assistance,Use of Upper Extremities Equipment Transfer Assistive Device Gait Belt,Front Wheeled Walker Orthotic/Prosthetic Devices or Brace: No Transfers Transfer Destination Chair,Toilet Transfer Technique Ambulated Transfer Ability Level of Assist Standby Assistance,Contact Guard Assistance,1 Person Assistance Comments Mobility Comments Increased time and cues for bed mobility and gait belt placed around right foot so that pt can use to move leg. Pt states he cannot get OOB to the right after some time and effort and he does better with scooting and getting OOB to the left. Bed flat and cues not to use rails. Gait Assessment Gait Gait Assistance Required: Standby Assistance,Contact Guard Assist Distance (Feet) 25 Able to Maintain Weight Bearing Status Yes During Gait Assistive Devices Assistive Device Gait Belt,Front Wheeled Walker Orthotic/Prosthetic Devices or Brace: No Gait Deviations General Gait Pattern Antalgic,Decreased Stride Length,Decreased Feet Clearance,Flexed Trunk,Lateral Trunk Lean Factors Limiting Gait Function Factors Limiting Gait Function Decreased Activity Tolerance, Decreased Strength,Limited Range of Motion,Pain,Poor Balance Comments Gait Comments Pt gait trains 25' around bed to BR and BR to chair 10' with RW and cues for stepping for proper step-to for forward and backward gait Stair Climbing Assessment Comments Stair Climbing Comments No steps at home PT-Balance Assessment Sitting Balance and Reactions Static Sitting Balance Ability Good Dynamic Sitting Balance Ability Fair Standing Balance and Reactions Static Standing Balance Ability Fair Dynamic Standing Balance Ability Fair Device Used FWW M5 PT-IP Objective Assessments Start: 05/04/24 09:42 Freq: NEEDED Status: Active Protocol: Document 05/04/24 11:30 AB (Rec: 05/04/24 12:58 AB [id number]) Orientation Orientation/Cognition Level of Alertness Alert Orientation Name,Place,Situation Language Function Ability No Deficits Noted Safety Awareness Decreased Safety Awareness Memory Description Short Term Impaired Gross Range of Motion Lower Extremity ROM Assessment Within Functional Limits Strength Lower Extremity Strength Assessment Right Impaired Hip 2+/5 Knee 3+/5 Sensation Assessment Sensation Sensation Description Numbness Comments Sensation Comments has neuropathy on B feet per pt Muscle Tone Muscle Tone WNL Yes M6 PT-IP Treatment Start: 05/04/24 09:42 Freq: NEEDED Status: Active Protocol: Document 05/07/24 11:55 MB (Rec: 05/07/24 12:49 MB [id number]) Physical Therapy Treatment Education Education Provided Precautions,Weight Bearing Status,Post-Op Packet,Safety Other Treatments Other Treatment Performed Verbally reviewed sister THAO nearby for treatment M7 PT-IP Assessment and Plan Start: 05/04/24 09:42 Freq: NEEDED Status: Active Protocol: Document 05/07/24 11:55 MB (Rec: 05/07/24 12:49 MB [id number]) PT Summary Assessment and Plan Potential Rehabilitation Potential Fair Summary Impairments Pain,ROM,Strength,Balance,Bed Mobility,Transfers,Gait, Activity Tolerance Progress Towards Goals Progressing Toward Goals Assessment Summary Brit improves with bed mobility with increased time, VCs and use of gait belt around foot. He is SBA to CGA for transfers and gat with RW. Sister nearby for treatment and she will stay a couple of days at d/c with pt. Goals Bed Mobility Goal Standby Assistance Transfer Goal Standby Assistance,Front Wheeled Walker Gait Goal Standby Assistance,Front Wheel Walker Gait Distance 50 Other Goals improve bed mobility, transfers and ambulation using FWW ~ 100 ft mod I up/down 16 steps L rail + tripod cane SBA Days to Meet Goals 10 Frequency of Treatment Frequency Of Treatment Discharge Treatment Plan Physical Therapy Treatment Plan Bed Mobility Training,Transfer Training,Gait Training, Therapeutic Exercise,Balance Retraining,Post Op Education, Discharge Planning,Hot or Cold Pack,Neuromuscular Re-ed, Coordination Retraining,Manual Therapy Precautions Posterior Hip Precautions No Hip Flexion > 90 degrees,No Hip Internal Rotation,No Hip Adduction Weight Bearing Status Weight Bearing Status Weight Bear as Tolerated Allowed Weight Bearing Amount (enter % RLE WBAT or #) (%) Recommendations To Nursing Amount of Assist Needed 1 Person Assist Discharge Recommendations PT Discharge Recommendations Home with 20/06 Assist Available,Home Health Transportation Needs at Discharge Private Vehicle,Wheelchair/ Cabulance
--- NOTE | 2024-05-07 13:53 | CM.DPNOTE ---
Addendum entered by ALBIN Pryor 05/07/24 16:17: From Chayo at [facility], able to accept. METAL MODEL MAKER updated pt. reported to this METAL MODEL MAKER that sister was on her way to take him home. Updated RN, gathering discharge paperwork to review now. Pt denies other CM needs at this time SL Original Note: DCP Note METAL MODEL MAKER reviewed EMR. Per Maryuri from [facility], both facilities are full and unable to accept pt. METAL MODEL MAKER updated pt and sister, PT/OT in room. PT/OT report pt able to get OOB much better with them today. OT advocated for sister to get a recliner chair for home. METAL MODEL MAKER spoke with Chayo from [facility]- agreed to review for . Will need special auth for his insurance. METAL MODEL MAKER emailed/faxed referral information. METAL MODEL MAKER completed f2f and order. METAL MODEL MAKER met with pt in room. Agreeable to dc home. Report they were hoping for 4pm time, this METAL MODEL MAKER reported to him that's okay. P:anticipate home with sister today at 4pm with [facility] to follow pending acceptance. CM team will continue to follow closely. ALBIN Pryor
--- NOTE | 2024-05-07 17:25 | PC.NURSE ---
Dayshift: Provided pt and sister with discharge education. All questions answered. Belongings with pt. No IV access. Pt verbally expressed frustration d/t [facility] and pain medication. CARLOS Thomas called [facility] to clarify and rectify discharge medication sent to [facility]. Pt escorted via wheelchair by RHODA Diego to exit.
== END 2024-05-07 17:00 | disposition home or self-care (01) ==
LOC: OR 08:47 → AC 12:43
PROVIDERS: Family Provider Nurse Practitioner Family; PCP Registered Nurse; Referring Provider Orthopaedic Surgery; Visit Provider Orthopaedic Surgery
PROC: 0SR90JZ Replacement of Right Hip Joint with Synthetic Substitute, Open Approach (ICD-10-PCS; CPT 27130; principal; 2024-05-03 10:45)
DX: M87.051 Idiopathic aseptic necrosis of right femur (principal); M16.11 Unilateral primary osteoarthritis, right hip; E11.9 Type 2 diabetes mellitus without complications; Z79.84 Long term (current) use of oral hypoglycemic drugs; Z79.85 Long-term (current) use of injectable non-insulin antidiabetic drugs; I10 Essential (primary) hypertension; E66.01 Morbid (severe) obesity due to excess calories; Z68.39 Body mass index [BMI] 39.0-39.9, adult
CPT/HCPCS: 27130; 36415; 72170; 73502; 82962; 85014; 85018; 97116; 97162; 97165; 97530; 97535; C1776; A9270; C9290; J0171; J0690; J1100; J1170; J1885; J2250; J2405; J2704; J3010

== ENCOUNTER → 2024-06-05 16:47 | Outpatient (CLI) | payer MEDICARE, MEDICAID, SELFPAY ==
[2024-05-03 15:35] VITALS: BMI 40.8
[2024-06-06 14:30] LABS: Prostate Specific Antigen 3.11 ng/mL (0.10-4.00)
== END ==
PROVIDERS: Family Provider Nurse Practitioner Family; PCP Registered Nurse; Referring Provider Specialist; Visit Provider Specialist
DX: R97.20 Elevated prostate specific antigen [PSA] (principal)
CPT/HCPCS: 36415; 84153

== ENCOUNTER 2024-08-13 09:45 | Outpatient (RCR) | payer OTHER, MEDICAID, SELFPAY ==
[2024-05-03 15:35] VITALS: BMI 40.8
--- NOTE | 2024-06-25 16:00 | PT.OPPOC ---
Physical, Occupational & Speech Therapy At [facility] Current Diagnoses Unilateral primary osteoarthritis, right hip (06/25/24) Difficulty in walking, not elsewhere classified (06/25/24) Weakness (06/25/24) Presence of unspecified artificial hip joint (06/25/24) Visit Care Team Role Provider Type CATHI Arvizu Primary Care Provider Advanced Electroformer Specialty: Family Practice Address: [facility] [place], [address] Email: [email or web address] NEEL Darling Family Provider Non-Staff Specialty: Medical Address: [address] [place] [address], [place], [address] Email: Katerin Chen MD Attending Provider Physician Referring Provider Specialty: Orthopedics Orthopedic Surgery Address: [address] [place] [address], [id number] Email: [email or web address] Plan Of Care PT-OP-B Current Condition Start: 06/25/24 08:13 Freq: Status: Active Protocol: Document 06/25/24 11:17 SAK (Rec: 06/25/24 12:14 [facility] [id number]) Current Condition History of Current Condition Onset Date 05/03/24 Current Complaints stiffness and weak, difficulty with gait History of Current Condition right MARIAM, posterior precautions, saw Dr. Chen a couple weeks ago and told him he didn't have to follow precautions anymore. NOt taking pain medications. Says not really doing HEP , just doing daily things. Took a long time to get into PT Live in 2 store house, alternating feet on stairs, uses railing. Doesn't tolerate a lot of activity Prior Treatments and Tests x-ray: no problems Future Testing and Treatments Planned Sees Dr. Chen in 1 year Treatment Goals Patient/Caregiver Goals Improve strength and flexibiity to allow him to return to work and all prior activities Prior Functional Status Baseline Function- ADL's Independent Baseline Function- Mobility Independent Baseline Function- Gait Indep, no device Current Functional Impairments (Reported) Functional Limitations- Mobility/Gait uses cane more for looks. in the community, doesn't use at home. Uses motorized cart at grocery store. PT-OP-T Assessment and Plan Start: 06/25/24 08:13 Freq: Status: Active Protocol: Document 06/25/24 11:17 [facility] (Rec: 06/26/24 08:49 [facility] [id number]) Physical Therapy Assessment Goals Three Impairment Balance dysfunction; unable to stand on right leg without UE support, L 2se [facility] Goal (LTG) Patient will be able to stand on right leg for at least 10 sec as measure of improved balance and safety LTG Duration 08/26/24 Two Impairment gait dysfunction Short Term Goal (STG) Patient will demonstrate 50% reduction in lateral lean with gait for improved tolerance of gait in the home and community STG Duration 07/26/24 [facility] Goal (LTG) Patient will be able to walk for at least 15 min without significant gait dysfunction without assistive device to allow him to return to taking walks and being able to walk in grocery store instead of current use of motorized cart. LTG Duration 08/26/24 One Impairment weakness right hip Short Term Goal (STG) Patient to be instructed in individualized, progressive HEP for purposes of right hip and core strengthening STG Duration 07/26/24 [facility] Goal (LTG) Patient to be independent and compliant with HEP and demonstrate improvement in strength to at least 4+/5 all muscle groups right hip and core to allow him to return to prior level of function LTG Duration 08/26/24 Assessment Summary Assessment Patient presents to PT s/p right posterior MARIAM 05/03/24. Patient has not had any PT prior to now. Impairments include hip and core weakness and gait and balance dysfunction. Gait characterized by excess lateral lean royal right greater than left, decreased stance time right. He currently uses motorized cart for grocery shopping due to decreased activity tolerance. Feel he would benefit from PT to address the above goals and help him return to prior level of function, and be able to return to work. Physical Therapy Plan Frequency and Duration Frequency of Treatment 2x/Week Duration of treatment (weeks) 8 Plan of Care Start Date 06/25/24 Plan of Care End Date 08/26/24 Therapeutic Interventions Therapeutic Interventions Gait Training,Home Exercise Program,Manual Therapy, Neuromuscular Re-education, Patient/Caregiver Education, Self-Care/Home Management,Soft Tissue Mobilization, Therapeutic Activities, Therapeutic Exercises Modalities Cold Pack/Ice Massage,Electric Stimulation,Hot Packs, Ultrasound Next Visit Focus/Plan Next Note Type Treatment Note Next Visit Plan REview HEP, further gait training, balance training, and progression of strengthening exercises. Modalities and manual therapy PRN. Plan of Care Dates Plan of Care Start Date 06/25/24 Plan of Care End Date 08/26/24 Electronically Signed by: Leora Holloway, PT 06/26/24 0852 If you are in agreement with this Plan of Care, please return a signed and dated copy. I have reviewed this Plan of Care and certify that the skilled therapy services above are required to meet the patient?s needs. Physician Signature Date Printed Name and Credentials Clinical Instructor Signature Printed Name and Credentials
--- NOTE | 2024-06-25 16:00 | PT.OIE ---
Current Diagnoses Unilateral primary osteoarthritis, right hip (06/25/24) Difficulty in walking, not elsewhere classified (06/25/24) Weakness (06/25/24) Presence of unspecified artificial hip joint (06/25/24) Past Medical History (Last Reviewed 06/12/24 @ 09:16 by Clement Grace MD) BPH w urinary obs/LUTS Diabetes GERD (gastroesophageal reflux disease) History of COVID-19 (2020) Hypertension Idiopathic aseptic necrosis of femur Nocturia Obesity SUNDAY (obstructive sleep apnea) Past Surgical History (Last Reviewed 06/12/24 @ 09:16 by Clement Grace MD) History of carpal tunnel surgery History of lumbar discectomy History of tonsillectomy Hx of arthroscopy of right knee Hx of hernia repair Visit Care Team Role Provider Type CATHI Arvizu Primary Care Provider Advanced Sccm Administrator Specialty: Family Practice Address: [facility]– [place][note 2][address] [place], [place], [facility] Email: [email or web address] Non-Staff Specialty: Medical Address: [address] [place] [address], [id number] Email: Katerin Chen MD Attending Provider Physician Referring Provider Specialty: Orthopedics Orthopedic Surgery Address: [address] [place] [address], [phone] Email: [email or web address] Initial Evaluation PT-OP-A Visit Information Start: 06/25/24 08:13 Freq: Status: Active Protocol: Document 06/25/24 11:17 SAK (Rec: 06/25/24 12:14 SAK [id number]) Out-Patient Physical Therapy Visit Information Visit Information Visit Type Initial Evaluation Visit Start Time 11:18 Visit Stop Time 11:59 Visit Number 1 Precautions Precautions post MARIAM DM well controlled. PT-OP-B Current Condition Start: 06/25/24 08:13 Freq: Status: Active Protocol: Document 06/25/24 11:17 SAK (Rec: 06/25/24 12:14 SAK [id number]) Current Condition History of Current Condition Onset Date 05/03/24 Current Complaints stiffness and weak, difficulty with gait History of Current Condition right MARIAM, posterior precautions, saw Dr. Chen a couple weeks ago and told him he didn't have to follow precautions anymore. NOt taking pain medications. Says not really doing HEP , just doing daily things. Took a long time to get into PT Live in 2 store house, alternating feet on stairs, uses railing. Doesn't tolerate a lot of activity Prior Treatments and Tests x-ray: no problems Future Testing and Treatments Planned Sees Dr. Chen in 1 year Treatment Goals Patient/Caregiver Goals Improve strength and flexibiity to allow him to return to work and all prior activities Prior Functional Status Baseline Function- ADL's Independent Baseline Function- Mobility Independent Baseline Function- Gait Indep, no device Current Functional Impairments (Reported) Functional Limitations- Mobility/Gait uses cane more for looks. in the community, doesn't use at home. Uses motorized cart at grocery store. PT-OP-C Subjective Start: 06/25/24 08:13 Freq: Status: Active Protocol: Document 06/25/24 11:17 [facility] (Rec: 06/25/24 12:14 [facility] [id number]) OP-PT Pain Assessment Pain Assessment Grid Paper Pain Assessment Grid Completed Yes Location right hip Intensity 1 Home Pain Medication Use Pain Medications Used No PT-OP-D Balance Start: 06/25/24 08:13 Freq: Status: Active Protocol: Document 06/25/24 11:17 SAK (Rec: 06/25/24 12:14 [facility] [id number]) OP-PT Balance Assessment Sitting Balance Static Sitting Balance Ability Normal Dynamic Sitting Balance Ability Normal Standing Balance Static Standing Balance Ability Fair Dynamic Standing Balance Ability Poor Balance Tests Single Limb Standing Single Limb- Right 0 Single Limb- Left 2 Dacosta Fall Scale Copyright Permission PT-OP-G Mobility & Gait Start: 06/25/24 08:13 Freq: Status: Active Protocol: Document 06/25/24 11:17 SAK (Rec: 06/26/24 08:49 [facility] [id number]) OP Mobility Evaluation Transfers Sit to Stand indep Functional Movements Squats indep, dec wb R OP Gait Assessment Gait Gait Assistance Required: Independent Assistive Devices Assistive Device Straight Cane Gait Deviations General Gait Pattern Antalgic,Lateral Trunk Lean, Wide Based Gait Comments Gait Comments Trendelenberg type gait royal right greater than left Stair Climbing Evaluation Evaluation Level of Assist On Stairs Independent Devices Stair Climbing Assistive Devices Left Railing,Right Railing Technique/Endurance Stair Climbing Direction Ascend and Descend Stair Climbing Technique Step Over Step PT-OP-H Neuro Start: 06/25/24 08:13 Freq: Status: Active Protocol: Document 06/25/24 11:17 SAK (Rec: 06/26/24 08:49 SAK [id number]) Sensation Evaluation Gross Sensation Gross Sensation WNL PT-OP-J Posture/Palpation/Skin Start: 06/25/24 08:13 Freq: Status: Active Protocol: Document 06/25/24 11:17 SAK (Rec: 06/25/24 12:14 SAK [id number]) Posture Evaluation Position Standing Head/C-Spine Posture Forward Head T-Spine Posture Increased Kyphosis Weight Distribution Weight Shifted Left Palpation Assessment Location scar Palpation Details mild decrease in mobility, well healed, no signs or symptoms of infection Skin Assessment Edema Assessment right hip Edema Degree 1+ Incisional Assessment Incision Appearance/Comments good healing, no signs or symptoms of infection PT-OP-K Range of Motion Start: 06/25/24 08:13 Freq: Status: Active Protocol: Document 06/25/24 11:17 SAK (Rec: 06/25/24 12:14 SAK [id number]) Hip Goniometric Range of Motion Hip left Hip ROM WFL Yes right Hip ROM WFL Yes Knee Goniometric Range of Motion Knee royal Knee ROM WFL Yes PT-OP-M Strength Start: 06/25/24 08:13 Freq: Status: Active Protocol: Document 06/25/24 11:17 SAK (Rec: 06/25/24 12:14 [facility] [id number]) Trunk Strength Trunk Manual Muscle Testing Flexion 2 Poor Extension 2 Poor Core Stabilization poor Hip Strength Hip Manual Muscle Testing Right Flexion (L2) 4 Good Extension (S1) 4- Good- Abduction 4 Good Adduction 3+ Fair+ External Rotation 5 Normal Internal Rotation 5 Normal Left Flexion (L2) 4+ Good+ Extension (S1) 4- Good- Abduction 4+ Good+ Adduction 4+ Good+ External Rotation 4+ Good+ Internal Rotation 4 Good PT-OP-Q Treatments Start: 06/25/24 08:13 Freq: Status: Active Protocol: Document 06/25/24 11:17 SAK (Rec: 06/26/24 08:49 SAK [id number]) Self-Care/Home Management Treatment Education Patient Education Home Exercise Program,Posture Other Education use cane in left hand cane adjusted to correct height for patient PT-OP-T Assessment and Plan Start: 06/25/24 08:13 Freq: Status: Active Protocol: Document 06/25/24 11:17 [facility] (Rec: 06/26/24 08:49 [facility] [id number]) Physical Therapy Assessment Goals Three Impairment Balance dysfunction; unable to stand on right leg without UE support, L 2se Cda Teacher Goal (LTG) Patient will be able to stand on right leg for at least 10 sec as measure of improved balance and safety LTG Duration 08/26/24 Two Impairment gait dysfunction Short Term Goal (STG) Patient will demonstrate 50% reduction in lateral lean with gait for improved tolerance of gait in the home and community STG Duration 07/26/24 Longterm Goal (LTG) Patient will be able to walk for at least 15 min without significant gait dysfunction without assistive device to allow him to return to taking walks and being able to walk in grocery store instead of current use of motorized cart. LTG Duration 08/26/24 One Impairment weakness right hip Short Term Goal (STG) Patient to be instructed in individualized, progressive HEP for purposes of right hip and core strengthening STG Duration 07/26/24 Cda Teacher Goal (LTG) Patient to be independent and compliant with HEP and demonstrate improvement in strength to at least 4+/5 all muscle groups right hip and core to allow him to return to prior level of function LTG Duration 08/26/24 Assessment Summary Assessment Patient presents to PT s/p right posterior MARIAM 05/03/24. Patient has not had any PT prior to now. Impairments include hip and core weakness and gait and balance dysfunction. Gait characterized by excess lateral lean royal right greater than left, decreased stance time right. He currently uses motorized cart for grocery shopping due to decreased activity tolerance. Feel he would benefit from PT to address the above goals and help him return to prior level of function, and be able to return to work. Physical Therapy Plan Frequency and Duration Frequency of Treatment 2x/Week Duration of treatment (weeks) 8 Plan of Care Start Date 06/25/24 Plan of Care End Date 08/26/24 Therapeutic Interventions Therapeutic Interventions Gait Training,Home Exercise Program,Manual Therapy, Neuromuscular Re-education, Patient/Caregiver Education, Self-Care/Home Management,Soft Tissue Mobilization, Therapeutic Activities, Therapeutic Exercises Modalities Cold Pack/Ice Massage,Electric Stimulation,Hot Packs, Ultrasound Next Visit Focus/Plan Next Note Type Treatment Note Next Visit Plan REview HEP, further gait training, balance training, and progression of strengthening exercises. Modalities and manual therapy PRN.
--- NOTE | 2024-06-27 10:31 | PT.OTN ---
Current Diagnoses Unilateral primary osteoarthritis, right hip (06/27/24) Difficulty in walking, not elsewhere classified (06/27/24) Weakness (06/27/24) Presence of unspecified artificial hip joint (06/27/24) Physical Therapy Treatment Note PT-OP-A Visit Information Start: 06/25/24 08:13 Freq: Status: Active Protocol: Document 06/27/24 09:40 SAK (Rec: 06/27/24 10:25 [facility] [id number]) Out-Patient Physical Therapy Visit Information Visit Information Visit Type Treatment Note Visit Start Time 09:45 Visit Number 2 Precautions Precautions post MARIAM DM well controlled. PT-OP-B Current Condition Start: 06/25/24 08:13 Freq: Status: Active Protocol: Document 06/27/24 09:40 SAK (Rec: 06/27/24 10:25 [facility] [id number]) Current Condition History of Current Condition Onset Date 05/03/24 Current Complaints stiffness and weak, difficulty with gait History of Current Condition right MARIAM, posterior precautions, saw Dr. Chen a couple weeks ago and told him he didn't have to follow precautions anymore. NOt taking pain medications. Says not really doing HEP , just doing daily things. Took a long time to get into PT Live in 2 store house, alternating feet on stairs, uses railing. Doesn't tolerate a lot of activity Prior Treatments and Tests x-ray: no problems Future Testing and Treatments Planned Sees Dr. Chen in 1 year Treatment Goals Patient/Caregiver Goals Improve strength and flexibiity to allow him to return to work and all prior activities PT-OP-C Subjective Start: 06/25/24 08:13 Freq: Status: Active Protocol: Document 06/27/24 09:40 SAK (Rec: 06/27/24 10:25 [facility] [id number]) OP-PT Subjective Patient Comments Patient Comments I'm in a piss poor mood today , don't really feel like doing PT. PT-OP-D Balance Start: 06/25/24 08:13 Freq: Status: Active Protocol: Document 06/25/24 11:17 SAK (Rec: 06/25/24 12:14 [facility] [id number]) OP-PT Balance Assessment Sitting Balance Static Sitting Balance Ability Normal Dynamic Sitting Balance Ability Normal Standing Balance Static Standing Balance Ability Fair Dynamic Standing Balance Ability Poor Balance Tests Single Limb Standing Single Limb- Right 0 Single Limb- Left 2 Dacosta Fall Scale Copyright Permission PT-OP-G Mobility & Gait Start: 06/25/24 08:13 Freq: Status: Active Protocol: Document 06/25/24 11:17 SAK (Rec: 06/26/24 08:49 SAK [id number]) OP Mobility Evaluation Transfers Sit to Stand indep Functional Movements Squats indep, dec wb R OP Gait Assessment Gait Gait Assistance Required: Independent Assistive Devices Assistive Device Straight Cane Gait Deviations General Gait Pattern Antalgic,Lateral Trunk Lean, Wide Based Gait Comments Gait Comments Trendelenberg type gait royal right greater than left Stair Climbing Evaluation Evaluation Level of Assist On Stairs Independent Devices Stair Climbing Assistive Devices Left Railing,Right Railing Technique/Endurance Stair Climbing Direction Ascend and Descend Stair Climbing Technique Step Over Step PT-OP-H Neuro Start: 06/25/24 08:13 Freq: Status: Active Protocol: Document 06/25/24 11:17 SAK (Rec: 06/26/24 08:49 SAK [id number]) Sensation Evaluation Gross Sensation Gross Sensation WNL PT-OP-J Posture/Palpation/Skin Start: 06/25/24 08:13 Freq: Status: Active Protocol: Document 06/25/24 11:17 SAK (Rec: 06/25/24 12:14 SAK [id number]) Posture Evaluation Position Standing Head/C-Spine Posture Forward Head T-Spine Posture Increased Kyphosis Weight Distribution Weight Shifted Left Palpation Assessment Location scar Palpation Details mild decrease in mobility, well healed, no signs or symptoms of infection Skin Assessment Edema Assessment right hip Edema Degree 1+ Incisional Assessment Incision Appearance/Comments good healing, no signs or symptoms of infection PT-OP-K Range of Motion Start: 06/25/24 08:13 Freq: Status: Active Protocol: Document 06/25/24 11:17 SAK (Rec: 06/25/24 12:14 SAK [id number]) Hip Goniometric Range of Motion Hip left Hip ROM WFL Yes right Hip ROM WFL Yes Knee Goniometric Range of Motion Knee royal Knee ROM WFL Yes PT-OP-M Strength Start: 06/25/24 08:13 Freq: Status: Active Protocol: Document 06/25/24 11:17 SAK (Rec: 06/25/24 12:14 SAK [id number]) Trunk Strength Trunk Manual Muscle Testing Flexion 2 Poor Extension 2 Poor Core Stabilization poor Hip Strength Hip Manual Muscle Testing Right Flexion (L2) 4 Good Extension (S1) 4- Good- Abduction 4 Good Adduction 3+ Fair+ External Rotation 5 Normal Internal Rotation 5 Normal Left Flexion (L2) 4+ Good+ Extension (S1) 4- Good- Abduction 4+ Good+ Adduction 4+ Good+ External Rotation 4+ Good+ Internal Rotation 4 Good PT-OP-Q Treatments Start: 06/25/24 08:13 Freq: Status: Active Protocol: Document 06/27/24 09:40 [facility] (Rec: 06/27/24 10:25 [facility] [id number]) Cardio Equipment Recumbent Stepper (Sci-Fit) Duration (Minutes) 5 Resistance 1 Seat Position 13 Gym Equipment Shuttle Recovery Unilateral Squats Resistance 37 Shuttle Recovery Platform Stable Reps/Time 10x2 Bilateral Squats Resistance 50 Shuttle Recovery Platform Stable Reps/Time 10x2 Gait Training Gait Activity 3 Description backward Level of Assistance SBA, cues Surface firm Distance/Duration 10 ft x 2 Treatment Focus glut max strengthening, balance 2 Description sidestepping Level of Assistance SBA, cues Surface firm Distance/Duration 10 ft x 2 Treatment Focus glut med strengthening, balance Comments cues for neutral LE alignment 1 Description forward Level of Assistance SBA, cues Surface firm Distance/Duration 10 ft x 4 Treatment Focus decreased lateral sway Comments improved gait with use of mirror Self-Care/Home Management Treatment Education Patient Education Home Exercise Program,Posture Other Education importance of neutral alignment, decreased lateral sway PT-OP-R Modalities Start: 06/25/24 08:13 Freq: Status: Active Protocol: Document 06/27/24 09:40 [facility] (Rec: 06/27/24 10:30 [facility] [id number]) Electric Stimulation Electric Stimulation Interferential Current (IFC) Body Location right hip Intensity 18 Target/Sweep Sweep Combined With Heat/Cold Hot Pack PT-OP-T Assessment and Plan Start: 06/25/24 08:13 Freq: Status: Active Protocol: Document 06/27/24 09:40 [facility] (Rec: 06/27/24 10:25 [facility] [id number]) Physical Therapy Assessment Goals Three Impairment Balance dysfunction; unable to stand on right leg without UE support, L 2se Mcc Goal (LTG) Patient will be able to stand on right leg for at least 10 sec as measure of improved balance and safety LTG Duration 08/26/24 Two Impairment gait dysfunction Short Term Goal (STG) Patient will demonstrate 50% reduction in lateral lean with gait for improved tolerance of gait in the home and community STG Duration 07/26/24 Mcc Goal (LTG) Patient will be able to walk for at least 15 min without significant gait dysfunction without assistive device to allow him to return to taking walks and being able to walk in grocery store instead of current use of motorized cart. LTG Duration 08/26/24 One Impairment weakness right hip Short Term Goal (STG) Patient to be instructed in individualized, progressive HEP for purposes of right hip and core strengthening STG Duration 07/26/24 Mcc Goal (LTG) Patient to be independent and compliant with HEP and demonstrate improvement in strength to at least 4+/5 all muscle groups right hip and core to allow him to return to prior level of function LTG Duration 08/26/24 Assessment Summary Assessment encouragement needed for patient to participate in therapy today, able to improve gait quality with use of mirror. Good tolerance for Sci-Fit and shuttle leg press. Physical Therapy Plan Frequency and Duration Frequency of Treatment 2x/Week Duration of treatment (weeks) 8 Plan of Care Start Date 06/25/24 Plan of Care End Date 08/26/24 Therapeutic Interventions Therapeutic Interventions Gait Training,Home Exercise Program,Manual Therapy, Neuromuscular Re-education, Patient/Caregiver Education, Self-Care/Home Management,Soft Tissue Mobilization, Therapeutic Activities, Therapeutic Exercises Modalities Cold Pack/Ice Massage,Electric Stimulation,Hot Packs, Ultrasound Next Visit Focus/Plan Next Note Type Treatment Note Next Visit Plan Continue strengthening, gait training, balance retraining.
--- NOTE | 2024-07-02 12:55 | PT.OTN ---
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 PT-OP-B Current Condition Start: 06/25/24 08:13 Freq: Status: Active Protocol: Document 06/27/24 09:40 SAK (Rec: 06/27/24 10:25 SAK [id number]) Current Condition History of Current Condition Onset Date 05/03/24 Current Complaints stiffness and weak, difficulty with gait History of Current Condition right MARIAM, posterior precautions, saw Dr. Chen a couple weeks ago and told him he didn't have to follow precautions anymore. NOt taking pain medications. Says not really doing HEP , just doing daily things. Took a long time to get into PT Live in 2 store house, alternating feet on stairs, uses railing. Doesn't tolerate a lot of activity Prior Treatments and Tests x-ray: no problems Future Testing and Treatments Planned Sees Dr. Chen in 1 year Treatment Goals Patient/Caregiver Goals Improve strength and flexibiity to allow him to return to work and all prior activities PT-OP-C Subjective Start: 06/25/24 08:13 Freq: Status: Active Protocol: Document 07/02/24 09:04 AB (Rec: 07/02/24 10:30 AB [id number]) OP-PT Subjective Patient Comments Patient Comments Patient reports no hip pain, rates back pain 4/10. single leg stance 2 sec X 3 right LE. Patient reports he was told he does not have to follow precautions by MD, will see MD in a year, and was advised not to fall. PT-OP-D Balance Start: 06/25/24 08:13 Freq: Status: Active Protocol: Document 06/25/24 11:17 SAK (Rec: 06/25/24 12:14 [facility] [id number]) OP-PT Balance Assessment Sitting Balance Static Sitting Balance Ability Normal Dynamic Sitting Balance Ability Normal Standing Balance Static Standing Balance Ability Fair Dynamic Standing Balance Ability Poor Balance Tests Single Limb Standing Single Limb- Right 0 Single Limb- Left 2 D[place]osta Fall Scale Copyright Permission PT-OP-G Mobility & Gait Start: 06/25/24 08:13 Freq: Status: Active Protocol: Document 06/25/24 11:17 [facility] (Rec: 06/26/24 08:49 [facility] [id number]) OP Mobility Evaluation Transfers Sit to Stand indep Functional Movements Squats indep, dec wb R OP Gait Assessment Gait Gait Assistance Required: Independent Assistive Devices Assistive Device Straight Cane Gait Deviations General Gait Pattern Antalgic,Lateral Trunk Lean, Wide Based Gait Comments Gait Comments Trendelenberg type gait royal right greater than left Stair Climbing Evaluation Evaluation Level of Assist On Stairs Independent Devices Stair Climbing Assistive Devices Left Railing,Right Railing Technique/Endurance Stair Climbing Direction Ascend and Descend Stair Climbing Technique Step Over Step PT-OP-H Neuro Start: 06/25/24 08:13 Freq: Status: Active Protocol: Document 06/25/24 11:17 MARY (Rec: 06/26/24 08:49 [facility] [id number]) Sensation Evaluation Gross Sensation Gross Sensation WNL PT-OP-J Posture/Palpation/Skin Start: 06/25/24 08:13 Freq: Status: Active Protocol: Document 06/25/24 11:17 MARY (Rec: 06/25/24 12:14 [facility] [id number]) Posture Evaluation Position Standing Head/C-Spine Posture Forward Head T-Spine Posture Increased Kyphosis Weight Distribution Weight Shifted Left Palpation Assessment Location scar Palpation Details mild decrease in mobility, well healed, no signs or symptoms of infection Skin Assessment Edema Assessment right hip Edema Degree 1+ Incisional Assessment Incision Appearance/Comments good healing, no signs or symptoms of infection PT-OP-K Range of Motion Start: 06/25/24 08:13 Freq: Status: Active Protocol: Document 06/25/24 11:17 MARY (Rec: 06/25/24 12:14 [facility] [id number]) Hip Goniometric Range of Motion Hip left Hip ROM WFL Yes right Hip ROM WFL Yes Knee Goniometric Range of Motion Knee royal Knee ROM WFL Yes PT-OP-M Strength Start: 06/25/24 08:13 Freq: Status: Active Protocol: Document 06/25/24 11:17 SAK (Rec: 06/25/24 12:14 SAK [id number]) Trunk Strength Trunk Manual Muscle Testing Flexion 2 Poor Extension 2 Poor Core Stabilization poor Hip Strength Hip Manual Muscle Testing Right Flexion (L2) 4 Good Extension (S1) 4- Good- Abduction 4 Good Adduction 3+ Fair+ External Rotation 5 Normal Internal Rotation 5 Normal Left Flexion (L2) 4+ Good+ Extension (S1) 4- Good- Abduction 4+ Good+ Adduction 4+ Good+ External Rotation 4+ Good+ Internal Rotation 4 Good PT-OP-Q Treatments Start: 06/25/24 08:13 Freq: Status: Active Protocol: Document 07/02/24 09:04 AB (Rec: 07/02/24 10:30 AB [id number]) Gym Equipment Shuttle Balance red Details NBOS Therapeutic Exercises Supine Exercises SLR Reps/Minutes X15 Sitting Exercises seated hip abduction with band Resistance level 4 blue band Reps/Minutes one minute X 1 then X 10 X 3 without hold Standing Exercises side stepping with band Side bilateral Resistance level 4 band Reps/Minutes 1-2 min Comments verbal cues to avoid toeing out Neuro Re-Education Treatment Balance Activities marching Surface blue cusion Reps/Duration X12 Comments CGA hands above bars step up taps Reps/Duration X12 Comments CGA hands above bars Tandem Reps/Duration 10 feet X 5 Comments hands above bars CGA retro Reps/Duration 10 feet X 2 and 4 feet X 1 Comments CGA hands above bars PT-OP-R Modalities Start: 06/25/24 08:13 Freq: Status: Active Protocol: Document 07/02/24 09:04 AB (Rec: 07/02/24 10:30 AB [id number]) Electric Stimulation Electric Stimulation Interferential Current (IFC) Body Location right hip Intensity 16 Target/Sweep Sweep Combined With Heat/Cold Hot Pack PT-OP-T Assessment and Plan Start: 06/25/24 08:13 Freq: Status: Active Protocol: Document 07/02/24 09:04 AB (Rec: 07/02/24 10:30 AB [id number]) Physical Therapy Assessment Goals Three Impairment Balance dysfunction; unable to stand on right leg without UE support, L 2se Ch[facility] Goal (LTG) Patient will be able to stand on right leg for at least 10 sec as measure of improved balance and safety LTG Duration 08/26/24 Two Impairment gait dysfunction Short Term Goal (STG) Patient will demonstrate 50% reduction in lateral lean with gait for improved tolerance of gait in the home and community STG Duration 07/26/24 Chcf Goal (LTG) Patient will be able to walk for at least 15 min without significant gait dysfunction without assistive device to allow him to return to taking walks and being able to walk in grocery store instead of current use of motorized cart. LTG Duration 08/26/24 One Impairment weakness right hip Short Term Goal (STG) Patient to be instructed in individualized, progressive HEP for purposes of right hip and core strengthening STG Duration 07/26/24 [facility] Goal (LTG) Patient to be independent and compliant with HEP and demonstrate improvement in strength to at least 4+/5 all muscle groups right hip and core to allow him to return to prior level of function LTG Duration 08/26/24 Assessment Summary Assessment Patient into session reporting his knee may have been injured when he hurt his hip, but he didn't mention it to MD . Patient into session with 2 sec SLS left LE, increased scuffing foot when stepping backwards. Physical Therapy Plan Frequency and Duration Frequency of Treatment 2x/Week Duration of treatment (weeks) 8 Plan of Care Start Date 06/25/24 Plan of Care End Date 08/26/24 Next Visit Focus/Plan Next Note Type Treatment Note Next Visit Plan Continue strengthening, gait training, balance retraining.
--- NOTE | 2024-07-04 14:11 | PT.OTN ---
Current Diagnoses Unilateral primary osteoarthritis, right hip (07/04/24) Difficulty in walking, not elsewhere classified (07/04/24) Weakness (07/04/24) Presence of unspecified artificial hip joint (07/04/24) Physical Therapy Treatment Note PT-OP-A Visit Information Start: 06/25/24 08:13 Freq: Status: Active Protocol: Document 07/04/24 08:11 AB (Rec: 07/04/24 09:47 AB [id number]) Out-Patient Physical Therapy Visit Information Visit Information Visit Type Treatment Note Visit Note Access Code [id number] Visit Start Time 09:03 Visit Stop Time 09:51 Visit Number 4 Number of ROLL UP OPERATOR Visits 2 Precautions Precautions post MARIAM DM well controlled. PT-OP-B Current Condition Start: 06/25/24 08:13 Freq: Status: Active Protocol: Document 06/27/24 09:40 SAK (Rec: 06/27/24 10:25 SAK [id number]) Current Condition History of Current Condition Onset Date 05/03/24 Current Complaints stiffness and weak, difficulty with gait History of Current Condition right MARIAM, posterior precautions, saw Dr. Chen a couple weeks ago and told him he didn't have to follow precautions anymore. NOt taking pain medications. Says not really doing HEP , just doing daily things. Took a long time to get into PT Live in 2 store house, alternating feet on stairs, uses railing. Doesn't tolerate a lot of activity Prior Treatments and Tests x-ray: no problems Future Testing and Treatments Planned Sees Dr. Chen in 1 year Treatment Goals Patient/Caregiver Goals Improve strength and flexibiity to allow him to return to work and all prior activities PT-OP-C Subjective Start: 06/25/24 08:13 Freq: Status: Active Protocol: Document 07/04/24 08:11 AB (Rec: 07/04/24 09:47 AB [id number]) OP-PT Subjective Patient Comments Patient Comments Patient reports he was fine post previous session. No complaints of pain right LE start of session. SLS right LE without UE use 2,2,4 seconds. PT-OP-D Balance Start: 06/25/24 08:13 Freq: Status: Active Protocol: Document 06/25/24 11:17 SAK (Rec: 06/25/24 12:14 SAK [id number]) OP-PT Balance Assessment Sitting Balance Static Sitting Balance Ability Normal Dynamic Sitting Balance Ability Normal Standing Balance Static Standing Balance Ability Fair Dynamic Standing Balance Ability Poor Balance Tests Single Limb Standing Single Limb- Right 0 Single Limb- Left 2 [place]osta Fall Scale Copyright Permission PT-OP-G Mobility & Gait Start: 06/25/24 08:13 Freq: Status: Active Protocol: Document 06/25/24 11:17 SAK (Rec: 06/26/24 08:49 SAK [id number]) OP Mobility Evaluation Transfers Sit to Stand indep Functional Movements Squats indep, dec wb R OP Gait Assessment Gait Gait Assistance Required: Independent Assistive Devices Assistive Device Straight Cane Gait Deviations General Gait Pattern Antalgic,Lateral Trunk Lean, Wide Based Gait Comments Gait Comments Trendelenberg type gait royal right greater than left Stair Climbing Evaluation Evaluation Level of Assist On Stairs Independent Devices Stair Climbing Assistive Devices Left Railing,Right Railing Technique/Endurance Stair Climbing Direction Ascend and Descend Stair Climbing Technique Step Over Step PT-OP-H Neuro Start: 06/25/24 08:13 Freq: Status: Active Protocol: Document 06/25/24 11:17 SAK (Rec: 06/26/24 08:49 [facility] [id number]) Sensation Evaluation Gross Sensation Gross Sensation WNL PT-OP-J Posture/Palpation/Skin Start: 06/25/24 08:13 Freq: Status: Active Protocol: Document 06/25/24 11:17 SAK (Rec: 06/25/24 12:14 [facility] [id number]) Posture Evaluation Position Standing Head/C-Spine Posture Forward Head T-Spine Posture Increased Kyphosis Weight Distribution Weight Shifted Left Palpation Assessment Location scar Palpation Details mild decrease in mobility, well healed, no signs or symptoms of infection Skin Assessment Edema Assessment right hip Edema Degree 1+ Incisional Assessment Incision Appearance/Comments good healing, no signs or symptoms of infection PT-OP-K Range of Motion Start: 06/25/24 08:13 Freq: Status: Active Protocol: Document 06/25/24 11:17 SAK (Rec: 06/25/24 12:14 [facility] [id number]) Hip Goniometric Range of Motion Hip left Hip ROM WFL Yes right Hip ROM WFL Yes Knee Goniometric Range of Motion Knee royal Knee ROM WFL Yes PT-OP-M Strength Start: 06/25/24 08:13 Freq: Status: Active Protocol: Document 06/25/24 11:17 SAK (Rec: 06/25/24 12:14 SAK [id number]) Trunk Strength Trunk Manual Muscle Testing Flexion 2 Poor Extension 2 Poor Core Stabilization poor Hip Strength Hip Manual Muscle Testing Right Flexion (L2) 4 Good Extension (S1) 4- Good- Abduction 4 Good Adduction 3+ Fair+ External Rotation 5 Normal Internal Rotation 5 Normal Left Flexion (L2) 4+ Good+ Extension (S1) 4- Good- Abduction 4+ Good+ Adduction 4+ Good+ External Rotation 4+ Good+ Internal Rotation 4 Good PT-OP-Q Treatments Start: 06/25/24 08:13 Freq: Status: Active Protocol: Document 07/04/24 08:11 AB (Rec: 07/04/24 09:47 AB [id number]) Therapeutic Exercises Supine Exercises SLR Reps/Minutes X15 Sitting Exercises seated hip abduction with band Resistance level 4 blue band Reps/Minutes one minute X 1 then X 10 X 3 without hold Standing Exercises sit to stand with band Side bilateral Resistance level 4 band Reps/Minutes X10 X 2 Comments Verbal cues to keep tension on band and monitored for pain side stepping with band Standing Exercise Name mini squat position with UE use Side bilateral Resistance level 4 band Reps/Minutes 10 feet X 3 left and right Comments verbal cues to avoid toeing out Neuro Re-Education Treatment Balance Activities Hurdles Details CGA hands above bars Reps/Duration 10 feet X4 SLS Details cga without UE use Reps/Duration X3 marching Surface blue cushion Reps/Duration X12 Comments CGA hands above bars step up taps Reps/Duration X12 Comments CGA hands above bars Tandem Reps/Duration 10 feet X 6 Comments hands above bars CGA with head turns and visual scanning on final 2 rounds. PT-OP-R Modalities Start: 06/25/24 08:13 Freq: Status: Active Protocol: Document 07/04/24 08:11 AB (Rec: 07/04/24 09:47 AB [id number]) Electric Stimulation Electric Stimulation Interferential Current (IFC) Body Location right hip Intensity 14 Target/Sweep Sweep Combined With Heat/Cold Hot Pack PT-OP-T Assessment and Plan Start: 06/25/24 08:13 Freq: Status: Active Protocol: Document 07/04/24 08:11 AB (Rec: 07/04/24 09:47 AB [id number]) Physical Therapy Assessment Goals Three Impairment Balance dysfunction; unable to stand on right leg without UE support, L 2se Logistics Analyst Goal (LTG) Patient will be able to stand on right leg for at least 10 sec as measure of improved balance and safety LTG Duration 08/26/24 Two Impairment gait dysfunction Short Term Goal (STG) Patient will demonstrate 50% reduction in lateral lean with gait for improved tolerance of gait in the home and community STG Duration 07/26/24 Logistics Analyst Goal (LTG) Patient will be able to walk for at least 15 min without significant gait dysfunction without assistive device to allow him to return to taking walks and being able to walk in grocery store instead of current use of motorized cart. LTG Duration 08/26/24 One Impairment weakness right hip Short Term Goal (STG) Patient to be instructed in individualized, progressive HEP for purposes of right hip and core strengthening STG Duration 07/26/24 Logistics Analyst Goal (LTG) Patient to be independent and compliant with HEP and demonstrate improvement in strength to at least 4+/5 all muscle groups right hip and core to allow him to return to prior level of function LTG Duration 08/26/24 Assessment Summary Assessment SLS right LE without UE use continues to be limited. Patient into session with reports of not performing HEP, and has been advised of importance of HEP for functional outcome/decreased limp/gait deviation. Physical Therapy Plan Frequency and Duration Frequency of Treatment 2x/Week Duration of treatment (weeks) 8 Plan of Care Start Date 06/25/24 Plan of Care End Date 08/26/24 Next Visit Focus/Plan Next Note Type Treatment Note Next Visit Plan Continue strengthening, gait training, balance retraining.
--- NOTE | 2024-07-12 15:27 | PT.OTN ---
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 PT-OP-B Current Condition Start: 06/25/24 08:13 Freq: Status: Active Protocol: Document 06/27/24 09:40 SAK (Rec: 06/27/24 10:25 SAK [id number]) Current Condition History of Current Condition Onset Date 05/03/24 Current Complaints stiffness and weak, difficulty with gait History of Current Condition right MARIAM, posterior precautions, saw Dr. Chen a couple weeks ago and told him he didn't have to follow precautions anymore. NOt taking pain medications. Says not really doing HEP , just doing daily things. Took a long time to get into PT Live in 2 store house, alternating feet on stairs, uses railing. Doesn't tolerate a lot of activity Prior Treatments and Tests x-ray: no problems Future Testing and Treatments Planned Sees Dr. Chen in 1 year Treatment Goals Patient/Caregiver Goals Improve strength and flexibiity to allow him to return to work and all prior activities PT-OP-C Subjective Start: 06/25/24 08:13 Freq: Status: Active Protocol: Document 07/12/24 12:58 SW (Rec: 07/12/24 15:25 SW [id number]) OP-PT Subjective Patient Comments Patient Comments Reports stiffness, difficulty tying shoes. Pt reports has not been compliant with HEP. Pt feels tired today, thought 1 pm time would better. Requesting electrical stimulation only today, declining participation in therex today. PT-OP-D Balance Start: 06/25/24 08:13 Freq: Status: Active Protocol: Document 06/25/24 11:17 SAK (Rec: 06/25/24 12:14 SAK [id number]) OP-PT Balance Assessment Sitting Balance Static Sitting Balance Ability Normal Dynamic Sitting Balance Ability Normal Standing Balance Static Standing Balance Ability Fair Dynamic Standing Balance Ability Poor Balance Tests Single Limb Standing Single Limb- Right 0 Single Limb- Left 2 [place] Fall Scale Copyright Permission PT-OP-G Mobility & Gait Start: 06/25/24 08:13 Freq: Status: Active Protocol: Document 06/25/24 11:17 [facility] (Rec: 06/26/24 08:49 [facility] [id number]) OP Mobility Evaluation Transfers Sit to Stand indep Functional Movements Squats indep, dec wb R OP Gait Assessment Gait Gait Assistance Required: Independent Assistive Devices Assistive Device Straight Cane Gait Deviations General Gait Pattern Antalgic,Lateral Trunk Lean, Wide Based Gait Comments Gait Comments Trendelenberg type gait royal right greater than left Stair Climbing Evaluation Evaluation Level of Assist On Stairs Independent Devices Stair Climbing Assistive Devices Left Railing,Right Railing Technique/Endurance Stair Climbing Direction Ascend and Descend Stair Climbing Technique Step Over Step PT-OP-H Neuro Start: 06/25/24 08:13 Freq: Status: Active Protocol: Document 06/25/24 11:17 [facility] (Rec: 06/26/24 08:49 [facility] [id number]) Sensation Evaluation Gross Sensation Gross Sensation WNL PT-OP-J Posture/Palpation/Skin Start: 06/25/24 08:13 Freq: Status: Active Protocol: Document 06/25/24 11:17 [facility] (Rec: 06/25/24 12:14 [facility] [id number]) Posture Evaluation Position Standing Head/C-Spine Posture Forward Head T-Spine Posture Increased Kyphosis Weight Distribution Weight Shifted Left Palpation Assessment Location scar Palpation Details mild decrease in mobility, well healed, no signs or symptoms of infection Skin Assessment Edema Assessment right hip Edema Degree 1+ Incisional Assessment Incision Appearance/Comments good healing, no signs or symptoms of infection PT-OP-K Range of Motion Start: 06/25/24 08:13 Freq: Status: Active Protocol: Document 06/25/24 11:17 SAK (Rec: 06/25/24 12:14 [facility] [id number]) Hip Goniometric Range of Motion Hip left Hip ROM WFL Yes right Hip ROM WFL Yes Knee Goniometric Range of Motion Knee royal Knee ROM WFL Yes PT-OP-M Strength Start: 06/25/24 08:13 Freq: Status: Active Protocol: Document 06/25/24 11:17 SAK (Rec: 06/25/24 12:14 SAK [id number]) Trunk Strength Trunk Manual Muscle Testing Flexion 2 Poor Extension 2 Poor Core Stabilization poor Hip Strength Hip Manual Muscle Testing Right Flexion (L2) 4 Good Extension (S1) 4- Good- Abduction 4 Good Adduction 3+ Fair+ External Rotation 5 Normal Internal Rotation 5 Normal Left Flexion (L2) 4+ Good+ Extension (S1) 4- Good- Abduction 4+ Good+ Adduction 4+ Good+ External Rotation 4+ Good+ Internal Rotation 4 Good PT-OP-Q Treatments Start: 06/25/24 08:13 Freq: Status: Active Protocol: Document 07/12/24 12:58 SW (Rec: 07/12/24 15:25 SW [id number]) Manual Therapy Treatment Consent Patient gave verbal consent for manual Yes treatment Soft Tissue Mobilization Scar mobilization Body Location R hip Intensity/Depth Moderate Body Position sidelying with pillow between knees Manual Techniques PROM/AAROM Type ROM Body Location RLE Body Position Supine Comments mindful of post op hip precautions Self-Care/Home Management Treatment Education Patient Education Home Exercise Program Other Education HEP, Pt education on movement and effects of movement for circulation and recovery to reduce stiffness. PT-OP-R Modalities Start: 06/25/24 08:13 Freq: Status: Active Protocol: Document 07/12/24 12:58 SW (Rec: 07/12/24 15:27 SW [id number]) Electric Stimulation Electric Stimulation Interferential Current (IFC) Body Location right hip Intensity 16 Target/Sweep Sweep Combined With Heat/Cold Hot Pack PT-OP-T Assessment and Plan Start: 06/25/24 08:13 Freq: Status: Active Protocol: Document 07/12/24 12:58 SW (Rec: 07/12/24 15:25 SW [id number]) Physical Therapy Assessment Goals Three Impairment Balance dysfunction; unable to stand on right leg without UE support, L 2se News Video Editor Goal (LTG) Patient will be able to stand on right leg for at least 10 sec as measure of improved balance and safety LTG Duration 08/26/24 Two Impairment gait dysfunction Short Term Goal (STG) Patient will demonstrate 50% reduction in lateral lean with gait for improved tolerance of gait in the home and community STG Duration 07/26/24 News Video Editor Goal (LTG) Patient will be able to walk for at least 15 min without significant gait dysfunction without assistive device to allow him to return to taking walks and being able to walk in grocery store instead of current use of motorized cart. LTG Duration 08/26/24 One Impairment weakness right hip Short Term Goal (STG) Patient to be instructed in individualized, progressive HEP for purposes of right hip and core strengthening STG Duration 07/26/24 News Video Editor Goal (LTG) Patient to be independent and compliant with HEP and demonstrate improvement in strength to at least 4+/5 all muscle groups right hip and core to allow him to return to prior level of function LTG Duration 08/26/24 Assessment Summary Assessment Pt declined participation in therex today due to motivation and feeling tired. Pt requested electrical stimulation, administered for mm relaxation and initiated manual therapy today to decrease stiffness, and increase ROM for carryover into gait. Pt reports feeling less stiff with ROM. Pt education on the effects of movement for circulation and recovery. Plan to follow up and progress to HEP review and therex toward pt goals as able next session. Physical Therapy Plan Frequency and Duration Frequency of Treatment 2x/Week Duration of treatment (weeks) 8 Plan of Care Start Date 06/25/24 Plan of Care End Date 08/26/24 Therapeutic Interventions Therapeutic Interventions Gait Training,Home Exercise Program,Manual Therapy, Neuromuscular Re-education, Patient/Caregiver Education, Self-Care/Home Management,Soft Tissue Mobilization, Therapeutic Activities, Therapeutic Exercises Modalities Cold Pack/Ice Massage,Electric Stimulation,Hot Packs, Ultrasound Next Visit Focus/Plan Next Note Type Treatment Note Next Visit Plan Continue strengthening, gait training, balance retraining.
--- NOTE | 2024-08-13 10:33 | PT.OTN ---
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 PT-OP-B Current Condition Start: 06/25/24 08:13 Freq: Status: Active Protocol: Document 08/13/24 09:47 SAK (Rec: 08/13/24 10:33 [facility] [id number]) Current Condition History of Current Condition Onset Date 05/03/24 Current Complaints stiffness and weak, difficulty with gait History of Current Condition right MARAIM, posterior precautions, saw Dr. Chen a couple weeks ago and told him he didn't have to follow precautions anymore. NOt taking pain medications. Says not really doing HEP , just doing daily things. Took a long time to get into PT Live in 2 store house, alternating feet on stairs, uses railing. Doesn't tolerate a lot of activity Prior Treatments and Tests x-ray: no problems Future Testing and Treatments Planned Sees Dr. Chen in 1 year PT-OP-C Subjective Start: 06/25/24 08:13 Freq: Status: Active Protocol: Document 08/13/24 09:47 SAK (Rec: 08/13/24 10:33 [facility] [id number]) OP-PT Subjective Patient Comments Patient Comments Hasn't done any of his HEP, I 'm not a very good patient. Tying his shoes is getting easier. Walking without assistive device, agrees his excess side to side movement with gait is mostly habit. PT-OP-D Balance Start: 06/25/24 08:13 Freq: Status: Active Protocol: Document 06/25/24 11:17 SAK (Rec: 06/25/24 12:14 SAK [id number]) OP-PT Balance Assessment Sitting Balance Static Sitting Balance Ability Normal Dynamic Sitting Balance Ability Normal Standing Balance Static Standing Balance Ability Fair Dynamic Standing Balance Ability Poor Balance Tests Single Limb Standing Single Limb- Right 0 Single Limb- Left 2 [place] Fall Scale Copyright Permission PT-OP-G Mobility & Gait Start: 06/25/24 08:13 Freq: Status: Active Protocol: Document 06/25/24 11:17 SAK (Rec: 06/26/24 08:49 SAK [id number]) OP Mobility Evaluation Transfers Sit to Stand indep Functional Movements Squats indep, dec wb R OP Gait Assessment Gait Gait Assistance Required: Independent Assistive Devices Assistive Device Straight Cane Gait Deviations General Gait Pattern Antalgic,Lateral Trunk Lean, Wide Based Gait Comments Gait Comments Trendelenberg type gait royal right greater than left Stair Climbing Evaluation Evaluation Level of Assist On Stairs Independent Devices Stair Climbing Assistive Devices Left Railing,Right Railing Technique/Endurance Stair Climbing Direction Ascend and Descend Stair Climbing Technique Step Over Step PT-OP-H Neuro Start: 06/25/24 08:13 Freq: Status: Active Protocol: Document 06/25/24 11:17 SAK (Rec: 06/26/24 08:49 SAK [id number]) Sensation Evaluation Gross Sensation Gross Sensation WNL PT-OP-J Posture/Palpation/Skin Start: 06/25/24 08:13 Freq: Status: Active Protocol: Document 06/25/24 11:17 SAK (Rec: 06/25/24 12:14 SAK [id number]) Posture Evaluation Position Standing Head/C-Spine Posture Forward Head T-Spine Posture Increased Kyphosis Weight Distribution Weight Shifted Left Palpation Assessment Location scar Palpation Details mild decrease in mobility, well healed, no signs or symptoms of infection Skin Assessment Edema Assessment right hip Edema Degree 1+ Incisional Assessment Incision Appearance/Comments good healing, no signs or symptoms of infection PT-OP-K Range of Motion Start: 06/25/24 08:13 Freq: Status: Active Protocol: Document 06/25/24 11:17 SAK (Rec: 06/25/24 12:14 SAK [id number]) Hip Goniometric Range of Motion Hip left Hip ROM WFL Yes right Hip ROM WFL Yes Knee Goniometric Range of Motion Knee royal Knee ROM WFL Yes PT-OP-M Strength Start: 06/25/24 08:13 Freq: Status: Active Protocol: Document 06/25/24 11:17 SAK (Rec: 06/25/24 12:14 SAK [id number]) Trunk Strength Trunk Manual Muscle Testing Flexion 2 Poor Extension 2 Poor Core Stabilization poor Hip Strength Hip Manual Muscle Testing Right Flexion (L2) 4 Good Extension (S1) 4- Good- Abduction 4 Good Adduction 3+ Fair+ External Rotation 5 Normal Internal Rotation 5 Normal Left Flexion (L2) 4+ Good+ Extension (S1) 4- Good- Abduction 4+ Good+ Adduction 4+ Good+ External Rotation 4+ Good+ Internal Rotation 4 Good PT-OP-Q Treatments Start: 06/25/24 08:13 Freq: Status: Active Protocol: Document 08/13/24 09:47 [facility] (Rec: 08/13/24 10:33 [facility] [id number]) Therapeutic Exercises Supine Exercises hamstring stretch Reps/Minutes 2x30 piriformis Side bilateral Reps/Minutes 2x figure 4 Side bilateral Reps/Minutes 2x bridge Reps/Minutes 10x Sidelying Exercises hip abduction Reps/Minutes 10x Sitting Exercises figure 4 Reps/Minutes 2x Standing Exercises SLS Reps/Minutes 5x Comments max 2 sec PT-OP-R Modalities Start: 06/25/24 08:13 Freq: Status: Active Protocol: Document 08/13/24 09:47 [facility] (Rec: 08/13/24 10:33 [facility] [id number]) Electric Stimulation Electric Stimulation Interferential Current (IFC) Body Location right hip Intensity 16 Target/Sweep Sweep Combined With Heat/Cold Hot Pack PT-OP-T Assessment and Plan Start: 06/25/24 08:13 Freq: Status: Active Protocol: Document 08/13/24 09:47 [facility] (Rec: 08/13/24 10:33 [facility] [id number]) Physical Therapy Assessment Goals Three Impairment Balance dysfunction; unable to stand on right leg without UE support, L 2se Pen[facility]iary Goal (LTG) Patient will be able to stand on right leg for at least 10 sec as measure of improved balance and safety 08/13/24: 2 sec max LTG Duration 08/26/24 Two Impairment gait dysfunction Short Term Goal (STG) Patient will demonstrate 50% reduction in lateral lean with gait for improved tolerance of gait in the home and community 08/13/24: goal met STG Duration 07/26/24 Burrer Hand Goal (LTG) Patient will be able to walk for at least 15 min without significant gait dysfunction without assistive device to allow him to return to taking walks and being able to walk in grocery store instead of current use of motorized cart. 08/13/24: not met, patient does not work on this on his own. Instructed in importance of decreased compensatory movements for health of body. LTG Duration 08/26/24 One Impairment weakness right hip Short Term Goal (STG) Patient to be instructed in individualized, progressive HEP for purposes of right hip and core strengthening 08/13/24: instructed but noncompliant STG Duration 07/26/24 Penitentiary Goal (LTG) Patient to be independent and compliant with HEP and demonstrate improvement in strength to at least 4+/5 all muscle groups right hip and core to allow him to return to prior level of function 08/13/24: goal progress but not met due to noncompliance to HEP LTG Duration 08/26/24 Assessment Summary Assessment Despite noncompliance and pt expressing attitude of not wanting to be in PT he has made some progress toward goals. Feel if he were compliant to HEP he would meet all goals but patient expresses attitude of indifference. He states I almost tried to get out of today's session. Patient agreable to discharge from PT today. Physical Therapy Plan Discharge Physical Therapy Discharge Comments noncompliance, plateau in progress.
== END 2024-08-14 14:48 | disposition home or self-care (01) ==
LOC: PHYS 09:45
PROVIDERS: Family Provider Nurse Practitioner Family; PCP Registered Nurse; Referring Provider Orthopaedic Surgery; Visit Provider Orthopaedic Surgery
DX: M16.11 Unilateral primary osteoarthritis, right hip (principal); Z96.649 Presence of unspecified artificial hip joint; R53.1 Weakness; R26.2 Difficulty in walking, not elsewhere classified
CPT/HCPCS: 97014; 97110; 97112; 97116; 97140; 97162; 97535; G0283

== ENCOUNTER → 2025-10-03 10:08 | Outpatient (CLI) | payer OTHER, MEDICAID, SELFPAY ==
[2024-05-03 15:35] VITALS: BMI 40.8
--- NOTE | 2025-10-03 10:15 | DI.RAD.S_ITS ---
1PROCEDURE: XR LUMBAR SPINE 2-3V
== END ==
PROVIDERS: Family Provider Nurse Practitioner Family; PCP Family Medicine; Referring Provider Internal Medicine Cardiovascular Disease; Visit Provider Internal Medicine Cardiovascular Disease
DX: M47.816 Spondylosis without myelopathy or radiculopathy, lumbar region (principal); M41.9 Scoliosis, unspecified; M54.50 Low back pain, unspecified
CPT/HCPCS: 72100